=== PATIENT | male | born 1940 | race Caucasian/White ===

== ENCOUNTER → 2023-06-13 08:37 | Outpatient (REF) | payer OTHER, SELFPAY | LOC: RCS 08:37 | PROVIDERS: ATTENDING PHYSICIAN Internal Medicine Cardiovascular Disease; FAMILY PHYSICIAN Family Medicine | DX: I49.8 Other specified cardiac arrhythmias (principal) | CPT/HCPCS: 93225; 93226 ==

== ENCOUNTER → 2023-08-04 10:48 | Outpatient (REF) | payer OTHER, SELFPAY | LOC: DHCBC MAIN 10:48 | PROVIDERS: ATTENDING PHYSICIAN Internal Medicine Cardiovascular Disease; FAMILY PHYSICIAN Family Medicine | DX: Z95.1 Presence of aortocoronary bypass graft (principal); I35.0 Nonrheumatic aortic (valve) stenosis | CPT/HCPCS: 93306 ==

== ENCOUNTER 2023-11-19 13:17 | Inpatient (IN) | payer OTHER, SELFPAY ==
[2023-11-19] VITALS (36 sets, daily range): BP systolic 109–190; BP diastolic 73–129; BMI 27.2
[2023-11-19 10:34] LABS: % Basophils 0.5 % (0-2); % Immature Granulocytes 0.3 % (0-0.5); % Lymphocytes 15.3 % (20.5-51.1); % Monocytes 7.7 % (1.7-9.3); % Neutrophils 75.2 % (42.2-75.2); Absolute Eosinophils 0.1 10^3/uL (0-0.7); Absolute Lymphocytes 0.9 10^3/uL (1.2-3.4); Absolute Monocytes 0.5 10^3/uL (0.1-0.6); Absolute Neutrophils 4.5 10^3/uL (1.4-6.5); Hematocrit 39.1 % (39.0-52.0); Hemoglobin 13.3 g/dL (13.0-18.0); Mean Corpuscular Hgb 31.4 pg (27.0-31.0); Mean Corpuscular Volume 92.2 fL (80.0-94.0); Mean Platelet Volume 9.8 fL (7.4-10.4); Nucleated Red Blood Cells % 0 % (-); Platelet Count 203 10^3/uL (130-400); Red Blood Cell Count 4.24 10^6/uL (4.70-6.10); Red Cell Dist. Width 13.5 % (11.5-14.5)
[2023-11-19 10:52] LABS: ALT (SGPT) 16 U/L (0-50); AST (SGOT) 25 U/L (17-59); Albumin 3.5 g/dl (3.5-5.0); Alkaline Phosphatase 42 U/L (38-126); Blood Urea Nitrogen 19 mg/dl (9-20); Calcium 8.6 mg/dl (8.4-10.2); Carbon Dioxide 28 mmol/L (22-30); Chloride 105 mmol/L (98-107); Estimated Creatinine Clearance 56 ml/min; Glucose 97 mg/dl (70-99); Potassium 4.7 mmol/L (3.5-5.1); Sodium 137 mmol/L (135-145); Total Bilirubin 0.6 mg/dl (0.2-1.3); Total Protein 6.1 g/dl (6.3-8.2); eGFR > 60.00
--- NOTE | 2023-11-19 11:06 | ED.GENMED ---
History of Present Illness
<Geoff Kong PA-C - Last Filed: 11/19/23 14:33>
General
Chief Complaint: Heart Rate Problem
Time Seen by Provider: 11/19/23 09:46
History of Present Illness
History of Present Illness:
83-year-old male with history of paroxysmal SVT and A-fib currently on Eliquis presents to the emergency department for evaluation of heart palpitations for the past 4 days. He notes that the onset of symptoms he felt fatigued and his blood
pressure was low, as a result he has been taking less of his normal diltiazem throughout the week and his blood pressure has improved. He had similar symptoms last year and was in this emergency department, subsequently underwent electrical
cardioversion. He reports has been compliant with his Eliquis. He is also following with cardiology as an outpatient for aortic stenosis, last echo was July 2023 showing moderate to severe with dilated aortic root and ascending aorta. Patient
denies any chest pain or leg swelling. He states that shortness of breath is chronic and unchanged
Past History
<Geoff Kong PA-C - Last Filed: 11/19/23 14:33>
Past History
ED Past Medical History: CAD, HTN, Hypercholesterolemia, MT, Other (Hernia) and Other (BPH)
ED Past Surgical History: Cardiac (CABG)
Social History
Tobacco: Smoker (occasional Cigar)
Alcohol: Occasional
Drug: None
Personal:
Living: alone
Family History
Family History: Early CAD
Review of Systems
<Geoff Kong PA-C - Last Filed: 11/19/23 14:33>
Review of Systems
Allergies reviewed?: Yes
All Other Systems: ROS reviewed and negative except as documented in HPI and ROS
Phy Exam
<Geoff Kong PA-C - Last Filed: 11/19/23 14:33>
Physical Exam
Physical Exam:
GEN: Well appearing, NAD, WDWN
Eyes: PERRLA, EOMs intact, no scleral icterus
HENT: NCAT, oral mucosa moist, no JVD
Lungs: CTAB, no wheezes, rales, rhonchi, normal chest wall excursion
Cardiac: Tachycardic, regular, loud systolic murmur
Abdomen: S, NT, ND, NABS, no masses or hepatosplenomegaly
Neuro: AO x 3
MSK: No gross deformity or ecchymosis. No edema. No digital clubbing
Skin: No rashes, petechiae. Normal color, no pallor or jaundice.
Psych: Calm, cooperative, proper hygiene
Course
<Geoff Kong PA-C - Last Filed: 11/19/23 14:33>
Orders/Labs/Results
Orders:
Orders
11/19/23 09:41
Electrocardiogram (*1) Urgent
Reason for Study: Bradycardia / Tachycardia
EKG- Treatment ONCE
11/19/23 10:27
Complete Blood Count/With Diff Urgent
Comprehensive Metabolic Panel Urgent
Magnesium Urgent
11/19/23 10:31
TSH Reflex To Free T4 Urgent
Comment: ADD ON
11/19/23 11:15
Propofol [Diprivan] 20 ml .ROUTE .STK-MED
11/19/23 11:20
EKG [Electrocardiogram (*1)] Urgent
Reason for Study: Atrial Flutter
EKG- Treatment ONCE
11/19/23 13:02
Admit/Transfer Patient As Directed
Co-Sign Provider:
Level of Care: Inpatient admission
Assign to:: IVU
Physician / Group: mona alexander
Diagnosis: svt cardioversion w/ bradycardia/pausea, acclerated htn
Reason for Hospitalization: svt cardioversion w/ bradycardia/pausea, acclerated htn
Expected length of stay greater than two midnights?: Yes
ELOS- Estimated Length of Stay in days: 3
I certify the patient meets the requirements for IP care: Yes
Code Status As Directed
Resuscitation Status: Full Code
CARDIOLOGY CONSULT Routine
Consulting Provider: Ricardo Blanc
Was physician already notified: Yes
Reason for consult: svt, bradycardia with pauses post cardioversion
11/19/23 13:09
Add On- LAB Urgent
Tests Added?: tsh with free t4
11/19/23 13:16
HydrALAZINE [Apresoline] 5 mg IV NOW STA
11/19/23 Dinner
Cholesterol Lowering
At Your Request: Non-Participating
Cholesterol Lowering: Sodium, 2 Gram
Abnormal Lab Results
11/19/23
10:27
RBC 4.24 L 10^6/uL
(4.70-6.10)
MCH 31.4 H pg
(27.0-31.0)
Absolute Lymphs (auto) 0.9 L 10^3/uL
(1.2-3.4)
Lymphocytes % 15.3 L %
(20.5-51.1)
Total Protein 6.1 L g/dl
(6.3-8.2)
11/19/23 10:27
11/19/23 10:27
Vital Signs
Initial and Last Documented VS:
Initial Vital Signs
Temp Pulse Resp BP Pulse Ox
98.2 F 112 18 156/101 98
11/19/23 09:37 11/19/23 09:37 11/19/23 09:37 11/19/23 09:37 11/19/23 09:37
Last Documented Vital Signs
Temp Pulse Resp BP Pulse Ox
98.7 F 81 19 155/99 98
11/19/23 11:54 11/19/23 14:05 11/19/23 12:45 11/19/23 14:05 11/19/23 12:45
<Ricardo Parrish, - Last Filed: 11/19/23 12:58>
Orders/Labs/Results
Orders:
Orders
11/19/23 09:41
Electrocardiogram (*1) Urgent
Reason for Study: Bradycardia / Tachycardia
EKG- Treatment ONCE
11/19/23 10:27
Complete Blood Count/With Diff Urgent
Comprehensive Metabolic Panel Urgent
Magnesium Urgent
11/19/23 10:31
TSH Reflex To Free T4 Urgent
Comment: ADD ON
11/19/23 11:15
Propofol [Diprivan] 20 ml .ROUTE .STK-MED
11/19/23 11:20
EKG [Electrocardiogram (*1)] Urgent
Reason for Study: Atrial Flutter
EKG- Treatment ONCE
11/19/23 13:02
Admit/Transfer Patient As Directed
Co-Sign Provider:
Level of Care: Inpatient admission
Assign to:: IVU
Physician / Group: mona alexander
Diagnosis: svt cardioversion w/ bradycardia/pausea, acclerated htn
Reason for Hospitalization: svt cardioversion w/ bradycardia/pausea, acclerated htn
Expected length of stay greater than two midnights?: Yes
ELOS- Estimated Length of Stay in days: 3
I certify the patient meets the requirements for IP care: Yes
Code Status As Directed
Resuscitation Status: Full Code
CARDIOLOGY CONSULT Routine
Consulting Provider: Ricardo Blanc
Was physician already notified: Yes
Reason for consult: svt, bradycardia with pauses post cardioversion
11/19/23 13:09
Add On- LAB Urgent
Tests Added?: tsh with free t4
11/19/23 13:16
HydrALAZINE [Apresoline] 5 mg IV NOW STA
11/19/23 Dinner
Cholesterol Lowering
At Your Request: Non-Participating
Cholesterol Lowering: Sodium, 2 Gram
Abnormal Lab Results
11/19/23
10:27
RBC 4.24 L 10^6/uL
(4.70-6.10)
MCH 31.4 H pg
(27.0-31.0)
Absolute Lymphs (auto) 0.9 L 10^3/uL
(1.2-3.4)
Lymphocytes % 15.3 L %
(20.5-51.1)
Total Protein 6.1 L g/dl
(6.3-8.2)
11/19/23 10:27
11/19/23 10:27
Vital Signs
Initial and Last Documented VS:
Initial Vital Signs
Temp Pulse Resp BP Pulse Ox
98.2 F 112 18 156/101 98
11/19/23 09:37 11/19/23 09:37 11/19/23 09:37 11/19/23 09:37 11/19/23 09:37
Last Documented Vital Signs
Temp Pulse Resp BP Pulse Ox
98.7 F 81 19 155/99 98
11/19/23 11:54 11/19/23 14:05 11/19/23 12:45 11/19/23 14:05 11/19/23 12:45
Procedures
<Geoff Kong PA-C - Last Filed: 11/19/23 14:33>
Cardioversion
Indication:: SVT
Performed by:: Geoff Kong PA-C, Dillon Parrish, DO
Synchronized?: Yes
Energy Used: 150 joules
Number of attempts: 1
Successful?: Yes
Complications: severe bradycardia/sinus pauses post cardioversion
ASA Risk Score: Class III
Any reaction or bad outcome to prior sedation/anesthesia?: No history of a reaction
Sedation level to be attained: moderate
Chart and allergies reviewed: Yes
Patient reassessed prior to sedation: Yes
Time out completed at (validating right patient & procedure): 11:48
History of difficult intubation: No
Airway free of obstruction: Yes
Patient has a gag reflex: Yes
Patient is able to open mouth: Yes
Patient has no dentures: No (dentures removed)
Patient has no loose teeth: No
Medication administered by Provider during Moderate Sedation: IV Propofol (mg)
Total dose administered: 40
Time drug administered: 11:48
Start Time: 11:48
Stop Time: 11:58
<Geoff Kong PA-C - Last Filed: 11/19/23 14:33>
MDM/Problems Addressed
MDM/Problems Addressed:
Unfortunately post cardioversion the patient was noted to have severe bradycardic episodes with prolonged sinus pauses. He remained hemodynamically stable and mentating throughout these episodes. I reviewed the post procedure EKGs and telemetry
strips with cardiology who recommended admission for observation as the patient may require pacemaker if symptoms do not improve. Will be admitted to the hospital service
<Geoff Kong PA-C - Last Filed: 11/19/23 14:33>
*Critical Care Note
Total Time (30-74mins, 75-104mins- exclusive of procedures): Not Applicable
<Geoff Kong PA-C - Last Filed: 11/19/23 14:33>
Update Note
Update Note:
1202: After cardioversion patient is noted to have profound bradycardic episodes in the 30s, uncertain if this represents slow A-fib versus heart block. Blood pressure and mentation remained stable. Will review with cardiology
ED Attending Note
<Geoff Kong PA-C - Last Filed: 11/19/23 14:33>
-
Portions of this chart may have been created with voice recognition software.� Occasional wrong word or��sound alike� substitutions may have occurred due to the inherent limitations of voice recognition software.
<Ricardo Parrish DO - Last Filed: 11/19/23 12:58>
ED Attending Note
Patient seen and examined by attending physician: Yes
I performed the substantive portion of visit, reviewed & personally made and approve the management plan that is documented in note by myself or LETICIA.: Yes
ED Attending Note:
I agree with Faustino's note.
Patient presents to the emergency room for palpitations. Has a history of atrial flutter. He has been cardioverted in the past.
Physical exam
Awake, alert, oriented x 3
HEENT: Mallampati 1 airway
Heart: Mildly tachycardic, systolic ejection murmur present
Lungs: Clear bilaterally
EKG shows a flutter with 2 1 conduction.
We proceeded with cardioversion. Sedation went smoothly. However after being synchronously cardioverted with 150 J the patient converted to a sinus rhythm with significant pauses. He has frequent junctional escape beats and PVCs. Case discussed
with cardiology who recommends hospitalization for monitoring overnight.
Discharge Plan
Departure
Patient Disposition: Admit
Date of Disposition: 11/19/23
Time of Disposition: 12:24
Admit to: Telemetry
Presentation/result/management discussed w/ accepting MD/DO: Hospitalist
Discharge Problem:
Bradycardia, Paroxysmal supraventricular tachycardia
Interventions
Interventions:
*Risk Screen - Suicide Last Done: 11/19/23 10:26
*General Assessment Last Done: 11/19/23 10:39
*Neglect/Abuse Screening Last Done: 11/19/23 10:39
ED- Fall Risk Assessment Last Done: 11/19/23 10:40
*ED COVID-19 Vaccine History Last Done: 11/19/23 10:26
ED- Cardiac Assessment Last Done: 11/19/23 10:41
ED- Pulmonary Assessment Last Done: 11/19/23 10:40
--- NOTE | 2023-11-19 12:36 | HPS.HSE ---
Addendum entered and electronically signed by Juve Miller MD 11/19/23 13:49:
I saw and examined the patient.
The LINE PERSON or PA's note was reviewed and I agree with the note.
Comment: 83-year-old male with past medical history of A-fib, hypertension came to the hospital with persistent elevated heart rate. In the ED patient was noted to be in rapid SVT. Status post cardioversion and then later became bradycardic.
Cardiology wants to monitor patient in the hospital. Patient at this time appears hypertensive. Start hydralazine. Restart lisinopril. Monitor in IVU.
General: No Apparent Distress, Comfortable and Conversant; No Pain, Fever or Chills
HEENT: NormoCephalic, Anicteric and PERRLA
Respiratory: Clear; No Wheezes
Cardiac: S1/S2, Regular Rhythm (80 bpm on monitor with occasional PACs) and Murmur (4/6 systolic murmur with known aortic stenosis); No Rub, Gallop, Peripheral Edema or Calf Tenderness
Breast: Deferred by me
GI: Soft, Non Tender, Non Distended, Normal Bowel Sounds
Rectal: Deferred by Provider
Genito-urinary: Deferred by me
Musculoskeletal:No Edema
Neuro: AO x 3, No Motor Deficits, Nonfocal/grossly intact
Psych: Calm
I spent a total of 77 minutes with the patient or on the floor. More than 50% of this time involved counseling and coordination of care.
Addendum entered and electronically signed by JCARLOS Goode 11/19/23 13:32:
per cardiology will cont ASA 81 mg given hx cad/cabg and Eliquis for AFIB/Flutter
Original Note:
Family Physician
-
Family Physician: Irlanda Diaz
Chief Complaint
-
Elevated heart rate at home recent hypotension 5 days ago
History of Present Illness
83-year-old male from home, where he lives alone presenting to the ER for elevated heart rate 116's over the past 5 days along with fatigue and hypotension as low as 85/63 on Thursday feeling lightheaded and dizzy at that time. He reports he stopped
his lisinopril over the past 5 days and decreased his diltiazem from 30 mg 3 times daily to 30 mg once a day. He came to the ER for persistent elevated heart rates. Upon arrival in the ER he was noted to be in rapid SVT and was successfully
cardioverted but became bradycardic heart rate in the 30s with sinus pauses. His oral Cardizem is going to be held he will be monitored for his bradycardia. He denies recent fever, chills, cold, cough, headache, blurred vision, chest pain,
palpitations, shortness of breath, abdominal pain, nausea, vomit, diarrhea, urinary symptoms. Other past medical history includes moderate to severe aortic stenosis, dilated aortic root and ascending aorta, HTN, HLD, CAD/MS/CABG LEAL to LAD,
sequential SVG to diagonal to OM and SVG to RPDA 2010, BPH/stress incontinence urine/elevated PSA, occasional cigar smoker, abdominal hernia, ambulatory dysfunction, pulm fibrosis, impaired vision, chronic rotator cuff pain.
Medical History
Past Medical History
Past Medical History: Reports Other
Additional Past Medical History:
moderate to severe aortic stenosis
dilated aortic root and ascending aorta
HTN
HLD,
CAD/MS/CABG LEAL to LAD, sequential SVG to diagonal to OM and SVG to RPDA 2010
BPH/stress incontinence urine/elevated PSA,
occasional cigar smoker
Chronic ambulatory dysfunction uses cane for long distance
impaired vision
chronic rotator cuff pain
Past Surgical History: Reports Other
Additional Past Surgical History:
Hernia repair
CAD status post CABG LEAL to LAD, sequential SVG to diagonal to OM and SVG to RPDA 2010
Social History
Tobacco: Smoker (Occasional cigar smoker)
Alcohol: None
Drug: None
Personal: Single
Living: Alone
Employment: Retired
Family History
Family History: CAD (Father MS age 50 age 65 heart disease/alcohol abuse) and Other (Mother age 58 history of alcohol abuse, COPD, CHF, 1 brother alcohol abuse possibly mid 60s)
Allergies / Home Medications
Allergies reflects when Allergies were last updated in [facility].
Home Medications with original date entered in [facility]
Allergy/Medication List:
Allergies
Allergy/AdvReac Type Severity Reaction Status Date / Time
No Known Allergies Allergy Verified 11/19/23 09:40
Home Medications
multivitamin with folic acid 400 mcg tablet (Tab-A-Juan) 1 tab PO QPM Supplement 07/01/17
rosuvastatin 40 mg tablet (Crestor) 40 mg PO DAILY High cholesterol 07/01/17
vitamin E (dl, acetate) 45 mg (100 unit) capsule 100 units PO QPM Supplement 07/01/17
finasteride 5 mg tablet 5 mg PO DAILY Urinary issue 04/11/21
lisinopril 30 mg tablet (Zestril) 30 mg PO DAILY Blood pressure 04/11/21
tramadol 50 mg tablet 50 mg PO Q6HPRN PRN moderate pain 04/11/21
minoxidil 2.5 mg tablet 2.5 mg PO QPM Blood pressure 04/12/21
tamsulosin 0.4 mg capsule 0.4 mg PO QPM Urinary issue 04/12/21
diltiazem HCl 30 mg tablet 30 mg PO TID Blood Pressure 07/10/22
apixaban 5 mg tablet (Eliquis) 5 mg PO BID Blood Clot Prevention/Tx 03/17/23
Review of Systems
-
History Source: Patient
A 12 point ROS was completed and negative except as noted: Yes
Constitutional: Denies Fever, Fatigue or Chills
EENT: Denies Sore Throat, Mouth Swelling or Runny Nose
Respiratory: Denies Cough or Trouble Breathing
Cardiac: Reports Other (Elevated pulse at home); Denies Chest Pain, Diaphoresis or Palpitations
Abdomen/GI: Denies Abdominal Pain, Nausea, Vomiting, Diarrhea, Constipated, Bloody Stools or Black Stools
: Denies Dysuria, Frequency, Flank Pain, Incontinence, Difficulty Voiding or Urgency
Musculoskeletal: Denies Joint Pain or Edema
Skin: Denies Itching or Rash
Neurological: Denies Dizzy, Headache or Weakness
Endocrine: Reports No Symptoms
Hematologic/Lymphatic: Reports No Symptoms
Psych: Reports Calm
Physical Exam
Vital Signs
Vital Signs
Temp Pulse Resp BP Pulse Ox
98.7 F 56 12 143/78 98
11/19/23 11:54 11/19/23 12:04 11/19/23 12:04 11/19/23 12:04 11/19/23 12:04
Physical Exam
General: No Apparent Distress, Comfortable and Conversant; No Pain, Fever or Chills
HEENT: NormoCephalic, Anicteric and PERRLA
Respiratory: Clear; No Wheezes
Cardiac: S1/S2, Regular Rhythm (80 bpm on monitor with occasional PACs) and Murmur (4/6 systolic murmur with known aortic stenosis); No Rub, Gallop, Peripheral Edema or Calf Tenderness
Breast: Deferred by me
GI: Soft, Non Tender, Non Distended, Normal Bowel Sounds and No Hepatosplenomegaly
Rectal: Deferred by Provider
Genito-urinary: Deferred by me
Musculoskeletal: No Clubbing, No Cyanosis and No Edema
Skin: Warm and Dry; No Rash or Jaundice
Neuro: AO x 3, No Motor Deficits, Nonfocal/grossly intact, Cranial Nerves Intact and No Sensory Deficits; No DTR's Intact & Symmetrical, Slurred Speech, Facial Droop or Tremors
Psych: Calm
Laboratory Results
-
11/19/23 10:27
11/19/23 10:27
Laboratory Results
Total Bilirubin 0.6 mg/dl (0.2-1.3) 11/19/23 10:27
AST 25 U/L (17-59) 11/19/23 10:27
ALT 16 U/L (0-50) 11/19/23 10:27
Alkaline Phosphatase 42 U/L (38-126) 11/19/23 10:27
Impression/Plan
-
Impression/plan:
Admit to IVU
#Rapid SVT status post cardioversion in ER with resulting BRADYCARDIA and SINUS PAUSES
#Hx paroxysmal SVT/Paroxysmal A-fib
HR 112> 30 post cardioversion now currently HR [address] on pt
-Continue oral Eliquis
-Hold current diltiazem 30 mg 3 times daily
-Consult CBC cardiology
-Check TSH
2D echo 08/04/2023: EF 50-55%. Mid to basal inferior lateral and basal inferior wall hypokinesis. Moderate to severe aortic stenosis peak mean gradient 42/27 mmHg.
Dilated aortic root and ascending aorta 4.2 cm, 4.5 cm
#Hx of severe aortic stenosis
Patient reports as of now no current plan to replace until symptomatic
#CAD status post CABG LEAL to LAD, sequential SVG to diagonal to OM and SVG to RPDA 2010
--Continue oral Eliquis, Crestor
? Continue aspirin 81 mg�defer to cardiology
# HTN urgency /HTN�benign
183/110
190/110 right arm, 188/110 left arm
-IV hydralazine 5 mg now, 10 mg as needed every 6h SBP greater than 160
-RESUME lisinopril 30 mg daily-patient has not taken in the past 5 days
-Hold Cardizem 30 mg 3 times daily due to bradycardia
#HLD
-Continue Crestor 40 mg daily
#BPH/stress incontinence urine
#Hx elevated PSA stopping monitor at age 76
-Continue finasteride 5 mg daily, Flomax 0.4 mg every afternoon can be 30 3 times daily 30 cm right
#Chronic ambulatory dysfunction
-Uses cane long distance
pt/ot case mgmteval
#Occasional cigar smoker
Other PMH:
Diverticulosis
Impaired vision
Rotator cuff
DVT prophylaxis
Continue [employer] Eliquis
Full code
--- NOTE | 2023-11-19 13:13 | CON.CAR ---
Addendum entered and electronically signed by Ricardo Blanc MD 11/19/23 14:30:
Patient seen and examined in collaboration with RECEIVABLE CLERK; agree with below.
-83-year-old male with CAD status-post remote CABG (2010), moderate to severe aortic stenosis, paroxysmal atrial fibrillation/PSVT/Atach (on Eliquis), hypertension, and hyperlipidemia admitted with symptomatic atrial fibrillation with RVR.
-Patient was holding antihypertensive medications at home due to elevated heart rates and low blood pressure.
-Patient was electrically cardioverted in the ER, but subsequently developed bradycardia to the 30s (sinus bradycardia with occasional PACs and junctional escape).
-Patient should be admitted to the hospitalist service for monitoring on telemetry.
-May ultimately need to undergo permanent pacemaker; will have patient evaluated by EP Cardiology tomorrow to help make that determination.
-Hold diltiazem for now.
-NPO after midnight for now.
Original Note:
Consultation
Consultation Request
Date/Time Consultation Requested: 11/19/23 12:30p
Date/Time Consultation Performed: 11/19/23 12:45p
Requesting Provider: JCARLOS Goode
Performing Provider: JCARLOS Slaughter for Dr. Blanc
Reason for Consultation: bradycardia s/p CV for Aflutter
Medical History
-
Chief Complaint: elevated HR, dizziness
History of Present Illness:
Mr. Kaba is an 83 yo male with paroxysmal Afib on Eliquis, CAD s/p CABG 2010, moderate to severe , HTN, HLD and BPH, who presents to the ER with c/o dizziness, mild SOB and elevated HR 110-115 for 5 days. EKG in ER showed Aflutter 2:1 109 bpm.
He was cardioverted in the ER, confirmed no missed doses of Eliquis, which resulted in sinus bradycardia with PACs and ventricular escape beats. He states 5 days ago, Thursday, his BP was 85/63 with pulse 110 bpm and therefore he held his Lisinopril
30mg daily. His BP improved off Lisinopril, BP was stable and therefore he was only taking Diltiazem 30mg once a day (instead of TID). BP is now elevated in the ER. He is in NSR/SB with PACs and Diltiazem is held due to SB. He denies any cardiac
symptoms currently. He is admitted to the hospitalist service and we are consulted for sinus bradycardia, Aflutter/Afib and possible pacemaker.
Past Medical History
Past Medical History: Other (as above)
Past Surgical History: Other (as above)
Social History
Tobacco: Former Smoker
Alcohol: None
Living: Alone
Employment: Retired
Family History
Family History: Reviewed & Not Pertinent
Allergies / Home Medications
Allergy/AdvReac Type Severity Reaction Status Date / Time
No Known Allergies Allergy Verified 11/19/23 09:40
�Medication �Instructions �Recorded �Confirmed �Type
multivitamin with folic acid 400 1 tab PO QPM Supplement 07/01/17 11/19/23 History
mcg tablet (Tab-A-Juan)
rosuvastatin 40 mg tablet (Crestor) 40 mg PO DAILY High cholesterol 07/01/17 11/19/23 History
vitamin E (dl, acetate) 45 mg (100 100 units PO QPM Supplement 07/01/17 11/19/23 History
unit) capsule
finasteride 5 mg tablet 5 mg PO DAILY prostate issues 04/11/21 11/19/23 History
lisinopril 30 mg tablet (Zestril) 30 mg PO DAILY Blood pressure 04/11/21 11/19/23 History
tramadol 50 mg tablet 50 mg PO Q6HPRN PRN moderate pain 04/11/21 11/19/23 History
tamsulosin 0.4 mg capsule 0.4 mg PO QPM Urinary issue 04/12/21 11/19/23 History
diltiazem HCl 30 mg tablet 30 mg PO TID Arrhythmia 07/10/22 11/19/23 History
apixaban 5 mg tablet (Eliquis) 5 mg PO BID Blood Clot 03/17/23 11/19/23 History
Prevention/Tx
aspirin 81 mg tablet,delayed 81 mg PO DAILY Blood Clot 11/19/23 11/19/23 History
release Prevention/Tx
Review of Systems
-
History Source: Patient
All other systems: Negative unless noted
Physical Exam
Vital Signs
Temp Pulse Resp BP Pulse Ox
98.7 F 78 19 182/113 98
11/19/23 11:54 11/19/23 12:45 11/19/23 12:45 11/19/23 12:45 11/19/23 12:45
Lab Results
11/19/23 10:27
11/19/23 10:27
Physical Exam
General: Well Developed, Well Nourished and No Apparent Distress
HEENT: Normocephalic, Anicteric and Moist Mucous Membranes
Respiratory: Clear and Non Labored Respirations
Cardiac: S1/S2, Regular Rhythm (bradycardia at times) and Murmur (3/6 ZACKERY)
Breast: Deferred by me
GI: Soft, Non Tender, Non Distended and Normal Bowel Sounds
Rectal: Deferred by Provider
Genito-urinary: Clear Urine
Musculoskeletal: No Clubbing, No Cyanosis and No Edema
Skin: Warm and Dry
Neuro: AO x 3
Hematologic/Lymphatic: No Lymphadenopathy
Psych: Calm
Impression / Plan
-
Bradycardia - sinus, immediately after cardioversion
- hold Diltiazem 30mg TID and monitor on tele.
- tachy-zbigniew syndrome noted.
- plan for NPO after midnight and possible PPM tomorrow after seen by EP cardiology.
HTN - elevated in ER.
- due to holding Lisinopril and reduced Diltiazem doses for 5 days.
- IV Hydralazine now and resume Lisinopril and monitor.
- titrate Lisinopril as needed.
CAD - stable w/o angina.
- s/p CABG 2010.
- cath 2022 with patent bypass grafts.
ICM - previously 40-45%, resolved and now EF 50-55%.
- no overt HF symptoms.
- monitor.
echo 08/04/23: EF 50-55%, mid to basal inferolateral and basal inferior wall HK, normal RV size/function, mod-severe peak/mean gradients 42/27 mmHg, ALAINA 0.9 cm2, dilated aortic root/ascending aorta 4.2/4.5cm
Data Reviewed
-
EKG: Tracing Personally Visualized and interpreted (Aflutter 2:1 conduction 109 bpm)
Medical Tests (Nuc Med, Echo etc): Report Reviewed by me (echo 08/04/23: EF 50-55%, mid to basal inferolateral and basal inferior wall HK, normal RV size/function, mod-severe peak/mean gradients 42/27 mmHg, ALAINA 0.9 cm2, dilated aortic
root/ascending aorta 4.2/4.5cm)
Labs: Labs Reviewed by me
Old Records: Reviewed
--- NOTE | 2023-11-19 13:49 | W.PN.UPDATE ---
Update Note
Progress Note Update
For billing purposes only
[2023-11-19] MEDS: APRESOLINE 5 MG IV (14:05)
[2023-11-19 15:45] LABS: TSH Reflex To Free T4 2.31 uIU/ml (0.47-4.68)
--- NOTE | 2023-11-19 16:15 | CM ---
Reviewed chart. Met with Mr. Kaba to review discharge plans. He states prior to admission he resides alone in a second floor apartment with twelve steps to enter. He states prior to admission he was independent with ambulation in the apartment
but he uses a single point cane in the community. He states prior to admission he was independent with adls. He states he has a prescription plan and uses [facility]. He states he does not have any help in the home. He states his son resides
about an hour away. He states he [place] near the [place] and his neighbors are very supportive. Medical work-up in progress. The discharge plan is to return home when medically stable.
[2023-11-19] MEDS: FLOMAX PO (17:16)
[2023-11-19] MEDS: THERAGRAN 1 TABLET PO (17:16)
[2023-11-19] MEDS: FLOMAX 0.4 MG PO (18:03)
[2023-11-19] MEDS: ELIQUIS 5 MG PO (20:01)
[2023-11-20] VITALS (7 sets, daily range): BP systolic 131–172; BP diastolic 80–104; PULSE 79–80; BMI 26.9
[2023-11-20 05:07] LABS: % Basophils 0.5 % (0-2); % Eosinophils 2.3 % (0-6); % Immature Granulocytes 0.3 % (0-0.5); % Lymphocytes 18.2 % (20.5-51.1); % Monocytes 10.3 % (1.7-9.3); % Neutrophils 68.4 % (42.2-75.2); Absolute Eosinophils 0.1 10^3/uL (0-0.7); Absolute Lymphocytes 1.1 10^3/uL (1.2-3.4); Absolute Monocytes 0.6 10^3/uL (0.1-0.6); Absolute Neutrophils 4.2 10^3/uL (1.4-6.5); Hematocrit 38.8 % (39.0-52.0); Hemoglobin 13.2 g/dL (13.0-18.0); Mean Corpuscular Hgb 31.4 pg (27.0-31.0); Mean Corpuscular Volume 92.2 fL (80.0-94.0); Mean Platelet Volume 10.4 fL (7.4-10.4); Nucleated Red Blood Cells % 0 % (-); Platelet Count 192 10^3/uL (130-400); Red Blood Cell Count 4.21 10^6/uL (4.70-6.10); Red Cell Dist. Width 13.4 % (11.5-14.5); White Blood Cell Count 6.1 10^3/uL (4.8-10.8)
[2023-11-20 05:31] LABS: ALT (SGPT) 15 U/L (0-50); AST (SGOT) 23 U/L (17-59); Albumin 3.4 g/dl (3.5-5.0); Alkaline Phosphatase 48 U/L (38-126); Blood Urea Nitrogen 17 mg/dl (9-20); Carbon Dioxide 25 mmol/L (22-30); Chloride 105 mmol/L (98-107); Estimated Creatinine Clearance 61 ml/min; Glucose 90 mg/dl (70-99); Potassium 4.5 mmol/L (3.5-5.1); Sodium 137 mmol/L (135-145); Total Bilirubin 0.7 mg/dl (0.2-1.3); Total Protein 6.1 g/dl (6.3-8.2); eGFR > 60.00
--- NOTE | 2023-11-20 05:47 | PTCARENOTE ---
Pt NPO after midnight for possible pacemaker insertion today. Pt states that he doesn't think he needs it and doesn't really want it done. Encouraged pt to talk to physician. CHG bath done.
--- NOTE | 2023-11-20 05:48 | PTCARENOTE ---
Pt with occasional 2 second pause-see strip. Pt also had 2 episodes of heart rate 140s which were self limiting-see strip.
[2023-11-20] MEDS: CRESTOR 40 MG PO (08:17)
[2023-11-20] MEDS: ASPIR LOW (ENTERIC COATED) 81 MG PO (08:17)
[2023-11-20] MEDS: FLUSH (NSS) 1 FLUSH IV (08:18)
[2023-11-20] MEDS: ZESTRIL 30 MG PO (08:18)
[2023-11-20] MEDS: ELIQUIS 5 MG PO (08:18)
[2023-11-20] MEDS: PROSCAR 5 MG PO (08:18)
--- NOTE | 2023-11-20 11:13 | W.DS.TRANS ---
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
-
Discharge Instructions:
Sleep Apnea Risk Intermediate
Discharge Diagnosis/Procedures Afib
Diet Regular
Instructions:
Stand-Alone Forms:
Changes to Home Medications: No
Discharge Medications:
DC Medications w/original date entered in [employer]
multivitamin with folic acid 400 mcg tablet (Tab-A-Juan) 1 tab PO QPM Supplement 07/01/17
rosuvastatin 40 mg tablet (Crestor) 40 mg PO DAILY High cholesterol 07/01/17
vitamin E (dl, acetate) 45 mg (100 unit) capsule 100 units PO QPM Supplement 07/01/17
finasteride 5 mg tablet 5 mg PO DAILY prostate issues 04/11/21
lisinopril 30 mg tablet (Zestril) 30 mg PO DAILY Blood pressure 04/11/21
tramadol 50 mg tablet 50 mg PO Q6HPRN PRN moderate pain 04/11/21
tamsulosin 0.4 mg capsule 0.4 mg PO QPM Urinary issue 04/12/21
diltiazem HCl 30 mg tablet 30 mg PO TID Arrhythmia 07/10/22
apixaban 5 mg tablet (Eliquis) 5 mg PO BID Blood Clot Prevention/Tx 03/17/23
aspirin 81 mg tablet,delayed release 81 mg PO DAILY Blood Clot Prevention/Tx 11/19/23
Home Medication Changes
Pending Results: No
--- NOTE | 2023-11-20 12:53 | W.PN.UPDATE ---
Update Note
Progress Note Update
Atrial flutter with 2:1 conduction
Mild to moderate asymptomatic sinus node dysfunction
CAD
No class I indication for pacing
Perhaps a soft class II indication for pacing if we felt more meds needed and more bradycardia anticipated
Ablation of AFib and aflutter are options as well
I educated him about signs/symptoms of bradycardia that would warrant pacer placement
--- NOTE | 2023-11-20 13:01 | CM ---
Reviewed chart. Met with Mr. Kaba to review discharge plans. He states is feeling well and maybe able to go home soon. He did well in therapy today, ambulating a 100 feet with supervision. Prior to admission he resides alone in a second floor
apartment with twelve steps to enter. Prior to admission he was independent with ambulation in the apartment, but uses a single point cane in the community. Prior to admission he was independent with adls. He has a single point cane at home. He
has a prescription plan and uses [facility]. He has supportive neighbors. Medical work-up in progress. The discharge plan is to return home when medically stable.
== END 2023-11-20 13:49 | disposition home or self-care (01) | DRG 310 ==
LOC: IVU 13:17
PROVIDERS: Clinical Nurse Specialist Family Health; Physician Assistant; ADMITTING PHYSICIAN Internal Medicine; ATTENDING PHYSICIAN Internal Medicine; CONSULT PHYSICIAN Internal Medicine; EMERGENCY PHYSICIAN Emergency Medicine; FAMILY PHYSICIAN Family Medicine
PROC: 5A2204Z Restoration of Cardiac Rhythm, Single (ICD-10-PCS; 2023-11-19)
DX: I48.0 Paroxysmal atrial fibrillation (principal); I47.10 Supraventricular tachycardia, unspecified; I16.0 Hypertensive urgency; I10 Essential (primary) hypertension; I35.0 Nonrheumatic aortic (valve) stenosis; I77.810 Thoracic aortic ectasia; J84.10 Pulmonary fibrosis, unspecified; I95.9 Hypotension, unspecified; Z95.1 Presence of aortocoronary bypass graft; I25.10 Atherosclerotic heart disease of native coronary artery without angina pectoris; I25.2 Old myocardial infarction; I25.5 Ischemic cardiomyopathy; I49.1 Atrial premature depolarization; I48.92 Unspecified atrial flutter; E78.5 Hyperlipidemia, unspecified; N40.1 Benign prostatic hyperplasia with lower urinary tract symptoms; N39.3 Stress incontinence (female) (male); F17.290 Nicotine dependence, other tobacco product, uncomplicated; R26.89 Other abnormalities of gait and mobility; R00.1 Bradycardia, unspecified; Z79.01 Long term (current) use of anticoagulants; Z79.899 Other long term (current) drug therapy; Z87.19 Personal history of other diseases of the digestive system; Z82.49 Family history of ischemic heart disease and other diseases of the circulatory system
CPT/HCPCS: 80053; 83735; 84443; 85025; 92960; 93005; 97161; 97165; 99152; 99285

== ENCOUNTER 2024-01-02 03:45 | Inpatient (IN) | payer OTHER, SELFPAY ==
[2024-01-01 21:55] VITALS: BP 118/72
[2024-01-01 22:11] LABS: % Basophils 0.4 % (0-2); % Eosinophils 0.7 % (0-6); % Immature Granulocytes 0.3 % (0-0.5); % Lymphocytes 10.8 % (20.5-51.1); % Monocytes 8.8 % (1.7-9.3); Absolute Eosinophils 0.1 10^3/uL (0-0.7); Absolute Lymphocytes 0.8 10^3/uL (1.2-3.4); Absolute Monocytes 0.6 10^3/uL (0.1-0.6); Absolute Neutrophils 5.7 10^3/uL (1.4-6.5); Hematocrit 24.6 % (39.0-52.0); Hemoglobin 8.6 g/dL (13.0-18.0); Mean Corpuscular Hgb 32.6 pg (27.0-31.0); Mean Corpuscular Volume 93.2 fL (80.0-94.0); Mean Platelet Volume 10.8 fL (7.4-10.4); Nucleated Red Blood Cells % 0 % (-); Platelet Count 172 10^3/uL (130-400); Red Blood Cell Count 2.64 10^6/uL (4.70-6.10); Red Cell Dist. Width 13.5 % (11.5-14.5); White Blood Cell Count 7.2 10^3/uL (4.8-10.8)
[2024-01-01 22:27] LABS: APTT 32.9 Sec (23.4-35.0)
[2024-01-01 22:40] LABS: NT-proBNP 1660 pg/ml; Troponin I 0.107 ng/ml
[2024-01-01 23:02] VITALS: BP 98/54
[2024-01-01 23:52] VITALS: BP 144/78
[2024-01-01 23:53] VITALS: BP 147/86
[2024-01-02] VITALS (21 sets, daily range): BP systolic 110–155; BP diastolic 57–89; PULSE 53–94; O2SAT 98; BMI 27.2; BMI 26.6
[2024-01-02 00:39] LABS: ALT (SGPT) 21 U/L (0-50); AST (SGOT) 47 U/L (17-59); Albumin 3.1 g/dl (3.5-5.0); Alkaline Phosphatase 43 U/L (38-126); Blood Urea Nitrogen 20 mg/dl (9-20); Calcium 8.8 mg/dl (8.4-10.2); Carbon Dioxide 24 mmol/L (22-30); Chloride 106 mmol/L (98-107); Estimated Creatinine Clearance 61 ml/min; Glucose 113 mg/dl (70-99); Sodium 139 mmol/L (135-145); Total Bilirubin 0.4 mg/dl (0.2-1.3); Total Protein 5.5 g/dl (6.3-8.2); eGFR > 60.00
--- NOTE | 2024-01-02 01:56 | ED.GENMED ---
History of Present Illness
General
Chief Complaint: Breathing Problem
Source: patient and records
Exam Limitations: none
Time Seen by Provider: 01/01/24 23:37
Nursing documentation reviewed up to this point in time: agreed with
History of Present Illness
History of Present Illness:
Patient is an 83-year-old male with a history of aortic stenosis who presents to the emergency department with increasing weakness and shortness of breath. 3 days ago the patient was admitted to a different hospital after having rectal bleeding.
Patient was discharged at 4 PM today. Patient got home and went up steps and felt very very short of breath. Patient rested and continue to feel short of breath. Around 8 PM the patient laid down and did not feel any improvement so he came to the
emergency department. Patient stools the past 2 days have been dark and he has had 3 loose stools since that time. Patient denies chest pain, fever or chills. Patient denies any abdominal pain, nausea, vomiting. Patient denies any leg pain or
swelling. Patient denies any symptoms. Patient states they contemplated doing a transfusion but ultimately did not. Patient is not taking his Eliquis presently after the bleeding.
Past History
Past History
ED Past Medical History: Arrthythmia, CAD, HTN, Hypercholesterolemia, [place], Valvular disease, Other (Hernia) and Other (BPH)
ED Past Surgical History: Cardiac (CABG)
Social History
Tobacco: Former smoker (occasional Cigar)
Alcohol: Occasional
Drug: None
Personal:
Living: alone
Family History
Family History: Early CAD
Review of Systems
Review of Systems
All Other Systems: ROS reviewed and negative except as documented in HPI and ROS
Constitutional: Reports fatigue; Denies fever or chills
EENT: Reports no symptoms
Respiratory: Reports trouble breathing
Cardiac: Reports no symptoms
ABD/GI: Reports diarrhea and black stools; Denies abdominal pain, nausea or vomiting
: Reports no symptoms
Musculoskeletal: Reports no symptoms
Skin: Reports no symptoms
Neurological: Reports no symptoms
Hematologic/Lymphatic: Denies bruising
Phy Exam
Physical Exam
Physical Exam:
Physical Exam
General: mild distress, alert and appropriate, well nourished, well hydrated
HENT: Normocephalic, supple with no lymphadenopathy, no thyromegaly
Eyes: Clear sclera, conjuctiva without injection
Heart: Regular rhythm and rate. No S3, S4. Grade 3/6 holosystolic harsh murmur heard best at the base. No NVD
Lungs: No respiratory distress, no stridor, lung sounds clear and equal bilaterally
Abdomen: Soft, nontender, no organomegaly, BS good
Neuro: Alert and oriented x 3, CN II - XII intact, no motor focality
Skin: no rash. Pale
Psychiatric: well kept. interactive and cooperative
Extremities: No edema, cyanosis, tenderness
Scores
Heart Failure Risk
Heart Failure Risk Score: Not Applicable
Course
Orders/Labs/Results
Orders:
Orders
01/01/24 21:59
Electrocardiogram (*1) Urgent
Reason for Study: Shortness of Breath
EKG- Treatment ONCE
CR Chest - 2 Views Urgent
Comment:
Reason For Exam: SOB
01/01/24 22:04
Complete Blood Count/With Diff Urgent
NT-proBNP Urgent
PTT Urgent
Troponin I Urgent
01/01/24 22:41
Comprehensive Metabolic Panel Urgent
01/02/24 00:17
Type+Screen Urgent
01/02/24 01:55
Blood Bank Products [* Blood Bank Products] Urgent
Blood Bank Products: *Packed RBC Leuko(PRBC's)
Quantity: 2
Transfuse Today: Yes
Reason: Anemia
Abnormal Lab Results
01/01/24 01/02/24
22:04 00:17
RBC 2.64 L 10^6/uL
(4.70-6.10)
Hgb 8.6 L g/dL
(13.0-18.0)
Hct 24.6 L %
(39.0-52.0)
MCH 32.6 H pg
(27.0-31.0)
MPV 10.8 H fL
(7.4-10.4)
Absolute Lymphs (auto) 0.8 L 10^3/uL
(1.2-3.4)
Neutrophils % 79.0 H %
(42.2-75.2)
Lymphocytes % 10.8 L %
(20.5-51.1)
Glucose 113 H mg/dl
(70-99)
Troponin I 0.107 H* ng/ml
Total Protein 5.5 L g/dl
(6.3-8.2)
Albumin 3.1 L g/dl
(3.5-5.0)
Crossmatch IS Only See Detail
01/01/24 22:04
01/02/24 00:17
Vital Signs
Initial and Last Documented VS:
Initial Vital Signs
Temp Pulse Resp BP Pulse Ox
98.1 F 57 18 118/72 96
01/01/24 21:55 01/01/24 21:55 01/01/24 21:55 01/01/24 21:55 01/01/24 21:55
Last Documented Vital Signs
Temp Pulse Resp BP Pulse Ox
98.1 F 86 22 149/77 99
01/01/24 21:55 01/02/24 00:30 01/02/24 00:30 01/02/24 00:21 01/02/24 00:30
*Radiology
Radiology exam reviewed: other (na)
*Pulse Oximetry
Patient hypoxic: no
*EKG
Interpreted by ED Provider?: Yes
EKG Intrepretation Date: 01/02/24
EKG Intrepretation Time: 02:08
Interpretation: abnormal
Comparison EKG: changes noted
Heart Rate: 78
Rate: normal
Rhythm: sinus and PAC's
[place]: left axis deviation
Interval: normal interval
QRS Pattern: normal QRS
Ischemia: non-specific ST changes
*Patient Registration Rep Interpretation
Rate: normal
Interpretation: normal
Heart Rate: 80
Rhythm: sinus
*Critical Care Note
Total Time (30-74mins, 75-104mins- exclusive of procedures): Not Applicable
Update Note
Update Note:
Patient is troponin is mildly high for him. Given the patient's shortness of breath and anemia which seems to be acute we will transfuse from 8.8 to get him up closer to his norm of 13-14. If it was not for the elevated troponin would probably not
transfused but the patient symptomatic and has apparent endorgan damage.
ED Attending Note
-
Portions of this chart may have been created with voice recognition software.� Occasional wrong word or��sound alike� substitutions may have occurred due to the inherent limitations of voice recognition software.
Discharge Plan
Departure
Patient Disposition: Admit
Date of Disposition: 01/02/24
Time of Disposition: 02:09
Admit to: Telemetry
Admit to doctor: Hospitalist
Presentation/result/management discussed w/ accepting MD/DO: Hospitalist
Patient with high blood pressure during this ER visit?: No
Condition: Serious
Covid-19: Not Applicable
Discharge Problem:
GI (gastrointestinal bleed), Elevated troponin, Anemia after GI bleed
Prescriptions:
No Action
rosuvastatin [Crestor] 40 MG tablet
40 mg PO DAILY
vitamin E (dl, acetate) 100 UNITS capsule
100 units PO QPM
multivitamin with folic acid [Tab-A-Juan] 1 TABLET tablet
1 tab PO QPM
tramadol 50 MG tablet
50 mg PO Q6HPRN PRN (Reason: moderate pain)
lisinopril [Zestril] 30 MG tablet
30 mg PO DAILY
finasteride 5 MG tablet
5 mg PO DAILY
tamsulosin 0.4 MG capsule
0.4 mg PO QPM
diltiazem HCl 30 mg Tablet
30 mg PO TID
aspirin 81 mg Tablet,Delayed Release (Dr/Ec)
81 mg PO DAILY
Referrals:
Irlanda Diaz MD [Family Provider] -
Interventions
Interventions:
*Risk Screen - Suicide Last Done: 01/01/24 21:55
*General Assessment Last Done: 01/01/24 21:55
*Neglect/Abuse Screening Last Done: 01/01/24 21:55
ED- Fall Risk Assessment Last Done: 01/01/24 23:17
ED- Cardiac Assessment Last Done: 01/01/24 23:17
ED- Pulmonary Assessment Last Done: 01/01/24 23:17
Discharge Date and Time
Print Language: URDU
--- NOTE | 2024-01-02 03:15 | HPS.HSE ---
Family Physician
-
Family Physician: Irlanda Diaz
Chief Complaint
-
SOB
History of Present Illness
Patient is an 83y M with PMH significant for ASCVD, paroxysmal A-Fib / Flutter and moderate - severe who presents to ED complaining of SOB. Patient states that he developed BRBPR on Thursday evening. He planned to see his doctor the following
day for evaluation. He woke at 3 AM with a large bloody bowel movement and felt nauseated, lightheaded and diaphoretic. He called 911 and was taken to [facility] for evaluation. Patient states that his Eliquis was 'reversed' and his Hgb was monitored.
He did not receive any blood products during that stay. He did not undergo colonoscopy / endoscopy for further evaluation. Patient notes prior history of diverticular disease with similar presentations.
He was discharged to home around 4 PM today. Patient states that he felt mildly SOB with activity in the hospital - though he only ambulated about 6 feet at most from his bed to the bathroom.
After return home, patient appreciated much more significant shortness of breath as he was required to ambulate longer distances. He also felt lightheaded / dizzy.
His symptoms seemed to worsen throughout the night and the patient presented to the ED here for further evaluation.
Patient states that his last dose of Eliquis was Thursday AM.
He has had no BRBPR in the past 48 hours; however, he does note that his BMs have been very dark over that time.
Patient has no chest pain / pressure and no palpitations. He denies any abdominal pain or N/V.
Medical History
Past Medical History
Past Medical History: Reports Other
Additional Past Medical History:
ASCVD
Moderate - Severe Aortic Stenosis
Hypertension
Ischemic Cardiomyopathy with Recovered EF
Paroxysmal Atrial Fibrillation / Flutter
Diverticular Disease
BPH
Past Surgical History: Reports Other
Additional Past Surgical History:
CABG x 4
Hernia Repair
Social History
Tobacco: Former Smoker (Quit smoking cigarettes in 1977. Has occasional cigar.)
Alcohol: None
Family History
Family History: Not pertinent
Allergies / Home Medications
Allergies reflects when Allergies were last updated in [employer] [facility].
Home Medications with original date entered in [employer] [facility]
Allergy/Medication List:
Allergies
Allergy/AdvReac Type Severity Reaction Status Date / Time
No Known Allergies Allergy Verified 01/01/24 21:55
Home Medications
multivitamin with folic acid 400 mcg tablet (Tab-A-Juan) 1 tab PO QPM Supplement 07/01/17
rosuvastatin 40 mg tablet (Crestor) 40 mg PO DAILY High cholesterol 07/01/17
vitamin E (dl, acetate) 45 mg (100 unit) capsule 100 units PO QPM Supplement 07/01/17
finasteride 5 mg tablet 5 mg PO DAILY prostate issues 04/11/21
lisinopril 30 mg tablet (Zestril) 30 mg PO DAILY Blood pressure 04/11/21
tramadol 50 mg tablet 50 mg PO Q6HPRN PRN moderate pain 04/11/21
tamsulosin 0.4 mg capsule 0.4 mg PO QPM Urinary issue 04/12/21
diltiazem HCl 30 mg tablet 30 mg PO TID Arrhythmia 07/10/22
aspirin 81 mg tablet,delayed release 81 mg PO DAILY Blood Clot Prevention/Tx 11/19/23
Review of Systems
-
History Source: Patient
A 12 point ROS was completed and negative except as noted: Yes
Constitutional: Reports Fatigue; Denies Fever or Chills
EENT: Denies Sore Throat
Respiratory: Reports Trouble Breathing; Denies Cough
Cardiac: Denies Chest Pain, Diaphoresis or Palpitations
Abdomen/GI: Reports Black Stools; Denies Abdominal Pain, Nausea, Vomiting, Diarrhea or Bloody Stools
: Denies Dysuria, Frequency or Flank Pain
Musculoskeletal: Denies Joint Pain or Edema
Neurological: Reports Dizzy; Denies Headache
Psych: Denies Depression or Anxiety
Physical Exam
Vital Signs
Vital Signs
Temp Pulse Resp BP Pulse Ox
98.1 F 84 32 138/76 100
01/01/24 21:55 01/02/24 02:45 01/02/24 02:45 01/02/24 02:40 01/02/24 02:45
Physical Exam
General: Other (83y M in no acute distress.)
HEENT: Moist mucous membranes and PERRLA
Respiratory: Clear; No Wheezes, Rales or Rhonchi
Cardiac: S1/S2, Regular Rhythm and Murmur (IV/ ZACKERY)
GI: Soft, Non Tender, Non Distended and Normal Bowel Sounds
Musculoskeletal: No Clubbing, No Cyanosis and No Edema
Neuro: AO x 3
Laboratory Results
-
01/01/24 22:04
01/02/24 00:17
Laboratory Results
APTT 32.9 Sec (23.4-35.0) 01/01/24 22:04
Total Bilirubin 0.4 mg/dl (0.2-1.3) 01/02/24 00:17
AST 47 U/L (17-59) 01/02/24 00:17
ALT 21 U/L (0-50) 01/02/24 00:17
Alkaline Phosphatase 43 U/L (38-126) 01/02/24 00:17
Troponin I 0.107 ng/ml H* 01/01/24 22:04
Impression/Plan
-
A/P: Patient is an 83y M with PMH significant for ASCVD, and diverticular disease who presents to ED complaining of worsening SOB s/p recent GI bleeding episode.
Symptomatic Blood Loss Anemia
Recent Diverticular Bleeding
- Admit for further evaluation and treatment.
- Hgb = 8.6. Baseline is 13-14 as recently as one month ago.
- Patient states that Hgb on Thursday at [facility] was 9.4.
- Suspect that significant change in Hgb coupled with underlying severe has led to worsening dyspnea.
- Transfusion ordered in the ED - follow for clinical improvement.
- Monitor for any evidence of recurrent or ongoing blood loss.
- Consider GI evaluation if any evidence of active bleeding.
- Would remain off of Eliquis for now (advised to hold for 1 week by [facility]).
Moderate - Severe
- Suspect that dyspnea and lightheadedness are symptoms of - likely exacerbated by blood loss anemia as noted above.
- Follow for improvement in symptoms with transfusion as noted above.
- Cardiology evaluation.
- Patient notes that he is scheduled for follow-up Echo in the next few weeks.
ASCVD
- Stable. Continue current med regimen including ASA, statin, etc.
- Troponin mildly elevated but without chest pain or significant EKG changes.
- Follow to peak and monitor for any new symptoms / complaints.
Paroxysmal Atrial Fibrillation
- Stable. Currently in sinus rhythm.
- Continue diltiazem for rate control with holding parameters.
- Continue to hold Eliquis for a few more day s/p recent GI bleeding episode.
Benign Hypertension
- Stable. Continue outpatient medications with holding parameters.
BPH
- Stable. Continue Proscar and Flomax.
- Bladder scan protocol.
DVT Prophylaxis: SCDs
Code Status: Full
--- NOTE | 2024-01-02 06:19 | PTCARENOTE ---
Pt. admitted from E.D., AAO x 3, vs stable, PRBC's transfusing, pt. ambulated from stretcher to bed, call allen within reach.
[2024-01-02 07:38] LABS: Iron 85 ug/dl (49-181)
[2024-01-02 07:48] LABS: Percent Saturation 44 % (20-50); Total Iron Binding Capacity 191 ug/dl (261-462)
[2024-01-02 07:51] LABS: Troponin I 0.112 ng/ml
[2024-01-02 08:15] LABS: Hemoglobin 8.9 g/dL (13.0-18.0); Mean Corp Hgb Conc. 34.2 g/dL (33.0-37.0); Mean Corpuscular Hgb 31.6 pg (27.0-31.0); Mean Corpuscular Volume 92.2 fL (80.0-94.0); Mean Platelet Volume 11.2 fL (7.4-10.4); Platelet Count 156 10^3/uL (130-400); Red Blood Cell Count 2.82 10^6/uL (4.70-6.10); Red Cell Dist. Width 13.7 % (11.5-14.5); White Blood Cell Count 5.5 10^3/uL (4.8-10.8)
--- NOTE | 2024-01-02 09:53 | W.PN.HOSP.TC ---
Addendum entered and electronically signed by Jay Rodriguez DO 01/02/24 22:52:
#Elevated troponin:
-acute non-ischemic myocardial injury in setting of anemia
-no chest pain or acute ischemic changes on ECG
Original Note:
Today's Communication/Plan
-
GI consult
Hold Eliquis
Repeat CBC after second unit
Consider further blood products per CBC and symptoms
Assessment / Plan
Assessment / Plan
#Symptomatic blood loss anemia -- DDx include UGIB, diverticular bleed, AVM (Heyde syndrome with severe )
#Recent diverticular bleed -- Hospitalized at [facility], no colonoscopy performed per patient history
#Exertional dyspnea
-Hemoglobin baseline near 13, was normal about a month ago prior to development of bleeding symptoms
-Hospitalized at [facility] recently for suspected diverticular bleed, hemoglobin on discharge that was 9.4
-Main complaint symptomatically is dyspnea with exertion, suspect related to anemia and severe aortic stenosis
-Hemoglobin on arrival here was 8.6, 2 units of PRBC were ordered; hemoglobin 8.9 after 1 unit PRBC
-Home medications include aspirin and Eliquis; Eliquis has been held since admission at [facility]
-GI consulted for consideration of EGD, colonoscopy
Plan
-Repeat CBC after second unit of blood
-Transfuse for hemoglobin <7 or continued symptoms
-Increase IV PPI to twice daily dosing
-May ultimately require video capsule if scopes are negative
-Hold Eliquis, consider holding aspirin if not responding to PRBC
#Moderate to Severe
-TTE in July showed ALAINA 0.9 cm�, peak gradients 42 mmHg, mean gradient 27 mm
-He currently seems euvolemic, no signs of volume overload after receiving PRBCs
-Does increase his risk for hide syndrome, colon and small bowel AVMs
-Cardiology consulted on admission, scheduled for repeat TTE soon in OP setting
#HFrecEF
#ASCVD/CAD/ischemic CM
#S/P CABG x4
-TTE in July showed LVEF 50 to 55%, inferolateral and basilar wall hypokinesis
-GDMT: MALU inhibitor, aspirin, high intensity statin; no DAPT as on Eliquis for AF/AFL
-Currently on diltiazem though no contraindication as LVEF is preserved
-Not currently on any standing loop diuretic therapy; appears euvolemic
-Would consider SGLT2i and/or MRA as an outpatient
#Paroxysmal AF/AFL
-Home medications include diltiazem for rate control with holding parameters; was on Eliquis for anticoagulation
-No known history of electrophysiological interventions; Eliquis has been held since recent admission at [facility] for anemia
-Currently in normal sinus rhythm without significant ectopy on exam
-Will continue to hold Eliquis as above
#Benign Hypertension
-Home antihypertensive regimen includes lisinopril; diltiazem not first-line agent for BP, minimal effect
-Blood pressures currently well-controlled, no indication to escalate therapy
#BPH
-Home medications include Flomax and finasteride
-No signs of urinary obstruction at this time
DVT Prophylaxis: SCDs
Diet: Clear liquid diet
Code Status: Full
Anticipated Discharge: 24 - 48 hours
Subjective/Interval History
-
Date of Service: January 02, 2024
Objective Data
-
Labs:
Laboratory Results
01/01/24 01/02/24 01/02/24
22:04 00:17 06:42
WBC 7.2 5.5
Hgb 8.6 L 8.9 L
Hct 24.6 L 26.0 L
Plt Count 172 156
APTT 32.9
Sodium Cancelled 139
Potassium Cancelled 4.0
Chloride Cancelled 106
Carbon Dioxide Cancelled 24
BUN Cancelled 20
Creatinine Cancelled 1.0
Glucose Cancelled 113 H
Calcium Cancelled 8.8
Total Bilirubin Cancelled 0.4
AST Cancelled 47
ALT Cancelled 21
Alkaline Phosphatase Cancelled 43
01/02/24
10:30
WBC
Hgb Pending
Hct Pending
Plt Count
APTT
Sodium
Potassium
Chloride
Carbon Dioxide
BUN
Creatinine
Glucose
Calcium
Total Bilirubin
AST
ALT
Alkaline Phosphatase
Vital Signs:
Vital Signs
Temp Pulse Resp BP Pulse Ox
98.5 F 82 18 146/74 98
01/02/24 07:32 01/02/24 07:32 01/02/24 07:32 01/02/24 07:32 01/02/24 05:52
I&O
01/01/24 01/02/24 01/03/24
06:59 06:59 06:59
Intake Total 250 / 250 0 / 0
Balance 250 / 250 0 / 0
[2024-01-02] MEDS: PROTONIX IV 40 MG IV ×2 (10:20→22:21)
--- NOTE | 2024-01-02 10:20 | CON.CAR ---
Addendum entered and electronically signed by Dave Fields MD 01/02/24 12:47:
I personally evaluated and examined the patient. I agree with the note, documentation and plan of care as noted below.
Briefly, 83-year-old gentleman with history of coronary disease status post CABG, moderate to severe aortic stenosis, hypertension, ischemic cardiomyopathy with LVEF fluctuating between 40 to 50%, history of SVT/A. tach/atrial flutter, pulmonary
fibrosis who presented with acute GI bleeding. Patient was admitted at an outside hospital and discharged home. He is still severely anemic and symptomatic with his anemia. Patient does have severe aortic stenosis noted on the echo. However,
patient's aortic gradient is not severe enough for emergent valve replacement/TAVR. We would recommend keeping hemoglobin adequately above 8 g per DL. Continue GI workup including possible EGD and colonoscopy.
We will continue to follow with you.
Original Note:
Consultation
Consultation Request
Date/Time Consultation Requested: 01/02/24628
Date/Time Consultation Performed: 01/02/24 1020
Requesting Provider: Dr. Khan
Performing Provider: Germaine GARBER for Dr. Fields
Reason for Consultation: aortic stenosis, abnormal troponin
Medical History
-
Chief Complaint: SOB, weakness, dizziness
History of Present Illness:
83 y/o male with CAD s/p CABG 2010, moderate- severe aortic stenosis, BPH, hypertension, orthostatic hypotension, dyslipidemia, ICM EF 40-45% (most recent 50-55%), SVT/AT s/p CV 2022, Atrial flutter, bradycardia, pulmonary fibrosis who is here for
SOB. He was recently in [place] for significant rectal bleeding. He tells me he was not transfused, but received Eliquis reversal agent. He was told it was a diverticular bleed and to remain off Eliquis for one week. He was sent home yesterday,
but had SOB, weakness, and dizziness, so came to the ER here. Hgb was 8.6 and he is s/p 2 units PRBC's and is feeling much better. Hgb post transfusion is pending. Trop is 0.112. He has no CP.
Past Medical History
Past Medical History: Arrhythmias, CAD, HTN, Hypercholesterolemia, Valvular Disease and Other (as above)
Social History
Tobacco: Non-Smoker
Family History
Family History: Reviewed & Not Pertinent
Allergies / Home Medications
Allergy/AdvReac Type Severity Reaction Status Date / Time
No Known Allergies Allergy Verified 01/01/24 21:55
�Medication �Instructions �Recorded �Confirmed �Type
multivitamin with folic acid 400 1 tab PO QPM Supplement 07/01/17 01/01/24 History
mcg tablet (Tab-A-Juan)
rosuvastatin 40 mg tablet (Crestor) 40 mg PO DAILY High cholesterol 07/01/17 01/01/24 History
vitamin E (dl, acetate) 45 mg (100 100 units PO QPM Supplement 07/01/17 01/01/24 History
unit) capsule
finasteride 5 mg tablet 5 mg PO DAILY prostate issues 04/11/21 01/01/24 History
lisinopril 30 mg tablet (Zestril) 30 mg PO DAILY Blood pressure 04/11/21 01/01/24 History
tramadol 50 mg tablet 50 mg PO Q6HPRN PRN moderate pain 04/11/21 01/01/24 History
tamsulosin 0.4 mg capsule 0.4 mg PO QPM Urinary issue 04/12/21 01/01/24 History
diltiazem HCl 30 mg tablet 30 mg PO TID Arrhythmia 07/10/22 01/01/24 History
aspirin 81 mg tablet,delayed 81 mg PO DAILY Blood Clot 11/19/23 01/01/24 History
release Prevention/Tx
Review of Systems
-
History Source: Patient
All other systems: Negative unless noted
Respiratory: Trouble Breathing
Abdomen/GI: Other (rectal bleeding)
Neurological: Dizzy and Weakness
Physical Exam
Vital Signs
Temp Pulse Resp BP Pulse Ox
97.7 F 72 18 155/79 98
01/02/24 09:30 01/02/24 09:30 01/02/24 09:30 01/02/24 09:30 01/02/24 05:52
Lab Results
01/02/24 00:17
Troponin I 0.112 ng/ml H* 01/02/24 06:42
Sxb-T-Yuuwsssnhzp Pept 1660 pg/ml 01/01/24 22:04
Physical Exam
General: Well Developed, Well Nourished and No Apparent Distress
HEENT: Normocephalic and Anicteric
Respiratory: Clear and Non Labored Respirations
Cardiac: Regular Rhythm
Musculoskeletal: No Edema
Skin: Warm and Dry
Neuro: AO x 3
Psych: Calm
Impression / Plan
-
Acute anemia, GIB:
-this is severe in that he was symptomatic, has required PRBC's, and has abnormal troponin with this. He is feeling much better s/p transfusion. Awaiting repeat hgb.
-GI is consulted
-on PPI
-Eliquis held
Abnormal troponin:
-acute non-ischemic myocardial injury in setting of anemia
-no CP
-0.112- trend to peak
Moderate to severe :
-continue to assess as OP with Dr. Guerrero
-monitor volume status, which currently appears stable
PAF:
-stable in SR
-Eliquis held as above ([id number] score at least 4 for age, hypertension, CAD)
-continue diltiazem and follow telemetry
HTN:
-relatively stable
-continue ACEI and CCB and monitoring
CAD s/p CABG:
-stable without CP
-ASA continued
Data Reviewed
-
EKG: Tracing Personally Visualized and interpreted (SR with PAC's, NS T abnormality)
Radiology: Report Reviewed by me (CXR: Increased reticulonodular markings within the lower lungs, compatible with interstitial fibrosis. Cardiomegaly with no evidence for pulmonary edema or pleural effusion. Hiatal hernia/partially intrathoracic
stomach.)
Medical Tests (Nuc Med, Echo etc): Report Reviewed by me (Echo 08/04/23: EF 50-55%. Mid to basal inferolateral and basal inferior wall hypokinesis. Moderate to severe aortic stenosis; peak/mean gradients are 42/27 mmHg, thec alculated ALAINA is 0.9
cm2. Dilated aortic root and ascending aorta (SOV 4.2 cm, Asc Ao 4.5 cm))
Labs: Labs Reviewed by me
[2024-01-02] MEDS: NSS (PRESERVATIVE FREE) 10 ML IV ×2 (10:22→22:20)
[2024-01-02] MEDS: ZESTRIL 30 MG PO (10:22)
[2024-01-02] MEDS: CRESTOR 40 MG PO (10:22)
[2024-01-02] MEDS: ASPIR LOW (ENTERIC COATED) 81 MG PO (10:23)
[2024-01-02] MEDS: CARDIZEM 30 MG PO ×2 (10:23→16:59)
[2024-01-02] MEDS: PROSCAR 5 MG PO (10:23)
--- NOTE | 2024-01-02 11:07 | CON.GI ---
Addendum entered and electronically signed by Rolando Loo MD 01/02/24 15:46:
I saw and examined the patient.
The POLICE INSPECTOR or PA's note was reviewed and I agree with the note.
Comment:
Pt is a 83 y/o with hx of afib on eliquis, moderate , CAD with recent diverticulr bleed at [place] with episode of black stool. No abd pain. known diverticular disease by previous colonoscopy.
abd: soft, nontender
black heme pos stool
impression:
divertcular bleed
melena
plan:
may be all one process (residual LGIB) but would do EGD to r/u PUD or other sources
cardiology cleared procedure via TT
EGD on thursday
follow hgb
Original Note:
Consultation
-
Date/Time Consultation Requested: 01/02/24 0956
Date/Time Consultation Performed: 01/02/24 1115
Requesting Provider: Dr Rodriguez
Performing Provider: Dr Loo / Sheela Lara PA-C
Reason for Consultation: anemia / GI bleeding
Medical History
Chief Complaint / HPI
Chief Complaint: weakness, anemia
History of Present Illness:
This is an 83 year old male with a past medical history of atrial fibrillation (on Eliquis, currently held), CAD s/p CABG 2010, moderate-severe aortic stenosis, HTN, BPH, hyperlipidemia, ischemic cardiomyopathy, diverticulosis and history of likely
diverticular bleeding in 2013, who was recently hospitalized at [facility] following an episode of hematochezia 4 days ago. He states he had a large amount of painless, BRBPR on Thursday evening 12/29/23 with lightheadedness and was taken to [facility] via
EMS after he called 911. Bleeding resolved and he states his hemoglobin was stable and he did not require transfusion while admitted at [facility]. He was discharged home yesterday, 01/01/24, but felt increasing weak with some lightheadedness and dyspnea
on exertion so came to ER (he states his doctors are here at [place], so did not return to [facility]). He reports seeing dark stools but has not had any further rectal bleeding. No abdominal pain, nausea, vomiting, diarrhea or constipation. ER
labs showed initial Hgb of 8.6 (baseline in the 13s), with normal WBC count and platelets, normal BUN and creatinine. He received 1 unit PRBCs with repeat hemoglobin 9.4 today.
He did have a similar episode of rectal bleeding in 2013, admitted here at and underwent both endoscopy and colonoscopy. EGD showed a medium sized duodenal diverticulum, small hiatal hernia and mild gastritis but was otherwise unremarkable.
Colonoscopy did show diverticulosis throughout (noted in the sigmoid, descending, transverse and ascending colon, and as well as the cecum) with red blood seen throughout. He denies a family history of colon cancer or any other GI malignancies. No
family history of IBD. His last dose of Eliquis was Thursday. He denies any NSAID use. ER workup did show elevated troponin, and Cardiology has been consulted.
Past Medical History
Past Medical History: Other (atrial fibrillation (on Eliquis, currently held), CAD s/p CABG 2010, moderate-severe aortic stenosis, HTN, BPH, hyperlipidemia, ischemic cardiomyopathy, diverticulosis)
Past Surgical History: Other (as above)
Social History
Tobacco: Other (cigars)
Alcohol: None
Drug: None
Living: Alone
Employment: Retired
Family History
Family History: Other (no family history of GI malignancies or IBD)
Allergies / Home Medications
Allergy/AdvReac Type Severity Reaction Status Date / Time
No Known Allergies Allergy Verified 01/01/24 21:55
�Medication �Instructions �Recorded
multivitamin with folic acid 400 1 tab PO QPM Supplement 07/01/17
mcg tablet (Tab-A-Juan)
rosuvastatin 40 mg tablet (Crestor) 40 mg PO DAILY High cholesterol 07/01/17
vitamin E (dl, acetate) 45 mg (100 100 units PO QPM Supplement 07/01/17
unit) capsule
finasteride 5 mg tablet 5 mg PO DAILY prostate issues 04/11/21
lisinopril 30 mg tablet (Zestril) 30 mg PO DAILY Blood pressure 04/11/21
tramadol 50 mg tablet 50 mg PO Q6HPRN PRN moderate pain 04/11/21
tamsulosin 0.4 mg capsule 0.4 mg PO QPM Urinary issue 04/12/21
diltiazem HCl 30 mg tablet 30 mg PO TID Arrhythmia 07/10/22
aspirin 81 mg tablet,delayed 81 mg PO DAILY Blood Clot 11/19/23
release Prevention/Tx
Review of Systems
-
History Source: Patient
All other systems: A 12 pt ROS was Negative except as stated above in HPI
Vital Signs
Temp Pulse Resp BP Pulse Ox
97.7 F 72 18 155/79 98
01/02/24 09:30 01/02/24 09:30 01/02/24 09:30 01/02/24 09:30 01/02/24 05:52
Physical Exam
Exam
General: Well Developed, Well Nourished and No Apparent Distress
Respiratory: Clear
Cardiac: Regular Rhythm
GI: Soft, Non Tender, Non Distended and Normal Bowel Sounds
Rectal: Brown and Hem Positive
Skin: Warm and Dry
Neuro: AO x 3
Psych: Calm
Results
WBC 5.5 10^3/uL (4.8-10.8) 01/02/24 06:42
Hgb 8.9 g/dL (13.0-18.0) L 01/02/24 06:42
Hct 26.0 % (39.0-52.0) L 01/02/24 06:42
MCV 92.2 fL (80.0-94.0) 01/02/24 06:42
Plt Count 156 10^3/uL (130-400) 01/02/24 06:42
Absolute Neuts (auto) 5.7 10^3/uL (1.4-6.5) 01/01/24 22:04
APTT 32.9 Sec (23.4-35.0) 01/01/24 22:04
Sodium 139 mmol/L (135-145) 01/02/24 00:17
Potassium 4.0 mmol/L (3.5-5.1) 01/02/24 00:17
Chloride 106 mmol/L (98-107) 01/02/24 00:17
Carbon Dioxide 24 mmol/L (22-30) 01/02/24 00:17
BUN 20 mg/dl (9-20) 01/02/24 00:17
Creatinine 1.0 mg/dL (0.7-1.3) 01/02/24 00:17
Calcium 8.8 mg/dl (8.4-10.2) 01/02/24 00:17
Total Bilirubin 0.4 mg/dl (0.2-1.3) 01/02/24 00:17
AST 47 U/L (17-59) 01/02/24 00:17
ALT 21 U/L (0-50) 01/02/24 00:17
Alkaline Phosphatase 43 U/L (38-126) 01/02/24 00:17
Diagnostic Image Results:
Prior GI Procedures:
09/20/2013 EGD: Dr. Ireland, - Normal esophagus.
- Hiatus hernia.
- Mild antral gastritis. Biopsied.
- Normal examined duodenum. Biopsied.
- Duodenal diverticulum.
09/22/2023 colonoscopy: Dr. Ulloa, Diverticulosis in the sigmoid colon, in the descending
colon, in the transverse colon, in the ascending colon
and in the cecum.
- Blood in the rectum and in the cecum.
Assessment / Plan
-
This is an 83 year old male with a past medical history of atrial fibrillation (on Eliquis, currently held), CAD s/p CABG 2010, moderate-severe aortic stenosis, HTN, BPH, hyperlipidemia, ischemic cardiomyopathy, diverticulosis and history of likely
diverticular bleeding in 2013, who was recently hospitalized at [facility] following an episode of hematochezia 4 days ago. He states he had a large amount of painless, BRBPR on Thursday evening 12/29/23 with lightheadedness and was taken to [facility] via
EMS after he called 911. Bleeding resolved and he states his hemoglobin was stable and he did not require transfusion while admitted at [facility]. He was discharged home yesterday, 01/01/24, but felt increasing weak with some lightheadedness and dyspnea
on exertion so came to ER (he states his doctors are here at [place], so did not return to [facility]). He reports seeing dark stools but has not had any further rectal bleeding. No abdominal pain, nausea, vomiting, heartburn, reflux, diarrhea
or constipation. ER labs showed initial Hgb of 8.6 (baseline in the 13s), with normal WBC count and platelets, normal BUN and creatinine. He received 1 unit PRBCs with repeat hemoglobin 9.4 today.
He did have a similar episode of rectal bleeding in 2013, admitted here at and underwent both endoscopy and colonoscopy. EGD showed a medium sized duodenal diverticulum, small hiatal hernia and mild gastritis but was otherwise unremarkable.
Colonoscopy did show diverticulosis throughout (noted in the sigmoid, descending, transverse and ascending colon, and as well as the cecum) with red blood seen throughout. He denies a family history of colon cancer or any other GI malignancies. No
family history of IBD. His last dose of Eliquis was Thursday AM. He denies any NSAID use. ER workup did show elevated troponin, and Cardiology has been consulted.
IMPRESSION / PLAN:
Symptomatic Anemia with recent diverticular bleeding and prior h/o diverticular bleed (2013)
- initial Hgb on admission 8.6, s/p transfusion x1
- continue to trend Hgb
- transfuse if falls below 7
- continue PPI
- Eliquis currently held, last dose 12/29/23 in the AM
- will plan tentatively for endoscopy on Thursday pending cardiac evaluation/clearance
Other medical problems managed as per hospitalist and Cardiology.
-
-
Thank you for consultation and allowing me to participate in the patient's care. Please call the electronic systems technician GI physician during the after hours with any questions or concerns.
[2024-01-02 11:25] LABS: Hematocrit 26.7 % (39.0-52.0); Hemoglobin 9.4 g/dL (13.0-18.0)
--- NOTE | 2024-01-02 13:03 | CM ---
Patient seen bedside, initial assessment completed. Patient resides in a two story apartment, reports bedroom on second floor, workshop on first floor, 12 steps to enter. Patient reports his family lives across the driveway from his home. Patient
reports he has a cane that he uses when he is in the community, does not use DME in the home. Patient denies VN or SNF history. Patient PCP Irlanda Diaz, pharmacy [facility], confirms prescription coverage through his insurance. Patient denies
food, housing/utility, transportation insecurities at home. CM will watch for PT/OT evaluations, will follow for all discharge planning needs.
Plan; home no needs vs VN.
[2024-01-02 13:50] LABS: Troponin I 0.094 ng/ml
[2024-01-02] MEDS: FLOMAX 0.4 MG PO (16:59)
[2024-01-02 19:27] LABS: Troponin I 0.085 ng/ml
[2024-01-02] MEDS: FLUSH (NSS) 1 FLUSH IV (22:21)
[2024-01-02] MEDS: CARDIZEM PO (22:23)
[2024-01-03] VITALS (8 sets, daily range): BP systolic 107–149; BP diastolic 60–85; PULSE 70–102; BMI 26.4
--- NOTE | 2024-01-03 08:13 | W.PN.CD ---
Today's Communication / Plan
-
-Endoscopy planned for tomorrow.
-Echo in a.m.
Impression / Plan
-
Acute anemia, GIB:
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
-this is severe in that he was symptomatic, has required PRBC's, and has abnormal troponin with this. He is feeling much better s/p transfusion.
-Responded well to transfusion. Hgb is 9.4 last night. Awaiting repeat hgb this AM.
-GI is consulted
-on PPI
-Eliquis held
Abnormal troponin:
-acute non-ischemic myocardial injury in setting of anemia (non-NH troponin leak due to demand)
-no CP
-0.112- peaked and now at 0.085 with transfusion.
Moderate to severe :
-continue to assess as OP with Dr. Guerrero
-monitor volume status, which currently appears stable
PAF:
-stable in SR
-Eliquis held as above ([id number] score at least 4 for age, hypertension, CAD)
-continue diltiazem and follow telemetry
HTN:
-relatively stable
-continue ACEI and CCB and monitoring
CAD s/p CABG:
-stable without CP
-ASA continued
Physical Exam
Vital Signs/Labs
Vital Signs
Temp Pulse Resp BP Pulse Ox
97.3 F 70 18 139/74 97
01/03/24 03:00 01/03/24 03:00 01/03/24 03:00 01/03/24 03:00 01/03/24 03:00
01/02/24 01/03/24 01/04/24
06:59 06:59 06:59
Actual Weight 88.989 kg 88.224 kg
APTT 32.9 Sec (23.4-35.0) 01/01/24 22:04
01/01/24
22:04
Yye-P-Ijzhjmluxyp Pept 1660
LAB Results
01/01/24 01/02/24 01/02/24
22:04 06:42 12:07
Troponin I 0.107 H* 0.112 H* Cancelled
01/02/24 01/02/24
13:13 18:54
Troponin I 0.094 H* 0.085 H*
Physical Exam
Constitutional: No acute distress and Comfortable
EENT: Anicteric and Moist mucous membranes
Cardiovascular: Rhythm & rate is regular, Pedal edema is absent, JVD pressure is normal and Systolic murmur present
Respiratory: Respiratory effort normal, Lungs clear to auscul., Wheeze Absent and Crackles Absent
GI: Soft, Distention absent and Non tender
Neuro/Psych: Alert, Oriented and AO x 3
Data Reviewed
-
Date of Service: January 03, 2024
Medical Decision Making: Reviewed Test Results, Independent Historian Assessment, Test Interpretation and Review of Case with other Provider
EKG: Tracing Personally Visualized and interpreted
Echo: Report Reviewed by me
Labs: Labs Reviewed by me
Old Records: Reviewed
[2024-01-03 08:28] LABS: Blood Urea Nitrogen 10 mg/dl (9-20); Calcium 8.5 mg/dl (8.4-10.2); Carbon Dioxide 25 mmol/L (22-30); Chloride 104 mmol/L (98-107); Estimated Creatinine Clearance 61 ml/min; Glucose 93 mg/dl (70-99); Sodium 137 mmol/L (135-145); eGFR > 60.00
[2024-01-03 08:31] LABS: Hematocrit 26.5 % (39.0-52.0); Hemoglobin 9.3 g/dL (13.0-18.0); Mean Corp Hgb Conc. 35.1 g/dL (33.0-37.0); Mean Corpuscular Hgb 31.1 pg (27.0-31.0); Mean Corpuscular Volume 88.6 fL (80.0-94.0); Mean Platelet Volume 10.8 fL (7.4-10.4); Platelet Count 174 10^3/uL (130-400); Red Blood Cell Count 2.99 10^6/uL (4.70-6.10); Red Cell Dist. Width 14.6 % (11.5-14.5); White Blood Cell Count 5.3 10^3/uL (4.8-10.8)
[2024-01-03] MEDS: PROSCAR 5 MG PO (09:14)
[2024-01-03] MEDS: ZESTRIL 30 MG PO (09:14)
[2024-01-03] MEDS: PROTONIX IV 40 MG IV ×2 (09:15→21:02)
[2024-01-03] MEDS: CRESTOR 40 MG PO (09:15)
[2024-01-03] MEDS: CARDIZEM 30 MG PO ×3 (09:15→21:08)
[2024-01-03] MEDS: NSS (PRESERVATIVE FREE) 10 ML IV ×2 (09:15→21:02)
[2024-01-03] MEDS: ASPIR LOW (ENTERIC COATED) 81 MG PO (09:15)
--- NOTE | 2024-01-03 09:40 | W.PN.GI.CBS2 ---
Today's Communication / Plan
-
egd tomorrow
Assessment / Plan
-
This is an 83 year old male with a past medical history of atrial fibrillation (on Eliquis, currently held), CAD s/p CABG 2010, moderate-severe aortic stenosis, HTN, BPH, hyperlipidemia, ischemic cardiomyopathy, diverticulosis and history of likely
diverticular bleeding in 2013, who was recently hospitalized at [facility] following an episode of hematochezia 4 days ago. He states he had a large amount of painless, BRBPR on Thursday evening 12/29/23 with lightheadedness and was taken to [facility] via
EMS after he called 911. Bleeding resolved and he states his hemoglobin was stable and he did not require transfusion while admitted at [facility]. He was discharged home yesterday, 01/01/24, but felt increasing weak with some lightheadedness and dyspnea
on exertion so came to ER (he states his doctors are here at [place], so did not return to [facility]). He reports seeing dark stools but has not had any further rectal bleeding. No abdominal pain, nausea, vomiting, heartburn, reflux, diarrhea
or constipation. ER labs showed initial Hgb of 8.6 (baseline in the 13s), with normal WBC count and platelets, normal BUN and creatinine. He received 1 unit PRBCs with repeat hemoglobin 9.4 today.
He did have a similar episode of rectal bleeding in 2013, admitted here at and underwent both endoscopy and colonoscopy. EGD showed a medium sized duodenal diverticulum, small hiatal hernia and mild gastritis but was otherwise unremarkable.
Colonoscopy did show diverticulosis throughout (noted in the sigmoid, descending, transverse and ascending colon, and as well as the cecum) with red blood seen throughout. He denies a family history of colon cancer or any other GI malignancies. No
family history of IBD. His last dose of Eliquis was Thursday AM. He denies any NSAID use. ER workup did show elevated troponin, and Cardiology has been consulted.
IMPRESSION / PLAN:
Symptomatic Anemia with recent diverticular bleeding and prior h/o diverticular bleed (2013)
-Hgb stable
- EGD in am tomorrow d/w cardiology and cleared to go for EGD. I explained to the patient that the EGD is to rule out peptic ulcer disease as a cause for melena. I do think however that it may be related to residual blood from his diverticular
bleed but we do want to be sure.
-NPO after midnigh
Other medical problems managed as per hospitalist and Cardiology.
Subjective
Subjective
Date of Service: January 03, 2024
No abdominal pain or bleeding
Objective
Data Reviewed
Laboratory Data:
Laboratory Results
01/03/24 07:46
01/03/24 07:46
Laboratory Results
APTT 32.9 Sec (23.4-35.0) 01/01/24 22:04
Total Bilirubin 0.4 mg/dl (0.2-1.3) 01/02/24 00:17
AST 47 U/L (17-59) 01/02/24 00:17
ALT 21 U/L (0-50) 01/02/24 00:17
Alkaline Phosphatase 43 U/L (38-126) 01/02/24 00:17
Vital Signs and I&O:
Vital Signs
Temp Pulse Resp BP Pulse Ox
97.9 F 70 16 146/76 97
01/03/24 07:30 01/03/24 07:30 01/03/24 07:30 01/03/24 07:30 01/03/24 07:30
I&O
01/02/24 01/03/24 01/04/24
06:59 06:59 06:59
Intake Total 250 / 250 1769
Balance 250 / 250 1769
Physical Exam
Physical Exam
GI: Soft, Non Distended and Non Tender
--- NOTE | 2024-01-03 10:07 | W.PN.HOSP.TC ---
Today's Communication/Plan
-
Continue with IV PPI twice daily
Trend daily CBC
Plan for EGD tomorrow, n.p.o. after midnight
Assessment / Plan
Assessment / Plan
#Symptomatic blood loss anemia -- DDx include UGIB, diverticular bleed, AVM (Heyde syndrome with severe )
#Recent diverticular bleed -- Hospitalized at [facility], no colonoscopy performed per patient history
#Exertional dyspnea
-Hemoglobin baseline near 13, was normal about a month ago prior to development of bleeding symptoms
-Hospitalized at [facility] recently for suspected diverticular bleed, hemoglobin on discharge that was 9.4
-Home medications include aspirin and Eliquis; Eliquis has been held since admission at [facility]
-GI consulted and planning for EGD tomorrow, potential colonoscopy after if negative
-Hemoglobin has stabilized at 9.3 on 2 lab draws following 2 units of PRBC
Plan
-Trend daily CBC, transfuse for hemoglobin <7 or new symptoms
-Continue with IV PPI twice daily
-Continue to hold Eliquis
-N.p.o. after midnight for EGD tomorrow
#Elevated troponin
-Nonischemic myocardial infarction in the context of severe blood loss anemia
-No chest pain or acute ECG changes, troponin trend was flat and not consistent with ACS
#Moderate to Severe
-TTE in July showed ALAINA 0.9 cm�, peak gradients 42 mmHg, mean gradient 27 mm
-He currently seems euvolemic, no signs of volume overload after receiving PRBCs
-Does increase his risk for hide syndrome, colon and small bowel AVMs
-Cardiology consulted on admission, scheduled for repeat TTE soon in OP setting
#HFrecEF
#ASCVD/CAD/ischemic CM
#S/P CABG x4
-TTE in July showed LVEF 50 to 55%, inferolateral and basilar wall hypokinesis
-GDMT: MALU inhibitor, aspirin, high intensity statin; no DAPT as on Eliquis for AF/AFL
-Currently on diltiazem though no contraindication as LVEF is preserved
-Not currently on any standing loop diuretic therapy; appears euvolemic
-Would consider SGLT2i and/or MRA as an outpatient
#Paroxysmal AF/AFL
-Home medications include diltiazem for rate control with holding parameters; was on Eliquis for anticoagulation
-No known history of electrophysiological interventions; Eliquis has been held since recent admission at [facility] for anemia
-Currently in normal sinus rhythm without significant ectopy on exam
-Will continue to hold Eliquis as above
#Benign Hypertension
-Home antihypertensive regimen includes lisinopril; diltiazem not first-line agent for BP, minimal effect
-Blood pressures currently well-controlled, no indication to escalate therapy
#BPH
-Home medications include Flomax and finasteride
-No signs of urinary obstruction at this time
DVT Prophylaxis: SCDs
Diet: Clear liquid diet
Code Status: Full
Anticipated Discharge: 24 - 48 hours
Subjective/Interval History
-
Date of Service: January 03, 2024
Seen and examined at the bedside. No acute events reported overnight.
Remains hemodynamically stable, on room air, afebrile. Hemoglobin stabilized at 9.3 x 2 following PRBC transfusions. Denies any active bleeding symptoms overnight. Plan for EGD tomorrow
He denies any chest pain, shortness of breath, fevers or chills, nausea, vomiting, diarrhea, urinary issues, paresthesias or weakness.
Objective Data
-
Labs:
Laboratory Results
01/03/24
07:46
WBC 5.3
Hgb 9.3 L
Hct 26.5 L
Plt Count 174
Sodium 137
Potassium 4.0
Chloride 104
Carbon Dioxide 25
BUN 10
Creatinine 1.0
Glucose 93
Calcium 8.5
Vital Signs:
Vital Signs
Temp Pulse Resp BP Pulse Ox
97.9 F 70 16 146/76 97
01/03/24 07:30 01/03/24 07:30 01/03/24 07:30 01/03/24 07:30 01/03/24 07:30
I&O
01/02/24 01/03/24 01/04/24
06:59 06:59 06:59
Intake Total 250 / 250 1769
Balance 250 / 250 1769
Review of Systems
-
History Source: Patient
All other systems: Reviewed and negative
Physical Exam
-
General: Well Nourished, No Apparent Distress and Comfortable
HEENT: Normocephalic, Atraumatic and Moist Mucous Membranes
Respiratory: Clear to Auscultation and Non Labored Respirations; Negative Wheezes, Rales or Rhonchi
Cardiac: Regular Rhythm, S1/S2 (Soft S2), Murmur (Late peaking ZACKERY across precordium) and Other (Slightly delayed carotid upstroke); Negative Rub, JVD or Gallop
GI: Soft, Nontender, Nondistended and Normal Bowel Sounds
Musculoskeletal: No Clubbing, No Cyanosis and No Edema
Skin: Warm, Dry and Normal Turgor; Negative Rash
Neuro: AO x 3, Nonfocal/Grossly Intact and Central Nerve's Intact; Negative Tremors
Data Reviewed
-
Labs: Labs Reviewed by me and Discussed with Patient
[2024-01-03] MEDS: FLOMAX 0.4 MG PO (17:12)
[2024-01-04] VITALS (11 sets, daily range): BP systolic 21–192; BP diastolic 61–114; PULSE 98–135; O2SAT 98; BMI 26.2
--- NOTE | 2024-01-04 04:16 | PTCARENOTE ---
pt had a 15 beat run of vtach. vss. pt has no c/o pain. informed david Baugh.
pt rhythm return to SR/SB. HR40-70's w/ pause throughout the night. DAVID Baugh ordered labs for am.
[2024-01-04 05:58] LABS: % Basophils 0.6 % (0-2); % Immature Granulocytes 0.2 % (0-0.5); % Lymphocytes 20.1 % (20.5-51.1); % Monocytes 11.4 % (1.7-9.3); % Neutrophils 64.7 % (42.2-75.2); Absolute Eosinophils 0.2 10^3/uL (0-0.7); Absolute Lymphocytes 1.1 10^3/uL (1.2-3.4); Absolute Monocytes 0.6 10^3/uL (0.1-0.6); Absolute Neutrophils 3.5 10^3/uL (1.4-6.5); Hematocrit 27.6 % (39.0-52.0); Hemoglobin 9.8 g/dL (13.0-18.0); Mean Corp Hgb Conc. 35.5 g/dL (33.0-37.0); Mean Corpuscular Hgb 31.3 pg (27.0-31.0); Mean Corpuscular Volume 88.2 fL (80.0-94.0); Mean Platelet Volume 10.2 fL (7.4-10.4); Nucleated Red Blood Cells % 0 % (-); Platelet Count 179 10^3/uL (130-400); Red Blood Cell Count 3.13 10^6/uL (4.70-6.10); Red Cell Dist. Width 14.8 % (11.5-14.5); White Blood Cell Count 5.4 10^3/uL (4.8-10.8)
--- NOTE | 2024-01-04 06:08 | PTCARENOTE ---
pt HR=20 w/ a 4.1 sec pause. informed CLE[employer] SIG[employer] Amauir- ekg completed and labs drawn. jn=188/88 p=70. pt states he feels fine.
[2024-01-04 06:26] LABS: Blood Urea Nitrogen 13 mg/dl (9-20); Calcium 8.5 mg/dl (8.4-10.2); Carbon Dioxide 25 mmol/L (22-30); Chloride 106 mmol/L (98-107); Estimated Creatinine Clearance 56 ml/min; Glucose 93 mg/dl (70-99); Magnesium 1.8 mg/dl (1.6-2.3); Potassium 4.2 mmol/L (3.5-5.1); Sodium 138 mmol/L (135-145); eGFR > 60.00
--- NOTE | 2024-01-04 06:37 | W.PN.UPDATE ---
Addendum entered and electronically signed by JCARLOS Ramirez 01/04/24 07:06:
turner and former automatic made aware
Original Note:
Update Note
Progress Note Update
Around [address] VENDOR, Patient had a pause of 4.11, HR dropped to 20, and patient is stable with the BP of 136/88 HR 70 awake and asymptomatic. EKG done, Diltiazem on hold. Notified Asphalt Paving Supervisor, advised to keep NPO. Zoll pads in place. labs
awaiting
--- NOTE | 2024-01-04 08:43 | W.PN.HOSP.TC ---
Addendum entered and electronically signed by Emigdio Mirza MD 01/04/24 18:46:
I saw and examined the patient earlier this afternoon. He denied any new symptoms.
General: Well Nourished, No Apparent Distress and Comfortable
HEENT: Normocephalic
Respiratory: Clear to Auscultation Bilaterally
Cardiac: Regular Rhythm, S1/S2 (Soft S2), Murmur (Late peaking ZACKERY across precordium) and Other (Slightly delayed carotid upstroke)
GI: Soft, Nontender, Nondistended and Normal Bowel Sounds
Musculoskeletal: No Cyanosis and No Edema
Skin: Warm, Dry and Normal Turgor
Neuro: AO x 3, Nonfocal/Grossly Intact and Central Nerve's Intact
Original Note:
Today's Communication/Plan
-
EGD with no active bleeding
Recheck CBC in the morning
PT/OT
Discharge Planning
Assessment / Plan
Assessment / Plan
Physical Exam
Physical Exam was not performed as patient was in the bathroom at the time of attempted patient encounter.
Assessment/Plan
#Symptomatic blood loss anemia -- DDx include UGIB, diverticular bleed, AVM (Heyde syndrome with severe )
#Recent diverticular bleed -- Hospitalized at [facility], no colonoscopy performed per patient history
#Exertional dyspnea
-Hemoglobin baseline near 13, was normal about a month ago prior to development of bleeding symptoms
-Hospitalized at [facility] recently for suspected diverticular bleed, hemoglobin on discharge that was 9.4
-Home medications include Aspirin and Eliquis; Eliquis has been held since admission at [facility]
-GI consulted and EGD performed -- with no source of bleeding on EGD, but large hiatal hernia with paraesophageal component as well as Bile Gastritis
-Hemoglobin has stabilized at 9.3 on 2 lab draws following 2 units of PRBC
Plan
-Trend daily CBC, transfuse for hemoglobin <7 or new symptoms
-Continue with IV PPI twice daily
-Continue to hold Eliquis
-Continue Cholesterol Lowering Diet
#Elevated troponin
-Nonischemic myocardial infarction in the context of severe blood loss anemia
-No chest pain or acute ECG changes, troponin trend was flat and not consistent with ACS
#Moderate to Severe
-TTE in July showed ALAINA 0.9 cm�, peak gradients 42 mmHg, mean gradient 27 mm
-He currently seems euvolemic, no signs of volume overload after receiving PRBCs
-Does increase his risk for heyde syndrome, colon and small bowel AVMs
-Cardiology consulted on admission, scheduled for repeat TTE soon in OP setting
#HFrecEF
#ASCVD/CAD/ischemic CM
#S/P CABG x4
-TTE in July showed LVEF 50 to 55%, inferolateral and basilar wall hypokinesis
-GDMT: MALU inhibitor, aspirin, high intensity statin; no DAPT as on Eliquis for AF/AFL
-Currently on diltiazem though no contraindication as LVEF is preserved
-Not currently on any standing loop diuretic therapy; appears euvolemic
-Would consider SGLT2i and/or MRA as an outpatient
#Paroxysmal AF/AFL
-Home medications include diltiazem for rate control with holding parameters; was on Eliquis for anticoagulation
-No known history of electrophysiological interventions; Eliquis has been held since recent admission at [facility] for anemia
-Currently in normal sinus rhythm without significant ectopy on exam
-Will continue to hold Eliquis as above
#Pause of 4.11, HR dropped to 20 -- on 01/04/24 morning
#Asymptomatic sinus node dysfunction
-Appreciate cardiology, for now, no pacemaker needed: once patient is back on Eliquis I would not manage with Eliquis + ASA
#Benign Hypertension
-Home antihypertensive regimen includes lisinopril; diltiazem not first-line agent for BP, minimal effect
-Blood pressures currently well-controlled, no indication to escalate therapy
#BPH
-Home medications include Flomax and finasteride
-No signs of urinary obstruction at this time
DVT Prophylaxis: SCDs
Diet: Cholesterol Lowering
Code Status: Full Code
Anticipated Discharge: 24 - 48 hours
Subjective/Interval History
-
Date of Service: January 04, 2024
Patient was in the bathroom at the time of attempted patient encounter. He denied any symptoms.
Objective Data
-
Labs:
Laboratory Results
01/04/24
05:43
WBC 5.4
Hgb 9.8 L
Hct 27.6 L
Plt Count 179
Sodium 138
Potassium 4.2
Chloride 106
Carbon Dioxide 25
BUN 13
Creatinine 1.1
Glucose 93
Calcium 8.5
Vital Signs:
Vital Signs
Temp Pulse Resp BP Pulse Ox
97.8 F 71 18 157/83 97
01/04/24 07:00 01/04/24 07:00 01/04/24 07:00 01/04/24 07:00 01/04/24 07:00
I&O
01/03/24 01/04/24 01/05/24
06:59 06:59 06:59
Intake Total 1770 / 1770 680 / 680
Balance 1770 / 1770 680 / 680
[2024-01-04] MEDS: ASPIR LOW (ENTERIC COATED) 81 MG PO (08:53)
[2024-01-04] MEDS: PROTONIX IV 40 MG IV (08:53)
[2024-01-04] MEDS: PROSCAR 5 MG PO (08:53)
[2024-01-04] MEDS: ZESTRIL 30 MG PO (08:53)
[2024-01-04] MEDS: CRESTOR 40 MG PO (08:53)
[2024-01-04] MEDS: NSS (PRESERVATIVE FREE) 10 ML IV (08:54)
--- NOTE | 2024-01-04 09:34 | W.PN.CD ---
Today's Communication / Plan
-
once back on I would not manage with Eliquis + ASA
No pacemaker at this time
OK for needed GI procedure
-
-
-
55 min spent caring for pt today. Reviewed tele, spoke nurse, communicated with GI, reviewed extensive records, prepared this document.
Impression / Plan
-
Asymptomatic sinus node dysfunction
- 2-4 sec sinus pauses health care facilities inspector hours today. Pt either asleep or awake and asymptomatic
- Otherwise HR during day are fine
- See my consult about his bradycardia dated 11/20/2023
- If we see more AFlutter with RVR we may need to place a pacemaker but for now just observe
Hx of atrial flutter (06/2023), known prior AFib
- Eliquis on hold
- In sinus
Abnormal troponin from acute non-ischemic myocardial injury in setting of anemia
Acute blood loss anemia
- GI blood loss
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
- By report he was at [facility] last week with diverticular bleed
- GI involved
Moderate to severe :
-continue to assess as OP with Dr. Guerrero
-monitor volume status, which currently appears stable
HTN, stable
CAD/prior CABG, on ASA => once back on I would not manage with Eliquis + ASA
Subjective:
No syncope/presyncope
Physical Exam
Vital Signs/Labs
Vital Signs
Temp Pulse Resp BP Pulse Ox
97.8 F 71 18 157/83 97
01/04/24 07:00 01/04/24 07:00 01/04/24 07:00 01/04/24 07:00 01/04/24 07:00
01/03/24 01/04/24 01/05/24
06:59 06:59 06:59
Actual Weight 88.224 kg 87.6 kg
01/04/24 05:43
01/04/24 05:43
APTT 32.9 Sec (23.4-35.0) 01/01/24 22:04
Magnesium 1.8 mg/dl (1.6-2.3) 01/04/24 05:43
01/01/24
22:04
Gmv-U-Plancuiycmi Pept 1660
LAB Results
01/01/24 01/02/24 01/02/24
22:04 06:42 12:07
Troponin I 0.107 H* 0.112 H* Cancelled
01/02/24 01/02/24
13:13 18:54
Troponin I 0.094 H* 0.085 H*
Physical Exam
Constitutional: No acute distress
Cardiovascular: Rhythm & rate is regular, Pedal edema is absent and Systolic murmur present
Respiratory: Respiratory effort normal and Lungs clear to auscul.
GI: Soft and Distention absent
Neuro/Psych: AO x 3
Data Reviewed
-
Date of Service: January 04, 2024
--- NOTE | 2024-01-04 11:42 | W.PN.UPDATE ---
Update Note
Progress Note Update
EGD with no bleeding source
Large hiatal hernia with paraesophageal component
he does have some upper gi symptoms that are likely related. can f/u with surgery electively
will sign off call with questions
--- NOTE | 2024-01-04 17:12 | CM ---
Patient seen at bedside.
CM discussed PT recommendation for home health.
Pt options given & declines.
States family friend will transport home when discharged.
PLAN: Declines home health recommendation. CM to follow.
[2024-01-04] MEDS: FLOMAX 0.4 MG PO (17:20)
--- NOTE | 2024-01-04 18:57 | W.DCSUMMARY ---
Discharge Summary
Discharge Data
Date of Admission: 01/02/24
Date of Discharge: 01/04/24
Total time spent discharging patient (in min): 43
-
Pending Results: Yes
Additional Pending Results:
Biopsy results
Hospital Course
83 y/o male with past medical history significant for ASCVD, paroxysmal A-Fib / Flutter and moderate - severe , history of coronary disease status post CABG, moderate to severe aortic stenosis, hypertension, ischemic cardiomyopathy with LVEF
fluctuating between 40 to 50%, history of SVT/A. tach/atrial flutter, pulmonary fibrosis, who presented to the ED complaining of shortness of breath. He was found to have symptomatic blood loss anemia and received 2 units of red blood cells.
Patient was placed on twice daily intravenous Protonix. Eliquis had been on hold since patient's recent hospitalization at [place].
Patient was suspected to have a diverticular bleed. Patient had pause on tele for which cardiology recommended observation and holding Diltiazem on discharge. Case was discussed with gastroenterology who recommended holding Eliquis for 48 hours and
then resuming it. Upper endoscopy showed no source of bleeding, and there was a large hiatal hernia with paraesophageal component, as well as bile gastritis, and patient could follow-up with surgery electively.
Discharge Plan
-
Patient Disposition: Home (Routine Discharge)
Discharge Diagnosis/Procedures: #Symptomatic blood loss anemia
#Bile Gastritis on endoscopy
#Large hiatal hernia with possible para-esophageal component
#Recent diverticular bleed -- Hospitalized at [facility], no colonoscopy performed per patient history
#Exertional dyspnea
#Elevated troponin
#Moderate to Severe
#HFrecEF
#ASCVD/CAD/ischemic CM
#S/P CABG x4
#Paroxysmal AF/AFL
#Pause of 4.11, HR dropped to 20 -- on 01/04/24 morning
#Asymptomatic sinus node dysfunction
#Benign Hypertension
#BPH
Condition: Fair
Diet: As tolerated, Low Fat and Low Cholesterol
Activity: As tolerated
Driving Restrictions: No driving
Blood Work: Recheck CBC, BMP and Magnesium with your outpatient doctor's office in 2 to 3 days.
Activity Restrictions/Additional Instructions:
Hospitalist discussed with Dr. Loo ([facility] dry mill worker) who recommended that you resume your Eliquis by January 06, 2024.
Please make sure you follow-up with your PCP in 2 to 3 days.
Referrals:
Irlanda Diaz MD [Family Provider] - in less than 1 week
Morris Guerrero MD [Active] - in less than 1 week
Rosales Alanis MD [Active] - in less than 1 week (Hospital follow-up)
Additional Discharge Medication Instructions: You can resume your Eliquis by 01/06/24 -- make sure you also speak with your outpatient doctors about this.
Pantoprazole is a new medication given your hiatal hernia.
Diltiazem is on hold due to pauses in your heart rhythm (Dr. Yung has been notified that we are holding Cardizem on discharge).
Prescriptions:
New
pantoprazole 40 mg Tablet,Delayed Release (Dr/Ec)
40 mg PO BID Qty: 60 1RF
Continued
rosuvastatin [Crestor] 40 MG tablet
40 mg PO DAILY
vitamin E (dl, acetate) 100 UNITS capsule
100 units PO QPM
multivitamin with folic acid [Tab-A-Juna] 1 TABLET tablet
1 tab PO QPM
tramadol 50 MG tablet
50 mg PO Q6HPRN PRN (Reason: moderate pain)
lisinopril [Zestril] 30 MG tablet
30 mg PO DAILY
finasteride 5 MG tablet
5 mg PO DAILY
tamsulosin 0.4 MG capsule
0.4 mg PO QPM
aspirin 81 mg Tablet,Delayed Release (Dr/Ec)
81 mg PO DAILY
Held
diltiazem HCl 30 mg Tablet
30 mg PO TID
Hold Instructions: Resume on 01/13/24. Discuss this LISSETTE in [address] Morris Guerrero's office regarding whether or not you can resume this medication.
Discharge Orders:
Discharge Patient (As Directed); Ordered 01/04/24
Ordered By: Emigdio Mirza
Discharge Date and Time
Discharge Date/Time: 01/04/24 19:31
Print Language: YAKUT
[2024-01-04] MEDS: PROTONIX 40 MG PO (19:04)
--- NOTE | 2024-01-04 19:22 | PTCARENOTE ---
reviewed meds w/ pt. d/c ordered reviewed. pt states he understands. friend waiting in car. pt taken to discharge area via w/v.
== END 2024-01-04 19:31 | disposition home or self-care (01) | DRG 811 ==
LOC: 4 WEST ACU 03:45
PROVIDERS: Internal Medicine; ADMITTING PHYSICIAN Hospitalist; ATTENDING PHYSICIAN Hospitalist; CONSULT PHYSICIAN Internal Medicine; CONSULT PHYSICIAN Internal Medicine Cardiovascular Disease; EMERGENCY PHYSICIAN Emergency Medicine; FAMILY PHYSICIAN Family Medicine
PROC: 30233N1 Transfusion of Nonautologous Red Blood Cells into Peripheral Vein, Percutaneous Approach (ICD-10-PCS; 2024-01-02)
PROC: 0DB98ZX Excision of Duodenum, Via Natural or Artificial Opening Endoscopic, Diagnostic (ICD-10-PCS; 2024-01-04)
PROC: 0DB68ZX Excision of Stomach, Via Natural or Artificial Opening Endoscopic, Diagnostic (ICD-10-PCS; 2024-01-04)
DX: D62 Acute posthemorrhagic anemia (principal); K76.7 Hepatorenal syndrome; I5A Non-ischemic myocardial injury (non-traumatic); I50.22 Chronic systolic (congestive) heart failure; I11.0 Hypertensive heart disease with heart failure; I35.0 Nonrheumatic aortic (valve) stenosis; J84.10 Pulmonary fibrosis, unspecified; K29.60 Other gastritis without bleeding; K57.30 Diverticulosis of large intestine without perforation or abscess without bleeding; K44.9 Diaphragmatic hernia without obstruction or gangrene; I25.10 Atherosclerotic heart disease of native coronary artery without angina pectoris; I25.5 Ischemic cardiomyopathy; Z95.1 Presence of aortocoronary bypass graft; I45.5 Other specified heart block; I48.0 Paroxysmal atrial fibrillation; N40.0 Benign prostatic hyperplasia without lower urinary tract symptoms; E78.00 Pure hypercholesterolemia, unspecified; F17.290 Nicotine dependence, other tobacco product, uncomplicated; R79.89 Other specified abnormal findings of blood chemistry; R06.09 Other forms of dyspnea; Z79.01 Long term (current) use of anticoagulants; Z79.82 Long term (current) use of aspirin; Z79.899 Other long term (current) drug therapy; Z87.19 Personal history of other diseases of the digestive system
CPT/HCPCS: 88305; 36430; 71046; 80048; 80053; 83540; 83550; 83735; 83880; 84484; 85014; 85018; 85025; 85027; 85730; 86850; 86900; 86901; 86920; 88342; 93005; 97116; 97162; 97166; 97530; 99285; P9016

== ENCOUNTER → 2024-01-19 10:26 | Outpatient (REF) | payer OTHER, SELFPAY | LOC: RCS 10:26 | PROVIDERS: ATTENDING PHYSICIAN Internal Medicine Cardiovascular Disease; FAMILY PHYSICIAN Family Medicine | DX: I35.0 Nonrheumatic aortic (valve) stenosis (principal); Z95.1 Presence of aortocoronary bypass graft | CPT/HCPCS: 93306 ==

== ENCOUNTER → 2024-01-29 10:04 | Outpatient (REF) | payer OTHER, SELFPAY | LOC: RCS 10:04 | PROVIDERS: ATTENDING PHYSICIAN Internal Medicine Cardiovascular Disease; FAMILY PHYSICIAN Family Medicine | DX: R42 Dizziness and giddiness (principal); R06.02 Shortness of breath; R06.09 Other forms of dyspnea; Z95.1 Presence of aortocoronary bypass graft | CPT/HCPCS: 93225; 93226 ==

== ENCOUNTER 2024-02-02 08:33 | Day surgery (SDC) | payer OTHER, SELFPAY ==
[2024-02-02] VITALS (10 sets, daily range): BP systolic 108–156; BP diastolic 76–87; BMI 29.6
--- NOTE | 2024-02-02 12:12 | ITS.CL.PACE ---
Clinical Microbiologist - Pacemaker Implant
Pacemaker Implant
Procedure Report:
Dual Chamber Pacemaker Placement:
Mr. 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
Indications: Tachy Francis syndrome
Date of the Procedure: 02/02/24
Pre-Operative Diagnosis: Tachy Francis syndrome
Post-Operative Diagnosis: Tachy Francis syndrome
Procedure Performed: DUAL CHAMBER PACEMAKER IMPLANTATION
Performing Physician:
Dave Fields MD
Assistants:
EP staff
Anesthesia:
See anethesia report
Pre-operative antibiotics:
Ancef
Detailed Description of the Procedure:
The patient was identified using hospital identification and informed consent obtained for the procedure. The risks were explained including, but not limited to: Bleeding, infection, arrhythmia, stroke, vascular/cardiac/lung puncture, surgery,
pacemaker dependency/device malfunction. All questions were answered.
The patient was brought to the electrophysiology laboratory in stable condition in fasting state. Continuous electrocardiographic and hemodynamic monitoring was initiated.
The initial rhythm was sinus.
A surgical pause and time out was performed immediately prior to the procedure with review of her medical history, recent labs, allergies and medications with site of procedure identified and consent noted in the chart. Antibiotics pre operatively
given. All team members concurred.
The procedure site was meticulously prepared with surgical scrub and allowed to dry with no pooling. Sterile draping was applied to cover the procedure site. The image intensifier was draped with sterile bag and positioned over the patient.
The left infraclavicular region was prepped and draped in the usual sterile fashion. Local anesthesia was administered subcutaneously using 1% lidocaine / Bupivacaine. The left cephalic vein cutdown was performed with an incision at the
delto-pectoral groove, and vascular sheaths were introduced for lead access. These were advanced into the right ventricle and the right atrium.
There were extreme tortuosity noted in the subclavian vein and long sheaths were needed. The cardiac chambers were rotated as well.
The right ventricular lead was secured in position with an active fixation technique at the apical septal location.
The RA lead was attached in the right atrial appendage with active fixation.
There was excellent sensing, pacing, and impedance from the leads, with no diaphragmatic stimulation at 10 V output.�Bovie cautery, antibiotics, and fluoroscopy were used.
The sheaths were withdrawn, and the thresholds remained acceptable. The leads were secured in position at the venous entry site with 2-0 Ethibond suture. A pocket was fashioned contiguous to the incision. The electrode terminals were connected to
the pulse generator, which was placed into the pocket.
The device was anchored to the underlying fascia using 2-0 Ethibond suture.
The wound was irrigated thoroughly with antibiotic solution.
The wound was closed in 3 layers using 2-0 V loc then two layers of 4-0 V loc sutures to the dermis. Steri-strips were applied externally and covered with Aquacel bandage.
Procedure End:
The procedure was tolerated well.
Estimated Blood loss:
10 cc
Specimens Removed:
No cultures and no specimens were obtained. No intraoperative pathology was identified.
Fluoro time:
0.5 min / 2.06mGy
Urine output:
None
Packs / Drains/ Tubes:
None
Instrument / Sponge Count Correct:
Yes
Complications of the Procedure:
None
Condition of Patient at Time of Transfer:
Hemodynamically stable with no neurological or vascular compromise.
Device information:�
Generator: Slidely; Model: [id number]; Serial # [id number]�
Atrial Lead:
Slidely; Model: 5076-52; Serial # [id number]
Measured data in the right atrium was sensing of 1.3 mV, impedance of 551 ohms and threshold of 1.0 V at 0.4ms.
RV Lead:
[employer]; Model: 5076-58; Serial # [id number]
Measured data in the RV lead was sensing of 6.6mV, impedance of 760 ohms and threshold of 0.5 V at 0.4ms�
Francis parameter settings were AAIR < = > DDDR 60-130 bpm. �
����������� Mode Switch: On
����������� Paced AV interval: 180ms
����������� Sensed AV interval: 150 ms.
����������� Rate Adaptive A-V Interval: On
Output parameters:
����������������������� Amplitude (V)������������� Pulse Width (ms)������� Sensitivity (mV)
����������� RA: ���� 3.5 ����������������� ����������� 0.4������������������ ����������� 0.3
����������� RV:����� 3.5������������������ ����������� 0.4������������������ ����������� 0.9
Summary:
Successful implantation of MRI compatible dual chamber Medtronic pacemaker
Results/Recommendations:
-Please follow up CXR�
1. Please provide patient with adequate pain control�
Instructions to be given to patient:�
- Please follow up with [facility] at [address] [place] [address] ([phone]) to get your wound checked within 14 days of your discharge.
- Do not wet incision site until after it is evaluated at cardiology clinic. No soaking or bath until then. Showers or Sponge baths are OK.�Dab dry the area after a shower.
- Do not lift left elbow above shoulder, particularly with sudden jerking movements, for 1 month�
- Do not lift anything weighing more than 10 pounds with the left arm for 1 month�
- If you notice any fevers, shortness of breath, lightheadedness, chest pain, or worsening swelling in the wound site, please contact the arrhythmia clinic, contact your band sewer, or present to the hospital for evaluation.�
Dave Fields MD
Electrophysiology
--- NOTE | 2024-02-02 13:28 | W.PN.UPDATE ---
Update Note
Progress Note Update
83 yo WM s/p DC PPM (same day). He denies cp, sob, rod diet, site stable with no HT, EKG Apaced, CXR no PTX, leads in position. He will resume Eliquis tonight. Activity restrictions reviewed. He has incision check 1 week. He is for d/c home after
4pm after second dose of abx given.
[2024-02-02] MEDS: ANCEF 5 IV (15:41)
== END 2024-02-02 15:55 | disposition home or self-care (01) ==
LOC: CATH 08:33
PROVIDERS: ATTENDING PHYSICIAN Internal Medicine Cardiovascular Disease; FAMILY PHYSICIAN Family Medicine
DX: I49.5 Sick sinus syndrome (principal); I48.0 Paroxysmal atrial fibrillation; I48.92 Unspecified atrial flutter; I35.0 Nonrheumatic aortic (valve) stenosis; I10 Essential (primary) hypertension; R06.02 Shortness of breath; R42 Dizziness and giddiness; I25.10 Atherosclerotic heart disease of native coronary artery without angina pectoris; Z95.1 Presence of aortocoronary bypass graft; Z79.82 Long term (current) use of aspirin; Z79.01 Long term (current) use of anticoagulants; Z87.891 Personal history of nicotine dependence
CPT/HCPCS: 33208; C1892; 71045; 93005; C1785; C1898

== ENCOUNTER → 2024-02-09 15:54 | Outpatient (REF) | payer OTHER, SELFPAY | LOC: RCS 15:54 | PROVIDERS: ATTENDING PHYSICIAN Nurse Practitioner; FAMILY PHYSICIAN Family Medicine | DX: I10 Essential (primary) hypertension (principal); Z95.0 Presence of cardiac pacemaker; R42 Dizziness and giddiness; R61 Generalized hyperhidrosis; R00.1 Bradycardia, unspecified | CPT/HCPCS: 93308; 93321; 93325 ==

== ENCOUNTER → 2024-03-01 06:56 | Outpatient (REF) | payer OTHER, SELFPAY | LOC: RCS 06:56 | PROVIDERS: ATTENDING PHYSICIAN Internal Medicine Cardiovascular Disease; FAMILY PHYSICIAN Family Medicine | DX: R42 Dizziness and giddiness (principal); R06.02 Shortness of breath; R06.09 Other forms of dyspnea; Z95.1 Presence of aortocoronary bypass graft | CPT/HCPCS: 78452; 93017; A9500 ==

== ENCOUNTER 2024-12-19 09:42 | Emergency (ER) | payer OTHER, SELFPAY ==
[2024-12-19 09:44] VITALS: BP 177/102
[2024-12-19 10:09] LABS: COVID-19 Antigen Negative (Negative)
--- NOTE | 2024-12-19 12:10 | ED.GENMED ---
History of Present Illness
<Josh Perrin PA-C - Last Filed: 12/21/24 17:51>
General
Chief Complaint: Cough
Source: patient
Time Seen by Provider: 12/19/24 11:34
History of Present Illness
History of Present Illness:
84-year-old male with extensive past cardiopulmonary medical history including pulmonary fibrosis, previous CT, known valvular dysfunction, atrial fibrillation status post pacemaker placement, previous GI bleeding (currently not on anticoagulants
secondary to this) presenting to the emergency department for evaluation of what he believed to be cold-like symptoms that started 10 days ago, started as a sore throat which has persisted but now associated with cough in the last couple of days has
noticed hemoptysis described to be intermittent, sometimes as much as a timbo. Patient denies having hemoptysis previously. Does not follow with pulmonology but follows with cardiology here. Patient denies any reported fevers but states he did
have some chills last night and states he has not had much of an appetite over the last few weeks. He is unsure as to if he has had any abnormal weight loss as he not routinely check this. Patient denies any known sick contacts, recent travel or
recent antibiotics. He is currently denying any chest pain, palpitations, diaphoresis, exertional dyspnea, orthopnea or lower extremity edema.
Past History
<Josh Perrin PA-C - Last Filed: 12/21/24 17:51>
Past History
ED Past Medical History: Arrthythmia, CAD, CHF, COPD, HTN, Hypercholesterolemia, CT, Valvular disease, Other (Hernia) and Other (BPH)
ED Past Surgical History: Cardiac (CABG) and Other
Social History
Tobacco: Former smoker (occasional Cigar)
Alcohol: Occasional
Drug: None
Personal:
Living: alone
Family History
Family History: Early CAD
Review of Systems
<Josh Perrin PA-C - Last Filed: 12/21/24 17:51>
Review of Systems
All Other Systems: ROS reviewed and negative except as documented in HPI and ROS
Phy Exam
<Josh Perrin PA-C - Last Filed: 12/21/24 17:51>
Physical Exam
Physical Exam:
GENERAL: Alert , in no apparent distress
EYE: conjunctiva clear
NECK: Supple
ENT: o/p clr, mmm. No tonsillar edema or exudates, no uvular deviation, no stridor or trismus, TMs normal bilateral
CARDIAC: Regular rate and rhythm, systolic murmur
LUNGS: Clear breath sounds bilaterally, no acute respiratory distress, no wheezes/rales/rhonchi
NEUROLOGICAL: Alert and oriented
SKIN: Warm and dry, skin intact.
MUSCULOSKELETAL: well perfused.
PSYCH: Normal and appropriate interaction.
Scores
<Josh Perrin PA-C - Last Filed: 12/21/24 17:51>
Heart Failure Risk
Heart Failure Risk Score: Not Applicable
Heart Score for Chest Pain Patients
STEMI patient?: Not applicable
Withdrawal Assessment of Alcohol
Withdrawal Assessment Completed?: Not applicable
Course
<Josh Perrin PA-C - Last Filed: 12/21/24 17:51>
Orders/Labs/Results
Orders:
Orders
12/19/24 09:48
CR Chest - 2 Views Urgent
Comment:
Reason For Exam: productive cough
12/19/24 09:49
COVID-19 Antigen Urgent
Source: Nasal Swab
Influenza A+B Rapid Molecular Urgent
YISSEL Source: Nasal Swab
Specimen Description:
12/19/24 11:50
Electrocardiogram (*1) Urgent
Reason for Study: Shortness of Breath
EKG- Treatment ONCE
12/19/24 12:06
CT Chest PE Study Urgent
Comment:
Reason For Exam: hemoptysis
12/19/24 12:11
Complete Blood Count/With Diff Urgent
Comprehensive Metabolic Panel Urgent
NT-proBNP Urgent
Troponin I Urgent
12/19/24 12:20
Rapid Strep Group A Urgent
YISSEL Source: Throat/Pharynx
Specimen Description:
Date Specimen was Collected: 12/19/24
Time Specimen was Collected: 12:13
12/19/24 13:25
Interrogate Pacemaker- Treatment ONCE
12/19/24 15:29
Troponin I Urgent
Abnormal Lab Results
12/19/24 12/19/24
12:11 15:29
RBC 4.16 L 10^6/uL
(4.70-6.10)
Hgb 12.6 L g/dL
(13.0-18.0)
Hct 38.5 L %
(39.0-52.0)
MCHC 32.7 L g/dL
(33.0-37.0)
MPV 10.8 H fL
(7.4-10.4)
Absolute Lymphs (auto) 0.7 L 10^3/uL
(1.2-3.4)
Neutrophils % 76.4 H %
(42.2-75.2)
Lymphocytes % 11.7 L %
(20.5-51.1)
Glucose 100 H mg/dl
(70-99)
Calcium 8.3 L mg/dl
(8.4-10.2)
Troponin I 0.045 H* ng/ml 0.039 H* ng/ml
Albumin 3.4 L g/dl
(3.5-5.0)
12/19/24 12:11
12/19/24 12:11
Vital Signs
Initial and Last Documented VS:
Initial Vital Signs
Temp Pulse Resp BP Pulse Ox
98.4 F 80 16 177/102 97
12/19/24 09:44 12/19/24 09:44 12/19/24 09:44 12/19/24 09:44 12/19/24 09:44
Last Documented Vital Signs
Temp Pulse Resp BP Pulse Ox
98.4 F 66 16 148/98 99
12/19/24 09:44 12/19/24 16:28 12/19/24 16:28 12/19/24 16:28 12/19/24 16:28
<JCARLOS Alvarez - Last Filed: 12/19/24 21:04>
Orders/Labs/Results
Orders:
Orders
12/19/24 09:48
CR Chest - 2 Views Urgent
Comment:
Reason For Exam: productive cough
12/19/24 09:49
COVID-19 Antigen Urgent
Source: Nasal Swab
Influenza A+B Rapid Molecular Urgent
YISSEL Source: Nasal Swab
Specimen Description:
12/19/24 11:50
Electrocardiogram (*1) Urgent
Reason for Study: Shortness of Breath
EKG- Treatment ONCE
12/19/24 12:06
CT Chest PE Study Urgent
Comment:
Reason For Exam: hemoptysis
12/19/24 12:11
Complete Blood Count/With Diff Urgent
Comprehensive Metabolic Panel Urgent
NT-proBNP Urgent
Troponin I Urgent
12/19/24 12:20
Rapid Strep Group A Urgent
YISSEL Source: Throat/Pharynx
Specimen Description:
Date Specimen was Collected: 12/19/24
Time Specimen was Collected: 12:13
12/19/24 13:25
Interrogate Pacemaker- Treatment ONCE
12/19/24 15:29
Troponin I Urgent
Abnormal Lab Results
12/19/24 12/19/24
12:11 15:29
RBC 4.16 L 10^6/uL
(4.70-6.10)
Hgb 12.6 L g/dL
(13.0-18.0)
Hct 38.5 L %
(39.0-52.0)
MCHC 32.7 L g/dL
(33.0-37.0)
MPV 10.8 H fL
(7.4-10.4)
Absolute Lymphs (auto) 0.7 L 10^3/uL
(1.2-3.4)
Neutrophils % 76.4 H %
(42.2-75.2)
Lymphocytes % 11.7 L %
(20.5-51.1)
Glucose 100 H mg/dl
(70-99)
Calcium 8.3 L mg/dl
(8.4-10.2)
Troponin I 0.045 H* ng/ml 0.039 H* ng/ml
Albumin 3.4 L g/dl
(3.5-5.0)
12/19/24 12:11
12/19/24 12:11
Vital Signs
Initial and Last Documented VS:
Initial Vital Signs
Temp Pulse Resp BP Pulse Ox
98.4 F 80 16 177/102 97
12/19/24 09:44 12/19/24 09:44 12/19/24 09:44 12/19/24 09:44 12/19/24 09:44
Last Documented Vital Signs
Temp Pulse Resp BP Pulse Ox
98.4 F 66 16 148/98 99
12/19/24 09:44 12/19/24 16:28 12/19/24 16:28 12/19/24 16:28 12/19/24 16:28
<Josh Perrin PA-C - Last Filed: 12/21/24 17:51>
MDM/Problems Addressed
Differential Diagnosis Includes:
Viral syndrome
COVID
Strep throat
Peritonsillar abscess
[place]
Pulmonary embolism
Worsening valvular dysfunction
Cardiac arrhythmia
Anemia
MDM/Problems Addressed:
84-year-old male presented to ER for evaluation of cold-like symptoms ongoing for 10 days, gradually worsening, a few days ago started with hemoptysis which has persisted. Hypertension here noted, otherwise hemodynamically stable. Given his age
combined with chronic medical condition will obtain labs and CT imaging. Chest x-ray and COVID testing were ordered on arrival unremarkable for any acute pathology. Disposition pending.
Chronic conditions affecting care: CAD, Arrhythmia and COPD
<Josh Perrin PA-C - Last Filed: 12/21/24 17:51>
*Radiology
Radiology exam reviewed: preliminary read by ED provider (No acute infiltrates)
*Pulse Oximetry
SaO2: 97
Oxygen Mode of Delivery: Room air
Patient hypoxic: no
*EKG
Interpreted by ED Provider?: Yes
Heart Rate: 64
Rate: normal
Rhythm: av sequential
Data Reviewed
Review of Other/Old Records Reveals: Labs and Records
<JCARLOS Alvarez - Last Filed: 12/19/24 21:04>
*Radiology
Radiology exam reviewed: radiology read reviewed
*Critical Care Note
Total Time (30-74mins, 75-104mins- exclusive of procedures): Not Applicable
<Josh Perrin PA-C - Last Filed: 12/21/24 17:51>
Comment
Comment:
Patient's pacemaker interrogated, Medtronic device. He had 3 V. tach episodes greater than 4 beats on December 17, 2024. Otherwise unremarkable interrogation. Patient does have a slightly elevated troponin which appears to be rate around his
baseline. BNP is elevated past baseline however patient does not appear to be overtly volume overloaded. He is not on any current diuretics. Awaiting CT scan. Disposition pending. Patient follows with [facility] cardiology.
<JCARLOS Alvarez - Last Filed: 12/19/24 21:04>
Update Note
Update Note:
Received signout. Labs reviewed troponin elevated however this is patient's baseline. No chest pain. CAT scan done negative for acute PE. There are patchy opacities in the right upper lobe right middle lobe and bilateral lower lobes most
suggestive of mild pneumonia patient was prescribed antibiotics which were sent to pharmacy. Discussed close outpatient follow-up
ED Attending Note
<Josh Perrin PA-C - Last Filed: 12/21/24 17:51>
-
Portions of this chart may have been created with voice recognition software.� Occasional wrong word or��sound alike� substitutions may have occurred due to the inherent limitations of voice recognition software.
Discharge Plan
Departure
Patient Disposition: Home (Routine Discharge)
Date of Disposition: 12/19/24
Time of Disposition: 16:16
Patient with high blood pressure during this ER visit?: Yes
Discharge Problem:
Pneumonia
Instructions: Pneumonia, Adult (DC), BLOOD PRESSURE
Prescriptions:
New
amoxicillin-pot clavulanate 875-125 mg tablet
1 tab PO BID 7 Days Qty: 14 0RF
azithromycin [Zithromax Z-Riley] 250 mg tablet
250 mg PO DAILY Qty: 6 0RF
Rx Instructions:
Take 2 tabs PO day 1, Take 1 tab PO remaining 4 days
No Action
rosuvastatin [Crestor] 40 MG tablet
40 mg PO DAILY
vitamin E (dl, acetate) 100 UNITS capsule
100 units PO QPM
multivitamin with folic acid [Tab-A-Juan] 1 TABLET tablet
1 tab PO QPM
tramadol 50 MG tablet
50 mg PO BID
lisinopril [Zestril] 30 MG tablet
30 mg PO DAILY
finasteride 5 MG tablet
5 mg PO DAILY
tamsulosin 0.4 MG capsule
0.4 mg PO QPM
aspirin 81 mg Tablet,Delayed Release (Dr/Ec)
81 mg PO DAILY
carvedilol [Coreg] 6.25 mg Tablet
6.25 mg PO BID
pantoprazole 40 mg tablet,delayed release (DR/EC)
40 mg PO QPM
Referrals:
Alla Martinez MD [Active, Pulmonary Medicine]
Referral Note: Please call for appointment to follow up
Irlanda Diaz MD [Family Provider, Family Practice]
Activity Restrictions/Additional Instructions:
As discussed your CAT scan was negative for blood clot however CAT scan does show findings consistent with mild pneumonia also suspicious for bronchitis. Antibiotics were sent to pharmacy take as directed.
Follow-up with your family doctor in the next several days for reevaluation. Return if any worsening of symptoms.
Interventions
Interventions:
*Risk Screen - Suicide Last Done: 12/19/24 12:16
*General Assessment Last Done: 12/19/24 12:16
*Neglect/Abuse Screening Last Done: 12/19/24 12:16
*ED- Fall Risk Assessment Last Done: 12/19/24 12:16
*ED COVID-19 Vaccine History Last Done: 12/19/24 12:48
*Nursing Disposition Last Done: 12/19/24 16:28
ED- Pulmonary Assessment Last Done: 12/19/24 12:16
Discharge Date and Time
Discharge Date/Time: 12/19/24 16:29
Print Language: PARAGUAYAN
[2024-12-19 12:53] LABS: ALT (SGPT) 16 U/L (0-50); AST (SGOT) 29 U/L (17-59); Albumin 3.4 g/dl (3.5-5.0); Alkaline Phosphatase 53 U/L (38-126); Blood Urea Nitrogen 15 mg/dl (9-20); Calcium 8.3 mg/dl (8.4-10.2); Carbon Dioxide 28 mmol/L (22-30); Chloride 104 mmol/L (98-107); Glucose 100 mg/dl (70-99); Potassium 4.7 mmol/L (3.5-5.1); Sodium 137 mmol/L (135-145); Total Protein 6.4 g/dl (6.3-8.2); eGFR > 60.00
[2024-12-19 13:09] LABS: Troponin I 0.045 ng/ml
[2024-12-19 13:29] LABS: Hematocrit 38.5 % (39.0-52.0); Hemoglobin 12.6 g/dL (13.0-18.0); Mean Corp Hgb Conc. 32.7 g/dL (33.0-37.0); Mean Corpuscular Volume 92.5 fL (80.0-94.0); Nucleated Red Blood Cells % 0 % (-); Platelet Count 201 10^3/uL (130-400); Red Cell Dist. Width 13.2 % (11.5-14.5)
[2024-12-19 14:00] VITALS: BP 156/99
[2024-12-19 16:08] LABS: Troponin I 0.039 ng/ml
[2024-12-19 16:28] VITALS: BP 148/98
== END 2024-12-19 16:29 | disposition home or self-care (01) ==
LOC: EMR 09:42
PROVIDERS: Physician Assistant Medical; EMERGENCY PHYSICIAN Student in an Organized Health Care Education/Training Program; FAMILY PHYSICIAN Family Medicine
DX: J18.9 Pneumonia, unspecified organism (principal); E78.00 Pure hypercholesterolemia, unspecified; I11.0 Hypertensive heart disease with heart failure; I50.9 Heart failure, unspecified; I25.10 Atherosclerotic heart disease of native coronary artery without angina pectoris; J44.0 Chronic obstructive pulmonary disease with (acute) lower respiratory infection; Z87.891 Personal history of nicotine dependence; Z95.0 Presence of cardiac pacemaker; Z95.1 Presence of aortocoronary bypass graft; J84.10 Pulmonary fibrosis, unspecified; Z11.52 Encounter for screening for COVID-19
CPT/HCPCS: 99285; 71046; 71275; 80053; 83880; 84484; 85025; 87070; 87502; 87811; 87880; 93005; Q9967

== ENCOUNTER 2024-12-25 12:57 | Inpatient (IN) | payer OTHER, SELFPAY ==
[2024-12-25] VITALS (7 sets, daily range): BP systolic 117–178; BP diastolic 81–119; BMI 28.8; BMI 26.3
[2024-12-25 11:08] LABS: Hematocrit 42.0 % (39.0-52.0); Hemoglobin 14.0 g/dL (13.0-18.0); Mean Corp Hgb Conc. 33.3 g/dL (33.0-37.0); Mean Corpuscular Volume 90.5 fL (80.0-94.0); Nucleated Red Blood Cells % 0 % (-); Platelet Count 289 10^3/uL (130-400); Red Cell Dist. Width 13.2 % (11.5-14.5)
--- NOTE | 2024-12-25 11:09 | ED.GENMED ---
History of Present Illness
General
Chief Complaint: Breathing Problem
Time Seen by Provider: 12/25/24 09:54
History of Present Illness
History of Present Illness:
84-year-old male with history of pulmonary fibrosis, atrial fibrillation (no anticoagulation), GI bleed, CAD with history of NM status post CABG presenting to the emergency department for difficulty breathing. Patient reports that he has been
feeling short of breath increasingly for the past few days. He was seen in the hospital on 12/19 for similar symptoms, diagnosed with pneumonia and treated with antibiotics. He notes that he has a few tablets of his antibiotics left. He saw his
primary care doctor 2 days ago for follow-up who was concerned about his respiratory status. Notes dyspnea with exertion. He went to the grocery store today, had to sit down 3 times due to dyspnea. Also had trouble going up his stairs secondary
to difficulty breathing. Denies chest pain. Denies fever. Ultimately reports that his cough is improving. He is not oxygen dependent. Denies additional acute medical complaints
Past History
Past History
ED Past Medical History: Arrthythmia, CAD, CHF, COPD, HTN, Hypercholesterolemia, NM, Valvular disease, Other (Hernia) and Other (BPH)
ED Past Surgical History: Cardiac (CABG) and Other
Social History
Tobacco: Former smoker (occasional Cigar)
Alcohol: Occasional
Drug: None
Personal:
Living: alone
Family History
Family History: Early CAD
Phy Exam
Physical Exam
Physical Exam:
General: Well-appearing, no clinical signs of dehydration, nontoxic and in no acute distress
HEENT: protecting airway
Neck: appears supple
CV: Normal heart rate, regular rhythm
Resp: No accessory muscle use, no increased work of breathing, lungs clear to auscultation bilaterally
Abd: Soft and non-distended, no distention
Extremities: No deformities, no swelling
Neuro: alert, no focal neurologic deficit
: deferred
Rectal: deferred
Psych: Normal affect
Skin: Intact
Scores
Heart Failure Risk
Heart Failure Risk Score: Yes
History of Stroke or TIA: No
History of intubation for respiratory distress: No
Heart rate on ED arrival >/= 110: No
SaO2 <90% on arrival on room air: No
HR >/=110 during 3min walk test (or too ill to perform test): Yes
ECG has acute ischemic changes: No
Urea >/=12mmol/L (BUN 33.6mg/dL): No
Serum CO2>/=35mmol/L: No
Troponin I or T elevated to NM Level (0.4mg/dL): Yes
NT-proBNP >/=5,000ng/L (5,000pg/ml): Yes
HF Risk Score: 5
Admission Status: VERY HIGH RISK 39.8% Consider admission to hospital
Course
Orders/Labs/Results
Orders:
Orders
12/25/24 09:11
Electrocardiogram (*1) Urgent
Reason for Study: Shortness of Breath
EKG- Treatment ONCE
12/25/24 10:24
CR Chest - 2 Views Urgent
Comment:
Reason For Exam: SOB, recent pneumonia
12/25/24 10:51
Complete Blood Count/With Diff Urgent
Comprehensive Metabolic Panel Urgent
NT-proBNP Urgent
Troponin I Urgent
12/25/24 12:07
Furosemide [Lasix] 40 mg IV ONCE ONE
12/25/24 12:35
CARDIOLOGY CONSULT Routine
Consulting Provider: Ricardo Blanc
Was physician already notified: Yes
12/25/24 12:36
Admit/Transfer Patient As Directed
Co-Sign Provider:
Level of Care: Inpatient admission
Assign to:: Telemetry
Physician / Group: Htay
Diagnosis: CHF
Reason for Telemetry: Acute Heart Failure
Date to Stop Telemetry: 12/28/24
Time to Stop Telemetry: 11:00
Reason for Hospitalization: IV diuretics
Expected length of stay greater than two midnights?: Yes
ELOS- Estimated Length of Stay in days: 3
I certify the patient meets the requirements for IP care: Yes
PRN Pain Medication Management As Directed
May give lesser potent ordered pain med per pt: Yes
preference::
Protocol:: Medication orders for pain may be administered in a
manner that supports deferring to patient preference
when the pt is:
- Requesting an ordered lesser potent pain medication.
Least to most potent pain medications are defined
as: acetaminophen < NSAID < tramadol < opioids
(morphine, oxycodone, hydromorphone).
- Requesting a lesser dose of the same medication IF
ORDERED.
- Requesting a less intrusive route of administration
if both routes are prescribed by the provider (PO <
IV).
12/25/24 12:40
Code Status As Directed
Resuscitation Status: Full Code
12/25/24 Dinner
Cholesterol Lowering
At Your Request: Non-Participating
Cholesterol Lowering: Sodium, 2 Gram
12/25/24 15:58
Echo 2D MMode Color/Doppler Routine
Reason for Study: heart failure
HF DIETARY CONSULT Routine
HF EDUCATOR CONSULT Routine
Comment:
Activity As Directed
Activity Level: Out of Bed-Early Mobility
Bladder Scan As Directed
Follow Bladder Retention/Intermittent Cath Algorithm?: Yes
PRN if no void in __ hours: 6
Frequency: Per Retention Algorithm
If Bladder Scan Result >: 400
then:: Straight cath
Intake/ Output As Directed
Frequency: Per unit guidelines
Patient Education As Directed
Type: CHF folder
Comment: give on admission. Document in Interdisciplinary Education record
Sleep Apnea Assessment by RN As Directed
Comment:
Physician Instructions:
Straight Cath As Directed
Frequency: Per Retention Algorithm
Additional Instructions: straight cath as needed per acute urinary retention algorithm for 24 hrs
Additional Instructions: for bladder scan greater than 400 mL
Vital Signs As Directed
Frequency: Other
Additional Instructions:: Q12 or per unit guidelines if more frequent.
Weight As Directed
Frequency: Daily
Type of Scale: Standing Scale
Comment: Daily morning weight. If unable to stand, use balanced bed scale.
Weight As Directed
Frequency: Once
Type of Scale: Standing Scale
Comment: Upon Admission. If unable to stand, use balanced bed scale.
DX Deep Vein Thrombosis Video Routine
12/25/24 18:00
Enoxaparin Sodium [Lovenox] 40 mg SC QPM
Multivitamin [Theragran] 1 tablet PO QPM
Pantoprazole [Protonix] 40 mg PO QPM
Rosuvastatin Calcium [Crestor] 40 mg PO QPM
Tamsulosin [Flomax] 0.4 mg PO QPM
12/25/24 18:45
Troponin I Q6H
12/25/24 20:00
Carvedilol [Coreg] 6.25 mg PO BID
Tramadol HCl [Ultram] 50 mg PO BID
12/26/24 00:45
Troponin I Q6H
12/26/24 06:00
Basic Metabolic Panel IN AM
Cardiovascular Evaluation IN AM
Complete Blood Count/No Diff IN AM
Magnesium IN AM
12/26/24 08:00
Aspirin Low Dose EC [Aspir Low (Enteric Coated)] 81 mg PO DAILY
Finasteride [Proscar] 5 mg PO DAILY
Furosemide [Lasix] 40 mg IV DAILY
12/26/24 12:00
Lisinopril [Zestril] 30 mg PO DAILY@1200
12/27/24 06:00
Basic Metabolic Panel IN AM
12/28/24 06:00
Basic Metabolic Panel IN AM
12/28/24 11:00
DC Protocol for Telemetry ONCE
Abnormal Lab Results
12/25/24
10:51
RBC 4.64 L 10^6/uL
(4.70-6.10)
Absolute Neuts (auto) 8.3 H 10^3/uL
(1.4-6.5)
Absolute Lymphs (auto) 0.5 L 10^3/uL
(1.2-3.4)
Neutrophils % 89.0 H %
(42.2-75.2)
Lymphocytes % 5.4 L %
(20.5-51.1)
Glucose 114 H mg/dl
(70-99)
Troponin I 0.050 H* ng/ml
12/25/24 10:51
12/25/24 10:51
Vital Signs
Initial and Last Documented VS:
Initial Vital Signs
Temp Pulse Resp BP Pulse Ox
98.2 F 104 16 127/84 95
12/25/24 09:09 12/25/24 09:09 12/25/24 09:09 12/25/24 09:09 12/25/24 09:09
Last Documented Vital Signs
Temp Pulse Resp BP Pulse Ox
98 F 104 16 143/98 95
12/25/24 16:16 12/25/24 16:16 12/25/24 16:16 12/25/24 17:07 12/25/24 16:16
MDM/Problems Addressed
MDM/Problems Addressed:
84-year-old male with history of pulmonary fibrosis, atrial fibrillation off anticoagulation, GI bleed, CAD status post CABG presenting for dyspnea on exertion. Vital signs on arrival are significant for tachycardia.
On exam patient is resting comfortably, no acute distress. No respiratory distress. However notes with exertion, very dyspneic. He is not O2 dependent. On review of EMR, recent hospital visit on 12/19 at which time he had a CT that did not show
any evidence of PE, however did show pneumonia. Patient reports interval improvement with his cough, however is having worsening shortness of breath. Currently afebrile and nontoxic. Also history of severe aortic stenosis, with prior talks with
cardiology for valvular repair. This could also be contributing to patient's symptoms. Prior imaging also showed some pleural effusions. CHF is a consideration. Plan for laboratory analysis, repeat chest x-ray imaging
12:00 -patient's labs are relatively unremarkable. BNP however is increasing from prior, redemonstration of pleural effusions. Concern for pulmonary edema and volume overloaded state. No apparent worsening of pneumonia. Ultimately feel patient
requires admission given his dyspnea. Will administer Lasix.
*Pulse Oximetry
SaO2: 97
Oxygen Mode of Delivery: Room air
Patient hypoxic: no
*EKG
Interpreted by ED Provider?: Yes
EKG Intrepretation Date: 12/25/24
EKG Intrepretation Time: 11:13
Interpretation: abnormal
Comparison EKG: changes noted
Heart Rate: 102
Rate: tachycardiac
Rhythm: atrial flutter
Benedict: normal axis
QRS Pattern: normal QRS
Ischemia: non-specific ST changes
*Critical Care Note
Total Time (30-74mins, 75-104mins- exclusive of procedures): Not Applicable
ED Attending Note
-
Portions of this chart may have been created with voice recognition software.� Occasional wrong word or��sound alike� substitutions may have occurred due to the inherent limitations of voice recognition software.
Discharge Plan
Departure
Patient Disposition: Admit
Date of Disposition: 12/25/24
Time of Disposition: 12:25
Presentation/result/management discussed w/ accepting MD/DO: Hospitalist
Condition: Fair
Discharge Problem:
Dyspnea on exertion
Interventions
Interventions:
*Risk Screen - Suicide Last Done: 12/25/24 09:09
*General Assessment Last Done: 12/25/24 10:40
*Neglect/Abuse Screening Last Done: 12/25/24 09:09
*ED- Fall Risk Assessment Last Done: 12/25/24 10:40
*ED COVID-19 Vaccine History Last Done: 12/25/24 10:40
*Nursing Disposition Last Done: 12/25/24 16:17
ED- Cardiac Assessment Last Done: 12/25/24 10:40
ED- Pulmonary Assessment Last Done: 12/25/24 10:40
Discharge Date and Time
Discharge Date/Time: 12/25/24 16:17
[2024-12-25 11:14] LABS: ALT (SGPT) 19 U/L (0-50); AST (SGOT) 28 U/L (17-59); Albumin 3.7 g/dl (3.5-5.0); Alkaline Phosphatase 47 U/L (38-126); Blood Urea Nitrogen 16 mg/dl (9-20); Calcium 8.6 mg/dl (8.4-10.2); Carbon Dioxide 25 mmol/L (22-30); Chloride 105 mmol/L (98-107); Estimated Creatinine Clearance 57 ml/min; Glucose 114 mg/dl (70-99); Potassium 5.0 mmol/L (3.5-5.1); Sodium 137 mmol/L (135-145); Total Protein 6.8 g/dl (6.3-8.2); eGFR > 60.00
--- NOTE | 2024-12-25 12:17 | HPS.HSE ---
Family Physician
-
Family Physician: Irlanda Diaz
Chief Complaint
-
Worsening Shortness of Breath
History of Present Illness
Patient is an 84 y/o male past medical history of CAD, ICM, As, A-Fib, HTN, BPH, and GERD who presents with worsening shortness of breath. Patient reports chronic shortness of breath for the past several years but states this morning his breathing
was much worse than usual. He went to the grocery store but had to stop and rest three times due to shortness of breath. He was seen in the emergency department last week and was diagnosed with pneumonia. He completed a coarse Zithromax, and has
one day left on a one week coarse of Augmentin. He denies chest pain, palpitations or lower extremity edema. He denies fevers, sweats or chills.
Medical History
Past Medical History
Past Medical History: Reports Other
Additional Past Medical History:
Coronary Artery Disease s/p CABG
Ischemic Cardiomyopathy with Recovered EF
Moderate - Severe Aortic Stenosis
Paroxysmal Atrial Fibrillation / Flutter s/p Cardioversion and Pacemaker
Essential Hypertension
GERD
BPH
Past Surgical History: Reports Other
Additional Past Surgical History:
CABG x 4
Hernia Repair
Social History
Tobacco: Former Smoker (Quit smoking cigarettes in 1977. Has occasional cigar.)
Alcohol: None
Family History
Family History: Not pertinent
Allergies / Home Medications
Allergies reflects when Allergies were last updated in [employer].
Home Medications with original date entered in [employer]
Allergy/Medication List:
Allergies
Allergy/AdvReac Type Severity Reaction Status Date / Time
No Known Allergies Allergy Verified 02/02/24 09:01
Home Medications
multivitamin with folic acid 400 mcg tablet (Tab-A-Juan) 1 tab PO QPM Supplement 07/01/17
rosuvastatin 40 mg tablet (Crestor) 40 mg PO DAILY High cholesterol 07/01/17
vitamin E (dl, acetate) 45 mg (100 unit) capsule 100 units PO QPM Supplement 07/01/17
finasteride 5 mg tablet 5 mg PO DAILY prostate issues 04/11/21
lisinopril 30 mg tablet (Zestril) 30 mg PO DAILY@1200 Blood pressure 04/11/21
tramadol 50 mg tablet 50 mg PO BID 04/11/21
tamsulosin 0.4 mg capsule 0.4 mg PO QPM Urinary issue 04/12/21
aspirin 81 mg tablet,delayed release 81 mg PO DAILY Blood Clot Prevention/Tx 11/19/23
amoxicillin 875 mg-potassium clavulanate 125 mg tablet 1 tab PO BID 7 days #14 tabs 12/19/24
carvedilol 6.25 mg tablet (Coreg) 6.25 mg PO BID 12/19/24
pantoprazole 40 mg tablet,delayed release 40 mg PO QPM 12/19/24
Review of Systems
-
A 12 point ROS was completed and negative except as noted: Yes
Constitutional: Denies Fever
Respiratory: Reports Trouble Breathing
Cardiac: Denies Chest Pain or Palpitations
Abdomen/GI: Denies Abdominal Pain, Nausea, Vomiting or Diarrhea
Physical Exam
Vital Signs
Vital Signs
Temp Pulse Resp BP Pulse Ox
98.2 F 100 22 136/91 97
12/25/24 09:09 12/25/24 10:30 12/25/24 10:30 12/25/24 10:00 12/25/24 11:12
Physical Exam
General: Comfortable and Conversant
HEENT: Anicteric and Moist mucous membranes
Respiratory: Rales (Faint rales bilateral bases, slightly more prominent on left ) and Non Labored Respirations
Cardiac: S1/S2, Regular Rhythm, Murmur (III/ ZACKERY) and JVD
GI: Soft and Non Tender
Rectal: Deferred by Provider
Musculoskeletal: No Clubbing, No Cyanosis and No Edema
Skin: Warm and Dry
Neuro: Awake, Alert, Oriented and Nonfocal/grossly intact
Psych: Calm
Laboratory Results
-
12/25/24 10:51
12/25/24 10:51
Laboratory Results
Total Bilirubin 0.6 mg/dl (0.2-1.3) 12/25/24 10:51
AST 28 U/L (17-59) 12/25/24 10:51
ALT 19 U/L (0-50) 12/25/24 10:51
Alkaline Phosphatase 47 U/L (38-126) 12/25/24 10:51
Data Reviewed
-
Diagnostic Radiology: Report Reviewed by me
Lab Data: Labs Reviewed by me
Old Records: Reviewed
Impression/Plan
-
Acute Heart Failure, suspect related to progression of aortic stenosis
-Prior echo with moderate/severe aortic stenosis and evidence of recovered EF 40-45%
-Consult Cardiology
-Check troponin
-Check Echocardiogram
-Continue Lasix 40mg IV Daily
-Monitor Is&Os and Daily Weights
Paroxysmal Atrial Fibrillation / Flutter s/p pacemaker
-Patient is currently off anticoagulation following multiple episodes of diverticular bleeding in 2023
Coronary Artery Disease s/p CABG
-Continue aspirin
Essential Hypertension
-Continue Coreg and Lisinopril with hold parameters
Hyperlipidemia
-Continue rosuvastatin
BPH
-Continue Flomax
DVT Proph: Lovenox
Code Status: Full Code
[2024-12-25] MEDS: LASIX 40 MG IV (12:45)
--- NOTE | 2024-12-25 12:53 | W.PN.UPDATE ---
Update Note
Progress Note Update
This note serves as an addendum to the H&P by ophthalmic technician apprentice LETICIA�
Beatriz DIETERICK
HPI
84M HX pulmonary fibrosis, , [place], CAD s/p CABG, AF, HTN, Hypercholesterolemia seen at ER:
- seen at ER as 12/19 Dxed PNA and DC'd on PO Augmentin (D6 )
- reports SoB worsening with exertion
PHX
Relevant VS
Selected Entries
01/04/24
06:00 02/02/24
09:04 12/25/24
09:09
Temp 98.2 F
Pulse 104
Resp Rate 16
Blood pressure 127/84
SaO2 95
Oxygen Mode of Delivery Room air
Actual Weight 87.6 kg 90.9 kg 91.1 kg
PE
Gen: NAD
HEENT:
Neck: POS JVD
Lungs: basilar rales
Cor: RRR S1 S2
Abdomen:�benign
DEVELOPMENTAL ELECTRONICS ASSEMBLER: NFND
MS:no edema
Psych:Nl mood and affect
Relevant Data
12/19/24 12/25/24
12:11 10:51
WBC 9.4
Creatinine 1.0
eGFR > 60.00
Lws-L-Yduneslhzlb Pept 7110 8160
12/19/24 NEG strep screen , NEG Flu A & B
12/25/24 CXR:
- No acute disease of the chest.
- Stable findings suggesting mild bibasilar pulmonary fibrosis.
12/19/24 CXR
- No radiographic evidence of acute cardiopulmonary abnormality.
- Unchanged findings compatible with a nonspecific interstitial disease/fibrosis.
- Findings most notable within the left lung base.
12/19/24 CTC PE study
- No CTA evidence for an acute pulmonary thromboembolus.
- Patchy pulmonary opacities in the RUL, RML, Both LLs most suggestive of mild pneumonia.
Peribronchial thickening also suspicious for bronchitis/bronchopneumonia.
Recommend a follow-up chest CT after treatment for reevaluation.
- Small bilateral pleural effusions.
- Pulmonary fibrosis with mild bilateral peripheral reticular interstitial opacities.
- Main pulmonary arterial dilatation indicating a degree of pulmonary hypertension.
- Stable mild fusiform dilatation of the ascending thoracic aorta.
- Large hiatal hernia.
Last hospitalist admission: Date of Admission: 01/02/24 - Date of Discharge: 01/04/24
Discharge Diagnosis/Procedures: #Symptomatic blood loss anemia
#Bile Gastritis on endoscopy
#Large hiatal hernia with possible para-esophageal component
#Recent diverticular bleed -- Hospitalized at [facility], no colonoscopy performed per patient history
ASSESSMENT & PLAN
Multilobar PNA per CT -s/p D6 PO Augmentin
- afebrile and WCC
- Observe
Acute on chr HFpEF
ASCVD/CAD/ischemic CM
S/P CABG x4
-TTE in July showed LVEF 50 to 55%, inferolateral and basilar wall hypokinesis
- IV Lasix 40 daily
- GDMT: MALU inhibitor, aspirin, high intensity statin; no DAPT as on Eliquis for AF/AFL
-Not currently on any standing loop diuretic therapy
Hx of atrial flutter (06/2023), known prior AFib
- No longer on Eliquis following GIB
- In sinus
Asymptomatic sinus node dysfunction HX
Moderate to severe :
- OP with Dr. Guerrero
DVT Px: LMWH
Code: Full code
IP TLM
--- NOTE | 2024-12-25 13:37 | CON.CAR ---
Consultation
Consultation Request
Date/Time Consultation Requested: 12/25/2024
Date/Time Consultation Performed: 12/25/2024
Requesting Provider: Dr. Stewart
Performing Provider: Dr. Blanc
Reason for Consultation: CHF
Medical History
-
Chief Complaint: SOB, weakness, dizziness
History of Present Illness:
84-year-old male (known to Dr. Guerrero, his primary Chart Snatcher) with coronary artery disease status-post CABG (2010), chronic HFrEF/ICM (EF 35-40%), paroxysmal atrial fibrillation/flutter (not on systemic anticoagulation due to bleeding risk;
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
1 day history of progressing dyspnea. The patient was hospitalized earlier this week with pneumonia. The patient denies chest pain, palpitations, or lower extremity swelling. He states that he got significantly dyspneic while at [facility] and had
to sit down 3 times to try to catch his breath.
Past Medical History
Past Medical History: Arrhythmias, CAD, HTN, Hypercholesterolemia, Valvular Disease and Other (as above)
Past Surgical History: Cardiac (CABG, PPM)
Social History
Tobacco: Non-Smoker
Family History
Family History: Reviewed & Not Pertinent
Allergies / Home Medications
Allergy/AdvReac Type Severity Reaction Status Date / Time
No Known Allergies Allergy Verified 02/02/24 09:01
�Medication �Instructions �Recorded �Confirmed �Type
multivitamin with folic acid 400 1 tab PO QPM Supplement 07/01/17 12/25/24 History
mcg tablet (Tab-A-Juan)
rosuvastatin 40 mg tablet (Crestor) 40 mg PO DAILY High cholesterol 07/01/17 12/25/24 History
vitamin E (dl, acetate) 45 mg (100 100 units PO QPM Supplement 07/01/17 12/25/24 History
unit) capsule
finasteride 5 mg tablet 5 mg PO DAILY prostate issues 04/11/21 12/25/24 History
lisinopril 30 mg tablet (Zestril) 30 mg PO DAILY@1200 Blood pressure 04/11/21 12/25/24 History
tramadol 50 mg tablet 50 mg PO BID 04/11/21 12/25/24 History
tamsulosin 0.4 mg capsule 0.4 mg PO QPM Urinary issue 04/12/21 12/25/24 History
aspirin 81 mg tablet,delayed 81 mg PO DAILY Blood Clot 11/19/23 12/25/24 History
release Prevention/Tx
amoxicillin 875 mg-potassium 1 tab PO BID 7 days #14 tabs 12/19/24 12/25/24 Rx
clavulanate 125 mg tablet
carvedilol 6.25 mg tablet (Coreg) 6.25 mg PO BID 12/19/24 12/25/24 History
pantoprazole 40 mg tablet,delayed 40 mg PO QPM 12/19/24 12/25/24 History
release
simethicone 125 mg tablet 125 mg PO DAILYPRN PRN gas 12/25/24 12/25/24 History
Review of Systems
-
History Source: Patient
All other systems: Negative unless noted
Physical Exam
Vital Signs
Temp Pulse Resp BP Pulse Ox
98.2 F 100 23 117/86 97
12/25/24 09:09 12/25/24 12:45 12/25/24 12:45 12/25/24 12:45 12/25/24 12:45
Lab Results
12/25/24 10:51
12/25/24 10:51
Troponin I Cancelled 12/25/24 12:45
Fbt-W-Duacxqakkne Pept 8160 pg/ml 12/25/24 10:51
Physical Exam
General: No Apparent Distress and Comfortable
HEENT: Normocephalic and Anicteric
Respiratory: Rhonchi
Cardiac: S1/S2, Regular Rhythm and Murmur (3-4/6 systolic)
Breast: N/A
GI: Soft
Rectal: Deferred by Provider
Musculoskeletal: No Clubbing, No Cyanosis and No Edema
Skin: Warm and Dry
Neuro: AO x 3
Psych: Calm
Impression / Plan
-
84-year-old male (known to Dr. Guerrero, his primary Chart Snatcher) with coronary artery disease status-post CABG (2010), chronic HFrEF/ICM (EF 35-40%), paroxysmal atrial fibrillation/flutter (not on systemic anticoagulation due to bleeding risk;
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
1 day history of progressing dyspnea. The patient was hospitalized earlier this week with pneumonia. The patient denies chest pain, palpitations, or lower extremity swelling. He states that he got significantly dyspneic [facility] at [facility] and had
to sit down 3 times to try to catch his breath.
Acute on chronic HFrEF/ICM (EF 35-40%):
- Progressive dyspnea over the past day; cardiac BNP 8160.
- Recommend Lasix 40 mg IV daily for now; the patient is not on a standing diuretic at home--will likely need one from this point forward.
- Continue metoprolol succinate ER and lisinopril.
- Further GDMT as blood pressure allows.
- Consider starting Farxiga, if no contraindication and if not cost-prohibitive.
Moderate to severe aortic stenosis:
- Likely contributing to presentation.
- Repeat echocardiogram tomorrow.
- Diuresis as above.
Coronary artery disease status-post CABG (2010):
- Appears to be currently stable; denies any anginal symptoms
- Continue aspirin, metoprolol succinate, and rosuvastatin.
Paroxysmal atrial fibrillation/flutter (not on systemic anticoagulation due to bleeding risk; declined Watchman):
- Currently stable; in sinus rhythm.
- Continue current dose of metoprolol succinate.
Sick sinus syndrome status-post Medtronic dual-chamber permanent pacemaker implantation (02/02/2024):
-Currently stable.
Hypertension:
- Continue current doses of lisinopril and metoprolol succinate.
Dyslipidemia:
- Continue rosuvastatin.
Pulmonary fibrosis:
- Chest x-ray with no acute findings.
- Supplemental oxygen; diuresis as above.
Data Reviewed
-
EKG: Tracing Personally Visualized and interpreted (EKG: Atrial flutter with 2-1 AV conduction, inferior infarct. Telemetry: Normal sinus rhythm.)
Medical Tests (Nuc Med, Echo etc): Report Reviewed by me (Transthoracic echocardiogram (02/09/2024): LVEF 35-40%, hypokinesis of the inferolateral steinberg and likely inferior and anterolateral steinberg; moderate aortic stenosis, peak/mean gradients 33/20,
ALAINA 0.9)
Labs: Labs Reviewed by me and Discussed with Patient
[2024-12-25 15:15] LABS: Troponin I 0.050 ng/ml
--- NOTE | 2024-12-25 16:00 | PTCARENOTE ---
Patient arrived to unit via stretcher accompanied by ED PCT. Ambulated to bed using SPC without difficulty. Patient admits to feeling more SOB with exertion. Denies CP at this time. Nursing assessment completed and as documented. Instructed use of
call allen and within reach, oriented to room/facility, care ongoing.
[2024-12-25] MEDS: THERAGRAN 1 TABLET PO (17:16)
[2024-12-25] MEDS: PROTONIX 40 MG PO (17:16)
[2024-12-25] MEDS: LOVENOX 40 MG SC (17:16)
[2024-12-25] MEDS: CRESTOR PO ×2 (17:16→17:23)
[2024-12-25] MEDS: FLOMAX 0.4 MG PO (17:16)
[2024-12-25 19:43] LABS: Procalcitonin < 0.05 ng/ml (0.0-0.25)
[2024-12-25 19:44] LABS: Troponin I 0.058 ng/ml
[2024-12-25] MEDS: ULTRAM 50 MG PO (19:53)
[2024-12-25] MEDS: COREG 6.25 MG PO (20:00)
[2024-12-26] VITALS (7 sets, daily range): BP systolic 103–149; BP diastolic 76–97; BMI 26.2
[2024-12-26 01:34] LABS: Troponin I 0.062 ng/ml
--- NOTE | 2024-12-26 05:11 | PTCARENOTE ---
JCARLOS notidied of increased trops throughout shift. No new orders at this time. Patient denies chest pain or SOB. Vitals stable.
[2024-12-26 06:40] LABS: Hematocrit 40.5 % (39.0-52.0); Hemoglobin 13.3 g/dL (13.0-18.0); Mean Corp Hgb Conc. 32.8 g/dL (33.0-37.0); Mean Corpuscular Volume 90.6 fL (80.0-94.0); Platelet Count 284 10^3/uL (130-400); Red Cell Dist. Width 13.2 % (11.5-14.5)
[2024-12-26 06:50] LABS: Blood Urea Nitrogen 17 mg/dl (9-20); Calcium 8.2 mg/dl (8.4-10.2); Carbon Dioxide 28 mmol/L (22-30); Chloride 102 mmol/L (98-107); Estimated Creatinine Clearance 55 ml/min; Glucose 96 mg/dl (70-99); HDL Cholesterol 27 mg/dl; LDL Cholesterol, Calculated 72 mg/dl; Magnesium 1.9 mg/dl (1.6-2.3); Potassium 4.5 mmol/L (3.5-5.1); Sodium 135 mmol/L (135-145); Very Low Density Lipoprotein 18 mg/dl (0-30); eGFR > 60.00
--- NOTE | 2024-12-26 08:50 | CARDSERVLU ---
Echocardiogram with Lumason completed after protocol screening completed. Allergies verified.
Patent IV site: __L AC___
IV site flushed with 0.9% NaCl pre and post administration.
Diluted bolus method utilized to enhance visualization of ventricular steinberg.
Total volume given: _3.5___ mL
Patient tolerated all procedures well without complications.
[2024-12-26] MEDS: ULTRAM 50 MG PO ×2 (10:10→19:51)
[2024-12-26] MEDS: COREG 6.25 MG PO ×2 (10:10→11:38)
[2024-12-26] MEDS: PROSCAR 5 MG PO (10:10)
[2024-12-26] MEDS: LASIX 40 MG IV (10:10)
[2024-12-26] MEDS: ASPIR LOW (ENTERIC COATED) 81 MG PO (10:10)
--- NOTE | 2024-12-26 10:45 | W.PN.CD ---
Addendum entered and electronically signed by Bandar Yung MD 12/27/24 16:19:
Flutter is typical
Original Note:
Today's Communication / Plan
-
Increase rate control meds, he was in fluter this admit with controlled rate and now he is faster
Review echo
Continue IV diuresis
Check cost of SGLT2-I, await case management input => add if cost OK
Impression / Plan
-
84-year-old male (known to Dr. Guerrero, his primary Jigsawyer) with coronary artery disease status-post CABG (2010), chronic HFrEF/ICM (EF 35-40%), paroxysmal atrial fibrillation/flutter (not on systemic anticoagulation due to bleeding risk;
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
1 day history of progressing dyspnea. The patient was hospitalized earlier this week with pneumonia. The patient denies chest pain, palpitations, or lower extremity swelling. He states that he got significantly dyspneic while at [employer] and had
to sit down 3 times to try to catch his breath.
Acute on chronic HFrEF/ICM (EF 35-40%):
- Progressive dyspnea over the past day; cardiac BNP 8160.
- Continue Lasix 40 mg IV daily for now; the patient is not on a standing diuretic at home--will likely need one from this point forward.
- Continue metoprolol succinate ER and lisinopril.
- Further GDMT as blood pressure allows.
- I put a consult to case management for cost of SGLT2-I => add if cost OK
Paroxysmal atrial fibrillation/flutter (not on systemic anticoagulation due to bleeding risk; declined Watchman):
- First EKG here was 2:1 Flutter
- Known to be paroxysmal
- Will need more rate control, options limited as he declined anticoagulation
Moderate to severe aortic stenosis:
Coronary artery disease status-post CABG (2010), continue secondary prevention, stable w/o angina
Sick sinus syndrome status-post Medtronic dual-chamber permanent pacemaker implantation (02/02/2024):
Hypertension
Dyslipidemia
Pulmonary fibrosis => no plans of AMIO
Subjective:
Feels much better
Physical Exam
Vital Signs/Labs
Vital Signs
Temp Pulse Resp BP Pulse Ox
97.3 F 107 18 131/90 97
12/26/24 07:40 12/26/24 07:40 12/26/24 07:40 12/26/24 07:40 12/26/24 07:40
12/25/24 12/26/24 12/27/24
06:59 06:59 06:59
Actual Weight 87.679 kg
12/26/24 05:55
12/26/24 05:55
Magnesium 1.9 mg/dl (1.6-2.3) 12/26/24 05:55
Triglycerides 92 mg/dl (10-149) 12/26/24 05:55
LDL Cholesterol, Calc 72 mg/dl 12/26/24 05:55
VLDL Cholesterol, Calc 18 mg/dl (0-30) 12/26/24 05:55
HDL Cholesterol 27 mg/dl 12/26/24 05:55
12/25/24
10:51
Yor-A-Ftdxxvnncii Pept 8160
LAB Results
12/25/24 12/25/24 12/25/24
10:51 12:45 19:07
Troponin I 0.050 H* Cancelled 0.058 H*
12/26/24
00:50
Troponin I 0.062 H*
Physical Exam
Constitutional: No acute distress
Cardiovascular: Rhythm/rate is irregular (rates over 100 bpm) and Systolic murmur present
Respiratory: Respiratory effort normal and Crackles Absent (at bases, good air entry)
GI: Soft and Distention absent
Neuro/Psych: AO x 3
Data Reviewed
-
Date of Service: December 26, 2024
[2024-12-26] MEDS: ZESTRIL 30 MG PO (11:38)
--- NOTE | 2024-12-26 12:20 | W.PN.HOSP.TC ---
Today's Communication/Plan
-
IV diuresis. Plan to transition to oral Lasix over the next 24 hours
Daily weights.
PT assessment.
Assessment / Plan
Assessment / Plan
Impression
Acute CHF reduced EF.
Paroxysmal atrial fibrillation/flutter.
Moderate to severe aortic stenosis.
CAD status post CABG 2010/ischemic cardiomyopathy
Sick sinus syndrome status post pacemaker.
Essential hypertension
Dyslipidemia
Pulmonary fibrosis
BPH
Plan:
Echo 12/26
1. Normal left ventricular size with moderately reduced systolic function. LVEF 30-35%.
2. Severe hypokinesis of the inferior, inferolateral, and anterolateral steinberg.
3. Moderate aortic stenosis (peak/mean 33/18 mmHg, ALAINA 1.2 cm²).
4. Mild to moderate mitral regurgitation.
5. Mildly dilated aortic root (SOV 4.1 cm).
6. Compared to prior echocardiogram in 2023, there is no significant change. Aortic root was likely underestimated on that study.
Acute CHF reduced EF
Suspected overall volume overload since recent admission for pneumonia.
Repeated echocardiogram as above.
Dyspnea improves with IV diuresis
Continue IV Lasix 40 mg daily with plan to transition to oral over the next 24 hours (not on diuretics prior to admission)
GDMT including lisinopril, Coreg. Consider SGLT2 inhibitor
Paroxysmal atrial fibrillation/flutter.
Rate controlled.
Continue Coreg.
Not a candidate for amiodarone given pulmonary fibrosis.
History of lower gastrointestinal hemorrhage, recurrent while on Eliquis. Currently not on anticoagulation.
Previously declined watchman
CAD.
Presented chest pain-free baseline ECG with no ischemia
Non-VT troponin elevation
Recent hospitalization with community-acquired pneumonia
Repeat chest x-ray with no acute changes
Completed course of antibiotics
Anticipated Discharge: 24 - 48 hours
Subjective/Interval History
-
Date of Service: December 26, 2024
Objective Data
-
Labs:
Laboratory Results
12/26/24
05:55
WBC 8.0
Hgb 13.3
Hct 40.5
Plt Count 284
Sodium 135
Potassium 4.5
Chloride 102
Carbon Dioxide 28
BUN 17
Creatinine 1.1
Glucose 96
Calcium 8.2 L
Vital Signs:
Vital Signs
Temp Pulse Resp BP Pulse Ox
98.0 F 106 20 134/98 98
12/26/24 11:28 12/26/24 11:38 12/26/24 11:28 12/26/24 11:38 12/26/24 11:28
I&O
12/25/24 12/26/24 12/27/24
06:59 06:59 06:59
Intake Total 1440 / 1440
Output Total 600 / 600
Balance 840 / 840
Physical Exam
-
General: Well Developed and No Apparent Distress
HEENT: Normocephalic, Atraumatic and Moist Mucous Membranes
Respiratory: Clear to Auscultation
Cardiac: Regular Rhythm and S1/S2; Negative Murmur, Rub or Gallop
GI: Soft, Nontender, Nondistended and Normal Bowel Sounds; Negative Organomegaly
Rectal: Deferred by Provider
Musculoskeletal: No Clubbing, No Cyanosis and No Edema
Skin: Negative Rash
Neuro: Nonfocal/Grossly Intact
--- NOTE | 2024-12-26 15:51 | CM ---
CM reviewed chart, patient seen bedside, initial assessment completed. Patient resides in a second floor apartment, 12 steps up to apartment. Patient has a cane for longer distances, denies VN/SNF hx. PCP Irlanda Diaz, pharmacy [facility], confirms
prescription coverage. Patient denies insecurities at home. Consult received for cost of Jardiance and Farxiga- CM spoke with Prescription plan through [employer]- per insurance, Farxiga 10 mg 30 day supply $572.19, Jardiance 10 mg 30 day supply $579.38-
update to patient who reports this is not affordable, update to Adult Care Provider. CM will continue to follow for all discharge planning needs.
Plan; home no needs
[2024-12-26] MEDS: LOVENOX 40 MG SC (17:25)
[2024-12-26] MEDS: FLOMAX 0.4 MG PO (17:25)
[2024-12-26] MEDS: PROTONIX 40 MG PO (17:25)
[2024-12-26] MEDS: CRESTOR 40 MG PO (17:25)
[2024-12-26] MEDS: THERAGRAN 1 TABLET PO (17:25)
[2024-12-26] MEDS: COREG 12.5 MG PO (19:51)
[2024-12-27 03:47] VITALS: BP 124/69
[2024-12-27 06:00] VITALS: BMI 26.1
[2024-12-27 07:50] VITALS: BP 125/83
[2024-12-27] MEDS: COREG 12.5 MG PO ×2 (09:06→19:42)
[2024-12-27] MEDS: LASIX 40 MG IV (09:06)
[2024-12-27] MEDS: ASPIR LOW (ENTERIC COATED) 81 MG PO (09:06)
[2024-12-27] MEDS: PROSCAR 5 MG PO (09:07)
[2024-12-27] MEDS: ULTRAM 50 MG PO ×2 (09:07→19:42)
[2024-12-27 09:19] LABS: Blood Urea Nitrogen 20 mg/dl (9-20); Calcium 8.8 mg/dl (8.4-10.2); Carbon Dioxide 28 mmol/L (22-30); Chloride 98 mmol/L (98-107); Estimated Creatinine Clearance 60 ml/min; Glucose 106 mg/dl (70-99); Potassium 4.5 mmol/L (3.5-5.1); Sodium 133 mmol/L (135-145); eGFR > 60.00
[2024-12-27 11:14] VITALS: BP 147/102
[2024-12-27] MEDS: ZESTRIL 30 MG PO (12:00)
--- NOTE | 2024-12-27 13:13 | W.PN.CD ---
Today's Communication / Plan
-
Cont IV diuresis
Start Eliquis
Monitor HR
Impression / Plan
-
84-year-old male (known to Dr. Guerrero, his primary Lumber Stacker Driver) with coronary artery disease status-post CABG (2010), chronic HFrEF/ICM (EF 35-40%), paroxysmal atrial fibrillation/flutter (not on systemic anticoagulation due to bleeding risk;
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
1 day history of progressing dyspnea. The patient was hospitalized earlier this week with pneumonia. The patient denies chest pain, palpitations, or lower extremity swelling. He states that he got significantly dyspneic while at [facility] and had
to sit down 3 times to try to catch his breath.
Acute on chronic HFrEF/ICM (EF 35-40%):
- Progressive dyspnea over the past day; cardiac BNP 8160.
- Continue Lasix 40 mg IV daily for now; the patient is not on a standing diuretic at home--will likely need one from this point forward.
- Continue metoprolol succinate ER and lisinopril.
- Further GDMT as blood pressure allows.
- I put a consult to case management for cost of SGLT2-I => not affordable > $500
Paroxysmal atrial fibrillation/flutter (not on systemic anticoagulation due to bleeding risk; declined Watchman):
- First EKG here was 2:1 Flutter
- Known to be paroxysmal
- Will need more rate control, options limited as he declined anticoagulation
- will start Eliquis and tentatively plan on DCCV in 30 days
Moderate to severe aortic stenosis:
Coronary artery disease status-post CABG (2010), continue secondary prevention, stable w/o angina
Sick sinus syndrome status-post Medtronic dual-chamber permanent pacemaker implantation (02/02/2024):
Hypertension
Dyslipidemia
Pulmonary fibrosis => no plans of AMIO
Subjective:
this morning feels unwell nausea chills some SOB
Physical Exam
Vital Signs/Labs
Vital Signs
Temp Pulse Resp BP Pulse Ox
98.2 F 102 18 147/102 97
12/27/24 11:14 12/27/24 12:00 12/27/24 11:14 12/27/24 12:00 12/27/24 12:38
12/26/24 12/27/24 12/28/24
06:59 06:59 06:59
Actual Weight 193 lb 4.8 oz 192 lb 1.6 oz
12/26/24 05:55
12/27/24 08:17
Magnesium 1.9 mg/dl (1.6-2.3) 12/26/24 05:55
Triglycerides 92 mg/dl (10-149) 12/26/24 05:55
LDL Cholesterol, Calc 72 mg/dl 12/26/24 05:55
VLDL Cholesterol, Calc 18 mg/dl (0-30) 12/26/24 05:55
HDL Cholesterol 27 mg/dl 12/26/24 05:55
12/25/24
10:51
Jev-N-Dxicpjjlqqz Pept 8160
LAB Results
12/25/24 12/25/24 12/25/24
10:51 12:45 19:07
Troponin I 0.050 H* Cancelled 0.058 H*
12/26/24
00:50
Troponin I 0.062 H*
Physical Exam
Constitutional: No acute distress
EENT: Anicteric
Cardiovascular: Rhythm/rate is irregular
Respiratory: Respiratory effort normal and Lungs clear to auscul.
GI: Soft
Neuro/Psych: AO x 3
Data Reviewed
-
Date of Service: December 27, 2024
Medical Decision Making: Reviewed Test Results
EKG: Tracing Personally Visualized and interpreted (a flutter)
Echo: Report Reviewed by me
Labs: Labs Reviewed by me
--- NOTE | 2024-12-27 13:19 | PN.CDI ---
CDI
- -
CDI:
Physician Documentation Request
Admit Date: 12/25/24 12:57
Dear Doctor,
Please review the following and provide your response in the progress notes.
Clinical Indicators:
- Patient admit with dyspnea on exertion for acute HFrEF with moderate to severe aortic stenosis
- 12/26 PN 'Non-W[place] troponin elevation'
Laboratory Tests
12/25/24 12/25/24 12/26/24
10:51 19:07 00:50
Troponin I 0.050 H* 0.058 H* 0.062 H*
Please clarify the following regarding the documented elevated troponins:
Non-ischemic myocardial injury
Type II [place] due to demand ischemia from acute HFrEF
Other (please specify)
Use of terms such as suspected, likely, concern for, or probable (associated with a specific diagnosis that is being evaluated, monitored, or treated as if it exists) are acceptable and can be coded in the inpatient setting, when documented at the
time of discharge.
Thank you,
Mari Duque RN
CDI Specialist
Please use your independent medical judgment in providing your response.
--- NOTE | 2024-12-27 13:25 | PN.CDI ---
CDI
- -
CDI:
Physician Documentation Request
Admit Date: 12/25/24 12:57
Dear Cardiology,
Please review the following and provide your response in the progress notes.
Clinical Indicators:
- Patient admit for dyspnea on exertion due to acute on chronic HFrEF
- 12/27 Cardiology 'Paroxysmal atrial fibrillation/flutter'
- First EKG here was 2:1 Flutter
- will start Eliquis and tentatively plan on DCCV in 30 days
- 12/25 EKG 'Atrial flutter with 2:1 A-V conduction'
- 'Atrial flutter has replaced electronic atrial pacemaker'
- Atrial rate 204 bpm
If possible, please provide further specificity regarding atrial flutter, such as:
Typical Atrial Flutter - Type I: Classic or common atrial flutter, Rate is 240-340 beats/min. Usually responds to atrial pacing.
Atypical Atrial Flutter - Type II: Less common and more unstable. Rate is 340-440 beats/min. Less responsive to atrial pacing.
Other - please specify
Use of terms such as suspected, likely, concern for, or probable (associated with a specific diagnosis that is being evaluated, monitored, or treated as if it exists) are acceptable and can be coded in the inpatient setting, when documented at the
time of discharge.
Thank you,
Mari Duque RN
CDI Specialist
Please use your independent medical judgment in providing your response.
--- NOTE | 2024-12-27 14:33 | W.PN.HOSP.TC ---
Today's Communication/Plan
-
IV diuresis
Eliquis.
Assessment / Plan
Assessment / Plan
Impression
Acute CHF reduced EF.
Paroxysmal atrial fibrillation/flutter.
Moderate to severe aortic stenosis.
CAD status post CABG 2010/ischemic cardiomyopathy
Sick sinus syndrome status post pacemaker.
Essential hypertension
Dyslipidemia
Pulmonary fibrosis
BPH
Plan:
Echo 12/26
1. Normal left ventricular size with moderately reduced systolic function. LVEF 30-35%.
2. Severe hypokinesis of the inferior, inferolateral, and anterolateral steinberg.
3. Moderate aortic stenosis (peak/mean 33/18 mmHg, ALAINA 1.2 cm²).
4. Mild to moderate mitral regurgitation.
5. Mildly dilated aortic root (SOV 4.1 cm).
6. Compared to prior echocardiogram in 2023, there is no significant change. Aortic root was likely underestimated on that study.
Acute CHF reduced EF
Suspected overall volume overload since recent admission for pneumonia.
Repeated echocardiogram as above.
Dyspnea improves with IV diuresis
Continue IV Lasix 40 mg daily with plan to transition to oral over the next 24 hours (not on diuretics prior to admission)
GDMT including lisinopril, Coreg. Consider SGLT2 inhibitor
Paroxysmal atrial fibrillation/flutter.
Rate controlled.
Continue Coreg.
Not a candidate for amiodarone given pulmonary fibrosis.
History of lower gastrointestinal hemorrhage, recurrent while on Eliquis. Currently not on anticoagulation.
Previously declined watchman
With consideration of DCCV in 30 days, will attempt to anticoagulate with Eliquis
CAD.
Presented chest pain-free baseline ECG with no ischemia
Non-CA troponin elevation
Recent hospitalization with community-acquired pneumonia
Repeat chest x-ray with no acute changes
Completed course of antibiotics
Anticipated Discharge: 24 - 48 hours
Subjective/Interval History
-
Date of Service: December 27, 2024
Objective Data
-
Labs:
Laboratory Results
12/27/24
08:17
Sodium 133 L
Potassium 4.5
Chloride 98
Carbon Dioxide 28
BUN 20
Creatinine 1.0
Glucose 106 H
Calcium 8.8
Vital Signs:
Vital Signs
Temp Pulse Resp BP Pulse Ox
98.2 F 102 18 147/102 97
12/27/24 11:14 12/27/24 12:00 12/27/24 11:14 12/27/24 12:00 12/27/24 12:38
I&O
12/26/24 12/27/24 12/28/24
06:59 06:59 06:59
Intake Total 1440 / 1440 1380 / 1380
Output Total 600 / 600
Balance 840 / 840 1380 / 1380
Physical Exam
-
General: Well Developed and No Apparent Distress
HEENT: Normocephalic, Atraumatic and Moist Mucous Membranes
Respiratory: Clear to Auscultation
Cardiac: Regular Rhythm and S1/S2; Negative Murmur, Rub or Gallop
GI: Soft, Nontender, Nondistended and Normal Bowel Sounds; Negative Organomegaly
Rectal: Deferred by Provider
Musculoskeletal: No Clubbing, No Cyanosis and No Edema
Skin: Negative Rash
Neuro: Nonfocal/Grossly Intact
[2024-12-27 15:19] VITALS: BP 119/78
[2024-12-27] MEDS: CRESTOR 40 MG PO (17:03)
[2024-12-27] MEDS: FLOMAX 0.4 MG PO (17:04)
[2024-12-27] MEDS: THERAGRAN 1 TABLET PO (17:05)
[2024-12-27] MEDS: PROTONIX 40 MG PO (17:05)
[2024-12-27] MEDS: ELIQUIS 5 MG PO (19:42)
[2024-12-27 19:50] VITALS: BP 127/85
[2024-12-27 23:39] VITALS: BP 124/90
--- NOTE | 2024-12-28 02:43 | DOWNTIME ---
There was a [employer] Client [employer] Downtime on 12/28/2024 from 0100 to 12/28/2024 at 0235. Downtime documentation of patient's care, including medication administrations, has been reconciled in the electronic record per guidelines. Refer to the
patient's paper chart under the miscellaneous tab to see printed paper medication records and downtime forms.
[2024-12-28 03:24] VITALS: BP 119/73
[2024-12-28 06:00] VITALS: BMI 25.5
[2024-12-28 07:48] LABS: Blood Urea Nitrogen 20 mg/dl (9-20); Calcium 8.4 mg/dl (8.4-10.2); Carbon Dioxide 30 mmol/L (22-30); Chloride 99 mmol/L (98-107); Estimated Creatinine Clearance 60 ml/min; Glucose 105 mg/dl (70-99); Potassium 4.1 mmol/L (3.5-5.1); Sodium 132 mmol/L (135-145); eGFR > 60.00
[2024-12-28 07:53] VITALS: BP 130/79
[2024-12-28] MEDS: LASIX 40 MG IV (09:07)
[2024-12-28] MEDS: ULTRAM 50 MG PO (09:08)
[2024-12-28] MEDS: ASPIR LOW (ENTERIC COATED) 81 MG PO (09:08)
[2024-12-28] MEDS: COREG 12.5 MG PO (09:08)
[2024-12-28] MEDS: ELIQUIS 5 MG PO (09:08)
[2024-12-28] MEDS: PROSCAR 5 MG PO (09:08)
--- NOTE | 2024-12-28 09:10 | W.PN.CD ---
Today's Communication / Plan
-
Cont Eliquis CBC in 1 week --> plan for DCCV in 30 days
Cont lasix 40 mg MWF
He should weigh himself daily and let office know if he gains 3-5 lbs in a day/wk
We will sign off please call with questions.
Impression / Plan
-
84-year-old male (known to Dr. Guerrero, his primary Funeral Pre Arrangement Specialist) with coronary artery disease status-post CABG (2010), chronic HFrEF/ICM (EF 35-40%), paroxysmal atrial fibrillation/flutter (not on systemic anticoagulation due to bleeding risk;
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
1 day history of progressing dyspnea. The patient was hospitalized earlier this week with pneumonia. The patient denies chest pain, palpitations, or lower extremity swelling. He states that he got significantly dyspneic while at [facility] and had
to sit down 3 times to try to catch his breath.
Acute on chronic HFrEF/ICM (EF 35-40%):
- Progressive dyspnea over the past day; cardiac BNP 8160.
- last dose lasix IV 40 mg; MWF Lasix 40 mg going fwd
- Continue metoprolol succinate ER and lisinopril.
- Further GDMT as blood pressure allows.
- I put a consult to case management for cost of SGLT2-I => not affordable > $500
Paroxysmal atrial fibrillation/flutter (not on systemic anticoagulation due to bleeding risk; declined Watchman):
- First EKG here was 2:1 Flutter
- Known to be paroxysmal
- Will need more rate control, options limited as he declined anticoagulation
- will start Eliquis and tentatively plan on DCCV in 30 days
Moderate to severe aortic stenosis:
Coronary artery disease status-post CABG (2010), continue secondary prevention, stable w/o angina
Sick sinus syndrome status-post Medtronic dual-chamber permanent pacemaker implantation (02/02/2024):
Hypertension
Dyslipidemia
Pulmonary fibrosis => no plans of AMIO
Subjective:
Feeling improved ready to go home
Physical Exam
Vital Signs/Labs
Vital Signs
Temp Pulse Resp BP Pulse Ox
97.7 F 103 18 130/79 95
12/28/24 07:53 12/28/24 07:53 12/28/24 07:53 12/28/24 07:53 12/28/24 07:53
12/27/24 12/28/24 12/29/24
06:59 06:59 06:59
Actual Weight 192 lb 1.6 oz 187 lb 9 oz
12/26/24 05:55
12/28/24 06:47
Magnesium 1.9 mg/dl (1.6-2.3) 12/26/24 05:55
Triglycerides 92 mg/dl (10-149) 12/26/24 05:55
LDL Cholesterol, Calc 72 mg/dl 12/26/24 05:55
VLDL Cholesterol, Calc 18 mg/dl (0-30) 12/26/24 05:55
HDL Cholesterol 27 mg/dl 12/26/24 05:55
12/25/24
10:51
Zoq-A-Lmefytcaxfz Pept 8160
LAB Results
12/25/24 12/25/24 12/25/24
10:51 12:45 19:07
Troponin I 0.050 H* Cancelled 0.058 H*
12/26/24
00:50
Troponin I 0.062 H*
Physical Exam
Constitutional: No acute distress
EENT: Anicteric
Cardiovascular: Pedal edema is absent, Rhythm/rate is irregular and Systolic murmur present
Respiratory: Respiratory effort normal and Lungs clear to auscul.
GI: Soft
Neuro/Psych: AO x 3
Data Reviewed
-
Date of Service: December 28, 2024
Medical Decision Making: Reviewed Test Results
EKG: Tracing Personally Visualized and interpreted (a flutter)
Echo: Report Reviewed by me
Labs: Labs Reviewed by me
[2024-12-28 11:12] VITALS: BP 106/71
[2024-12-28] MEDS: ZESTRIL 30 MG PO (11:52)
--- NOTE | 2024-12-28 14:15 | W.DS.TRANS ---
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
-
Discharge Instructions:
Sleep Apnea Risk Intermediate
Discharge Diagnosis/Procedures Acute CHF reduced EF.
Paroxysmal atrial fibrillation/flutter.
Moderate to severe aortic stenosis.
CAD status post CABG 2010/ischemic
cardiomyopathy
Sick sinus syndrome status post pacemaker.
Essential hypertension
Dyslipidemia
Pulmonary fibrosis
BPH
Diet 2 Gram Sodium
Instructions:
Stand-Alone Forms:
Changes to Home Medications: Yes
Discharge Medications:
DC Medications w/original date entered in [facility]
multivitamin with folic acid 400 mcg tablet (Tab-A-Juan) 1 tab PO QPM Supplement 07/01/17
rosuvastatin 40 mg tablet (Crestor) 40 mg PO DAILY High cholesterol 07/01/17
vitamin E (dl, acetate) 45 mg (100 unit) capsule 100 units PO QPM Supplement 07/01/17
finasteride 5 mg tablet 5 mg PO DAILY prostate issues 04/11/21
lisinopril 30 mg tablet (Zestril) 30 mg PO DAILY@1200 Blood pressure 04/11/21
tramadol 50 mg tablet 50 mg PO BID Pain 04/11/21
tamsulosin 0.4 mg capsule 0.4 mg PO QPM Urinary issue 04/12/21
aspirin 81 mg tablet,delayed release 81 mg PO DAILY Blood Clot Prevention/Tx 11/19/23
pantoprazole 40 mg tablet,delayed release 40 mg PO QPM Gastrointestinal Issue 12/19/24
simethicone 125 mg tablet 125 mg PO DAILYPRN PRN gas 12/25/24
apixaban 5 mg tablet (Eliquis) 5 mg PO BID #60 tabs 12/28/24
carvedilol 12.5 mg tablet 12.5 mg PO BID #60 tabs 12/28/24
furosemide 40 mg tablet (Lasix) See Rx Instructions .Route .COMPLEX #30 tabs 12/28/24
Home Medication Changes
Coreg increased, Eliquis imitated.
Lasix initiated
Pending Results: No
--- NOTE | 2024-12-28 14:21 | HFEDUCATE ---
84 yo male admitted with progressing CRISTINA . Past medical history includes CAD, CABG 2010, chronic HfrEF/ICM, paroxysmal atrial Fib/flutter, PPM, mod to severe , HTN, dyslipidemia, pulm fibrosis and BPH. His current ejection fraction by
echocardiogram is 35-40%. He reports following a low sodium diet and a 48oz fluid restriction per day. He does have a scale at home, weighs himself every 3 days.
I provided HF education and discussed the usual lifestyle recommendations. I advised he continue to follow a low sodium diet of 6736-0961 mg. per day, and limit it to 500-750 mg. per meal. I advised a 48oz fluid restriction per day and discussed
ways to achieve the recommendations. I also advised him to weigh himself daily instead of every 3 days and to monitor for any slight weight gain. I explained how to monitor for exacerbations. We discussed other alarming symptoms to watch for and
when to notify his provider. We discussed need for medications.
Recommendations:
Continue all HF recommended medications as ordered on discharge.
Limit sodium intake to <500-750 mg per meal.
Limit fluid intake to <48 oz per day.
Daily weights and contact provider for any weight gain >3lbs in one day or 5lbs in one week.
Follow up with provider as recommended.
--- NOTE | 2024-12-28 14:39 | CM ---
CM reviewed chart, patient seen bedside, for discharge today. Patient denies need for VN upon discharge, confirms transportation home. IMM verbally reviewed, provided with copy, placed in chart. CM will continue to follow for all discharge planning
needs.
Plan; home no needs
== END 2024-12-28 15:04 | disposition home or self-care (01) | DRG 291 ==
LOC: 4 WEST ACU 12:57
PROVIDERS: Physician Assistant Medical; ADMITTING PHYSICIAN Internal Medicine; ATTENDING PHYSICIAN Internal Medicine; CONSULT PHYSICIAN Internal Medicine; EMERGENCY PHYSICIAN Student in an Organized Health Care Education/Training Program; FAMILY PHYSICIAN Family Medicine
DX: I11.0 Hypertensive heart disease with heart failure (principal); I50.23 Acute on chronic systolic (congestive) heart failure; I48.3 Typical atrial flutter; I25.10 Atherosclerotic heart disease of native coronary artery without angina pectoris; I25.5 Ischemic cardiomyopathy; I34.0 Nonrheumatic mitral (valve) insufficiency; I35.0 Nonrheumatic aortic (valve) stenosis; E78.00 Pure hypercholesterolemia, unspecified; I48.0 Paroxysmal atrial fibrillation; I49.5 Sick sinus syndrome; N40.0 Benign prostatic hyperplasia without lower urinary tract symptoms; K21.9 Gastro-esophageal reflux disease without esophagitis; J84.10 Pulmonary fibrosis, unspecified; R79.89 Other specified abnormal findings of blood chemistry; I25.2 Old myocardial infarction; Z95.1 Presence of aortocoronary bypass graft; Z95.0 Presence of cardiac pacemaker; Z87.01 Personal history of pneumonia (recurrent); Z79.899 Other long term (current) drug therapy; Z79.82 Long term (current) use of aspirin; Z79.01 Long term (current) use of anticoagulants
CPT/HCPCS: 71046; 80048; 80053; 80061; 83735; 83880; 84145; 84484; 85025; 85027; 93005; 93306; 99285; Q9950

== ENCOUNTER 2024-12-29 01:28 | Emergency (ER) | payer OTHER, SELFPAY ==
[2024-12-29 01:33] VITALS: BP 126/78
[2024-12-29 01:52] VITALS: BP 128/70
[2024-12-29 01:56] VITALS: BMI 25.7
[2024-12-29 02:04] VITALS: BP 94/69
--- NOTE | 2024-12-29 02:04 | ED.GENMED ---
History of Present Illness
<Kim Guerin PA-C - Last Filed: 12/29/24 05:10>
General
Chief Complaint: Breathing Problem
Source: patient
Exam Limitations: none
Time Seen by Provider: 12/29/24 01:57
Nursing documentation reviewed up to this point in time: agreed with
History of Present Illness
History of Present Illness:
Note:
CHIEF COMPLAINT(S)
Shortness of breath upon exertion following recent hospital discharge
HISTORY OF PRESENT ILLNESS
The patient is an 84-year-old male with past medical history of aortic stenosis, CHF, A-fib, coronary artery disease, who was recently discharged from the hospital after being treated for pulmonary edema. He reports that upon returning home, he
experienced significant shortness of breath after minimal exertion, such as walking up 12 steps, which occurred around 4 PM, the day after being discharged. Since discharge, the patient has had minimal exertion due to hospitalization, only walking
with a walker to the bathroom. He was discharged at 4 PM yesterday and then he went to [facility] which is when his symptoms seem to get worse. Previously, the patient had a heart bypass surgery in 2010 and has been on and off anticoagulation therapy
due to episodes of bleeding related to diverticulosis. He subsequently resumed Eliquis during his admission as well as he started Lasix for the first time. The patient experienced nausea on Thursday, which led to an extended hospital stay. He
reports cold sweats but denies any chest pain or leg swelling. The patient mentions using a cane to walk a block and a recommended walker for mobility around the house due to significant shortness of breath upon standing and walking, diagnosed as
exertional shortness of breath. He denies chest pain, abdominal pain, nausea, vomiting, fainting spells. He denies dizziness, lightheadedness.
PAST MEDICAL AND SURGICAL HISTORY
The patient underwent a bypass surgery in 2010 and was recently treated for pulmonary edema with diuretics. A history of bleeding due to diverticulosis has also been acknowledged.
SOCIAL DETERMINANTS AFFECTING HEALTH
The patient lives alone but has family members and a landlord nearby who can provide assistance.
MEDICATIONS
Eliquis, Lasix, lisinopril, pantoprazole, rosuvastatin, simethicone, tamsulosin, tramadol
REVIEW OF SYSTEMS
- General: Fatigue, shortness of breath upon exertion, feeling unwell.
- Respiratory: No cough; significant shortness of breath with exertion.
- Gastrointestinal: Nausea; no vomiting or abdominal pain.
- Cardiovascular: No chest pain or leg swelling reported.
- Neurological: Reports of cold sweats; denies any neurological deficits.
PHYSICAL EXAM
General: Alert, no acute distress.
Skin: Warm, dry.
Head: Normocephalic, atraumatic.
Neck: Supple, trachea midline.
Eye, Ears, Nose, Mouth and Throat: Oral mucosa moist.
Cardiovascular: Normal peripheral perfusion, No edema. Systolic murmur noted. Regular rate.
Respiratory: Respirations are non-labored, patient is satting 100% on room air contrary to EMS report. Patient did do a walking pulse ox test and did not drop below 92%.
Gastrointestinal: Abdomen nondistended.
Neurological: Alert and oriented to person, place, time, and situation, No focal neurological deficit observed.
Psychiatric: Cooperative, appropriate mood & affect.
PROBLEM LIST
Acute Problems:
- Exertional shortness of breath.
- Pulmonary edema (recently treated).
- Nausea.
Chronic Problems:
- History of coronary artery disease with previous bypass surgery.
- History of bleeding due to diverticulosis.
PLAN
- Conduct a walking pulse oximetry test to assess oxygen saturation levels during exertion.
- Review chest x-ray findings to evaluate current pulmonary status.
- Consider potential readmission if condition does not improve with current outpatient management and continue monitoring for changes in breathing or new symptoms.
DIFFERENTIAL DIAGNOSIS
The Differential Diagnosis includes, in no particular order and is not limited to:
1. Congestive heart failure exacerbation
2. Chronic obstructive pulmonary disease (COPD) exacerbation
3. Pulmonary embolism
4. Pneumonia
5. Anemia
6. Arrhythmia
7. Deconditioning
8. Myocardial ischemia
9. Pulmonary hypertension
10. Medication side effects
CHART REVIEW
- Reviewed patient discharge instructions from yesterday 12/28/2024, patient seen for acute CHF with reduced ejection fraction and PAF, he was instructed to follow-up with his primary after. Patient takes 40 mg of Lasix on Thursday, Thursday, and
Thursday
- Reviewed discharge summary from 12/28/2024 patient was seen for acute CHF he was found to be in acute heart failure and he was requiring IV diuresis; prior to admission, patient was not on diuretics; patient was also initiated on Eliquis during
this admission with his paroxysmal A-fib
MDM/DISPOSITION
The patient is an 84-year-old male with past medical history of aortic stenosis, CHF, A-fib, coronary artery disease, presents to the ER today with concerns of exertional shortness of breath. At rest, he feels well. He called EMS from home he
reportedly noted his pulse ox to be 87% however he has been satting in the 90s to 100% on room air here. Patient also completed walking pulse ox test and did not become hypoxic. His lungs are clear to auscultation bilaterally, he was noted to be
in a flutter here. He does have a history of PA PAF. Reviewed pacemaker report, there is evidence of patient's been in out of A-fib fib/a flutter however no evidence of V. tach. Labs reviewed, patient has no leukocytosis. His troponin and proBNP
are trending down. His chest CT today showed no evidence of pulmonary embolism, no evidence of clear infiltrate, no evidence of pleural effusion. No indication for readmission at this time. Patient will be discharged with CHF hotline. Discussed
return precautions. Patient stable for discharge.
Past History
Miguel Ángellt;Kim Guerin PA-C - Last Filed: 12/29/24 05:10>
Past History
ED Past Medical History: Arrthythmia, CAD, CHF, COPD, HTN, Hypercholesterolemia, MD, Valvular disease, Other (Hernia) and Other (BPH)
ED Past Surgical History: Cardiac (CABG) and Other
Social History
Tobacco: Former smoker (occasional Cigar)
Alcohol: Occasional
Drug: None
Personal:
Living: alone
Family History
Family History: Early CAD
Review of Systems
<Kim Guerin PA-C - Last Filed: 12/29/24 05:10>
Review of Systems
All Other Systems: ROS reviewed and negative except as documented in HPI and ROS
Phy Exam
<KIMBERLEE Summers Last Filed: 12/29/24 05:10>
Physical Exam
Physical Exam:
see hpi
Scores
<KIMBERLEE Summers Last Filed: 12/29/24 05:10>
Heart Failure Risk
Heart Failure Risk Score: Yes
History of Stroke or TIA: No
History of intubation for respiratory distress: No
Heart rate on ED arrival >/= 110: No
SaO2 <90% on arrival on room air: No
HR >/=110 during 3min walk test (or too ill to perform test): No
ECG has acute ischemic changes: No
Urea >/=12mmol/L (BUN 33.6mg/dL): No
Serum CO2>/=35mmol/L: No
Troponin I or T elevated to MD Level (0.4mg/dL): No
NT-proBNP >/=5,000ng/L (5,000pg/ml): No
HF Risk Score: 0
Admission Status: LOW RISK 2.8% Consider discharge to home with f/u visit to PCP/[employer]
Course
<KIMBERLEE Summers Last Filed: 12/29/24 05:10>
Orders/Labs/Results
Orders:
Orders
12/29/24 01:34
Electrocardiogram (*1) Urgent
Reason for Study: Other
Other Reason for Exam: Respiratory Distress
Cardiac Monitoring- Treatment ONCE
EKG- Treatment ONCE
IV Insert/Care/Rem.- Treatment PRN
CR Chest - 2 Views Urgent
Comment:
Reason For Exam: respiratory distress
O2 Therapy [RESP] Urgent
Titrate/Wean O2 to maintain O2 sat greater than (%): 93
Special Instructions: TO MAINTAIN CONTINUOUS O2 SATS >/= 93%
Pulse Ox/cont/shift [RESP] Urgent
Quantity: 1
Special Instructions: continuous pulse ox
12/29/24 01:35
Interrogate Pacemaker- Treatment ONCE
12/29/24 01:41
Complete Blood Count/With Diff Urgent
Comprehensive Metabolic Panel Urgent
12/29/24 02:24
NT-proBNP Urgent
Troponin I Urgent
12/29/24 03:22
Furosemide [Lasix] 40 mg IV NOW STA
12/29/24 03:34
CT Chest PE Study Urgent
Comment:
Reason For Exam: shortness of breath
Abnormal Lab Results
12/29/24 12/29/24
01:41 02:24
RBC 4.50 L 10^6/uL
(4.70-6.10)
Absolute Neuts (auto) 8.0 H 10^3/uL
(1.4-6.5)
Absolute Monos (auto) 0.8 H 10^3/uL
(0.1-0.6)
Neutrophils % 79.3 H %
(42.2-75.2)
Lymphocytes % 11.7 L %
(20.5-51.1)
BUN 29 H mg/dl
(9-20)
Glucose 121 H mg/dl
(70-99)
Troponin I 0.041 H* ng/ml
12/29/24 01:41
12/29/24 01:41
Vital Signs
Initial and Last Documented VS:
Initial Vital Signs
Pulse Resp BP Pulse Ox
101 18 126/78 96
12/29/24 01:33 12/29/24 01:33 12/29/24 01:33 12/29/24 01:33
Last Documented Vital Signs
Temp Pulse Resp BP Pulse Ox
98.3 F 84 27 117/63 99
12/29/24 01:52 12/29/24 04:47 12/29/24 04:47 12/29/24 05:00 12/29/24 05:02
<Chelsi Garcia, DO - Last Filed: 12/29/24 04:52>
Orders/Labs/Results
Orders:
Orders
12/29/24 01:34
Electrocardiogram (*1) Urgent
Reason for Study: Other
Other Reason for Exam: Respiratory Distress
Cardiac Monitoring- Treatment ONCE
EKG- Treatment ONCE
IV Insert/Care/Rem.- Treatment PRN
CR Chest - 2 Views Urgent
Comment:
Reason For Exam: respiratory distress
O2 Therapy [RESP] Urgent
Titrate/Wean O2 to maintain O2 sat greater than (%): 93
Special Instructions: TO MAINTAIN CONTINUOUS O2 SATS >/= 93%
Pulse Ox/cont/shift [RESP] Urgent
Quantity: 1
Special Instructions: continuous pulse ox
12/29/24 01:35
Interrogate Pacemaker- Treatment ONCE
12/29/24 01:41
Complete Blood Count/With Diff Urgent
Comprehensive Metabolic Panel Urgent
12/29/24 02:24
NT-proBNP Urgent
Troponin I Urgent
12/29/24 03:22
Furosemide [Lasix] 40 mg IV NOW STA
12/29/24 03:34
CT Chest PE Study Urgent
Comment:
Reason For Exam: shortness of breath
Abnormal Lab Results
12/29/24 12/29/24
01:41 02:24
RBC 4.50 L 10^6/uL
(4.70-6.10)
Absolute Neuts (auto) 8.0 H 10^3/uL
(1.4-6.5)
Absolute Monos (auto) 0.8 H 10^3/uL
(0.1-0.6)
Neutrophils % 79.3 H %
(42.2-75.2)
Lymphocytes % 11.7 L %
(20.5-51.1)
BUN 29 H mg/dl
(9-20)
Glucose 121 H mg/dl
(70-99)
Troponin I 0.041 H* ng/ml
12/29/24 01:41
12/29/24 01:41
Vital Signs
Initial and Last Documented VS:
Initial Vital Signs
Pulse Resp BP Pulse Ox
101 18 126/78 96
12/29/24 01:33 12/29/24 01:33 12/29/24 01:33 12/29/24 01:33
Last Documented Vital Signs
Temp Pulse Resp BP Pulse Ox
98.3 F 84 27 117/63 99
12/29/24 01:52 12/29/24 04:47 12/29/24 04:47 12/29/24 05:00 12/29/24 05:02
Miguel Ángellt;Kim Guerin PA-C - Last Filed: 12/29/24 05:10>
*Pulse Oximetry
SaO2: 95
Oxygen Mode of Delivery: Room air
Patient hypoxic: no
*Critical Care Note
Total Time (30-74mins, 75-104mins- exclusive of procedures): Not Applicable
ED Attending Note
<Kim Guerin PA-C - Last Filed: 12/29/24 05:10>
-
Portions of this chart may have been created with voice recognition software.� Occasional wrong word or��sound alike� substitutions may have occurred due to the inherent limitations of voice recognition software.
<Chelsi Garcia DO - Last Filed: 12/29/24 04:52>
ED Attending Note
Patient seen and examined by attending physician: Yes
I performed a history and physical exam of patient and discussed management with resident, I reviewed resident's note and agree with documented findings and plan of care.: Yes
ED Attending Note:
This is an 84-year-old gentleman who resides at home. He has history of moderate aortic stenosis, cardiomyopathy, CHF, pulmonary fibrosis, sick sinus syndrome/pacemaker, A-fib/flutter, chronic dyspnea on exertion, prior history of GI bleed.
Recently evaluated in this ED December 19 with complaints of cough for 10 days, hemoptysis, shortness of breath, found to have pneumonia. PE study was negative for PE but showed patchy infiltrates consistent with pneumonia. Discharged to home with a
1 week course of Augmentin as well as Z-Riley. Cough and hemoptysis resolved but he continued with somewhat worsening dyspnea on exertion with severe episode of dyspnea on exertion while at a local store prompting return to the ED and he was admitted
December 25 with dyspnea on exertion, treated for acute CHF. Also found to have atrial flutter. Coreg dose was increased, diuresed with Lasix and discharged to home yesterday with initiation of Eliquis for atrial A-fib/flutter and prescription for
Lasix 40 mg to take Thursday.
Patient states upon returning home and walking up 12 steps he developed severe shortness of breath. He does note some chronic dyspnea on exertion, chronic shortness of breath with walking up his steps but not to that degree. He denies chest pain,
no dizziness nor lightheadedness. He denies black or tarry stools.
He has had some intermittent diaphoresis which has been an ongoing issue but no fever.
84-year-old gentleman appears his stated age, awake and alert, pleasant, appears in no acute distress. Able to speak in full sentences without dyspnea. No cough appreciated.
Heart is irregularly irregular at 70s to 80s.
Lungs with scant bibasilar Rales.
Extremities without clubbing or cyanosis nor edema. Peripheral pulses are full and equal.
Thus far labs are reassuring with normal CBC. CMP is unremarkable, creatinine 1.3, has trended up minimally.
Troponin 0.041, improving from previous.
BNP 3070, trending down from previous at 8160 December 25.
Chest x-ray shows haziness left base overall similar to previous film December 25.
EKG shows atrial flutter with controlled ventricular response, no acute ST-T wave abnormalities.
Patient has successfully performed walk test without hypoxia. He is noted to have moderate dyspnea without hypoxia. And according to patient dyspnea on exertion has been an ongoing issue for at least the past 3 years.
Concern for persistent CHF, concern for exacerbation of pulmonary fibrosis, concern for recurrent pneumonia. As patient in atrial flutter, Eliquis just recently resumed during this hospitalization there is also some concern for PE thus we will
check PE study.
Will give an IV dose of Lasix for what I suspect is continued mild CHF.
An element of dyspnea on exertion may be an element of deconditioning as well.
04:55
CT of the chest shows no evidence of PE.
Patient has been ambulated to and from the bathroom to void without dyspnea nor hypoxia.
As above has tolerated 3-minute walk test without hypoxia.
Will discharge to home with plan for prompt follow-up with principal bioinformatics specialist. He has been referred to our heart failure discharge pathway.
Return precautions discussed.
Discharge Plan
Departure
Patient Disposition: Home (Routine Discharge)
Patient with high blood pressure during this ER visit?: No
Condition: Good
Discharge Problem:
Exertional shortness of breath
Instructions: Shortness of Breath (Dyspnea) (DC), *CBC Heart Failure Instructions
Prescriptions:
No Action
rosuvastatin [Crestor] 40 MG tablet
40 mg PO DAILY
vitamin E (dl, acetate) 100 UNITS capsule
100 units PO QPM
multivitamin with folic acid [Tab-A-Juan] 1 TABLET tablet
1 tab PO QPM
tramadol 50 MG tablet
50 mg PO BID
lisinopril [Zestril] 30 MG tablet
30 mg PO DAILY@1200
finasteride 5 MG tablet
5 mg PO DAILY
tamsulosin 0.4 MG capsule
0.4 mg PO QPM
aspirin 81 mg Tablet,Delayed Release (Dr/Ec)
81 mg PO DAILY
pantoprazole 40 mg tablet,delayed release (DR/EC)
40 mg PO QPM
simethicone 125 mg Tablet
125 mg PO DAILYPRN PRN (Reason: gas)
carvedilol 12.5 mg Tablet
12.5 mg PO BID Qty: 60 0RF
Eliquis 5 mg Tablet
5 mg PO BID Qty: 60 0RF
furosemide [Lasix] 40 mg tablet
See Rx Instructions .ROUTE .COMPLEX Qty: 30 0RF
Rx Instructions:
40 mg orally Thursday, Thursday, Thursday
Referrals:
UNKNOWN - PT DOES,NOT KNOW [Family Provider]
Activity Restrictions/Additional Instructions:
As discussed, please follow-up with cardiology. You should receive a call to set up an appointment. Please contact number should you not receive a call. As discussed, your blood work is trending down. PLEASE RETURN TO THE ER SHOULD SHE DEVELOP
CHEST PAIN, DIZZINESS, FAINTING SPELLS, FEVERS OR CHILLS, INTRACTABLE NAUSEA OR VOMITING, SWELLING IN HER LEGS, OR ANY OTHER SIGNS OR SYMPTOMS RECENTLY.
Interventions
Interventions:
*Risk Screen - Suicide Last Done: 12/29/24 01:52
*General Assessment Last Done: 12/29/24 01:52
*Neglect/Abuse Screening Last Done: 12/29/24 01:52
*ED- Fall Risk Assessment Last Done: 12/29/24 01:52
*ED COVID-19 Vaccine History Last Done: 12/29/24 01:52
Discharge Date and Time
Print Language: LAO
[2024-12-29 02:12] LABS: ALT (SGPT) 17 U/L (0-50); AST (SGOT) 22 U/L (17-59); Albumin 3.6 g/dl (3.5-5.0); Alkaline Phosphatase 46 U/L (38-126); Blood Urea Nitrogen 29 mg/dl (9-20); Calcium 9.0 mg/dl (8.4-10.2); Carbon Dioxide 27 mmol/L (22-30); Chloride 99 mmol/L (98-107); Estimated Creatinine Clearance 46 ml/min; Glucose 121 mg/dl (70-99); Potassium 4.1 mmol/L (3.5-5.1); Sodium 135 mmol/L (135-145); Total Protein 6.6 g/dl (6.3-8.2); eGFR 54.17
[2024-12-29 02:39] LABS: Hematocrit 40.0 % (39.0-52.0); Hemoglobin 13.6 g/dL (13.0-18.0); Mean Corp Hgb Conc. 34.0 g/dL (33.0-37.0); Mean Corpuscular Volume 88.9 fL (80.0-94.0); Nucleated Red Blood Cells % 0 % (-); Platelet Count 340 10^3/uL (130-400); Red Cell Dist. Width 13.3 % (11.5-14.5)
[2024-12-29 03:10] LABS: Troponin I 0.041 ng/ml
[2024-12-29 03:18] VITALS: BP 116/57
[2024-12-29] MEDS: LASIX 40 MG IV (04:06)
[2024-12-29 04:09] VITALS: BP 111/64
[2024-12-29 05:00] VITALS: BP 117/63
== END 2024-12-29 07:25 | disposition home or self-care (01) ==
LOC: EMR 01:28
PROVIDERS: Physician Assistant; Student in an Organized Health Care Education/Training Program; EMERGENCY PHYSICIAN Emergency Medicine
DX: I11.0 Hypertensive heart disease with heart failure (principal); I50.9 Heart failure, unspecified; E78.00 Pure hypercholesterolemia, unspecified; I25.10 Atherosclerotic heart disease of native coronary artery without angina pectoris; I35.0 Nonrheumatic aortic (valve) stenosis; I48.91 Unspecified atrial fibrillation; J44.9 Chronic obstructive pulmonary disease, unspecified; Z95.1 Presence of aortocoronary bypass graft; Z87.891 Personal history of nicotine dependence; Z79.01 Long term (current) use of anticoagulants; Z79.899 Other long term (current) drug therapy
CPT/HCPCS: 99285; 96374; 71046; 71275; 80053; 83880; 84484; 85025; 93005; Q9967

== ENCOUNTER 2025-03-21 05:28 | Emergency (ER) | payer OTHER, SELFPAY ==
[2025-03-21] VITALS (10 sets, daily range): BP systolic 137–174; BP diastolic 90–114
--- NOTE | 2025-03-21 06:01 | ED.GENMED ---
History of Present Illness
<Mckay Mercado MD, Resident - Last Filed: 03/21/25 07:54>
General
Chief Complaint: Heart Rate Problem
Source: patient
Time Seen by Provider: 03/21/25 05:43
History of Present Illness
History of Present Illness:
Patient is an 84-year-old male with PMH of CAD s/p CABG, A-fib, a flutter, HTN, HLD, aortic stenosis, SSS s/p PPM, and CHF who presents to the [facility] ED with several days of fast heart rate, 2 days of increased shortness of breath, and 2
episodes of cold sweats since 2 AM. No associated chest pain or palpitations. At the bedside, patient has no symptoms. Patient has required electrical cardioversions for atrial flutter and atrial fibrillation due to low blood pressure on 2
occasions over the last 3 years. Patient was previously recommended by cardiology to be on anticoagulation for atrial fibrillation, but he has elected not to do so due to bleeding risk. Patient has not been on anticoagulation since January 2024.
Patient previously declined Watchman. Patient follows with Dr. Guerrero. He is scheduled for an appointment with him this Thursday.
Past History
<Mckay Mercado MD, Resident - Last Filed: 03/21/25 07:54>
Past History
ED Past Medical History: Arrthythmia, CAD, CHF, COPD, HTN, Hypercholesterolemia, [place], Valvular disease, Other (Hernia) and Other (BPH)
ED Past Surgical History: Cardiac (CABG) and Other
Social History
Tobacco: Former smoker (occasional Cigar)
Alcohol: Occasional
Drug: None
Personal:
Living: alone
Family History
Family History: Early CAD
Review of Systems
<Mckay Mercado MD, Resident - Last Filed: 03/21/25 07:54>
Review of Systems
Respiratory: Reports trouble breathing
Cardiac: Reports diaphoresis (Cold sweats); Denies chest pain, palpitations or syncope
ABD/GI: Denies abdominal pain, nausea, vomiting or diarrhea
: Denies dysuria, frequency or urgency
Phy Exam
<Mckay Mercado MD, Resident - Last Filed: 03/21/25 07:54>
Physical Exam
Physical Exam:
General: NAD. Conversant.
CV: Tachycardic. S1, S2 noted. Systolic ejection murmur loudest at RUSB. No LE edema.
Pulm: CTAB. No wheezes or crackles. No cyanosis. Breathing comfortably.
GI: Soft, nontender. Nondistended.
Neuro: A&O x 3. NFD. CN II through XII grossly intact.
Course
<Mckay Mercado MD, Resident - Last Filed: 03/21/25 07:54>
Orders/Labs/Results
Orders:
Orders
03/21/25 05:35
EKG [Electrocardiogram (*1)] Urgent
Reason for Study: Tachycardia
03/21/25 05:36
EKG- Treatment ONCE
03/21/25 06:08
Complete Blood Count/With Diff Urgent
Comprehensive Metabolic Panel Urgent
NT-proBNP Urgent
Comment: ADD ON
TSH Reflex To Free T4 Routine
Comment: ADD ON
03/21/25 07:06
Interrogate Pacemaker- Treatment ONCE
03/21/25 07:38
CARDIOLOGY CONSULT Urgent
Consulting Provider: Bandar Yung
Was physician already notified: Yes
03/21/25 07:41
Troponin I Urgent
03/21/25 08:26
Add On- LAB Routine
Tests Added?: TSH reflex to T4
03/21/25 08:47
CXR2 [CR Chest - 2 Views ] Routine
Comment:
Reason For Exam: HFrEF
03/21/25 08:51
Add On- LAB Urgent
Tests Added?: pro BNP
03/21/25 10:41
Troponin I Urgent
Abnormal Lab Results
03/21/25 03/21/25
06:08 07:41
RBC 4.62 L 10^6/uL
(4.70-6.10)
Absolute Lymphs (auto) 0.9 L 10^3/uL
(1.2-3.4)
Lymphocytes % 13.9 L %
(20.5-51.1)
Monocytes % 9.9 H %
(1.7-9.3)
Glucose 104 H mg/dl
(70-99)
Alkaline Phosphatase 36 L U/L
(38-126)
Troponin I 0.055 H* ng/ml
03/21/25 06:08
03/21/25 06:08
Vital Signs
Initial and Last Documented VS:
Initial Vital Signs
Temp Pulse Resp BP Pulse Ox
36.5 C 105 22 174/114 97
03/21/25 05:31 03/21/25 05:31 03/21/25 05:31 03/21/25 05:31 03/21/25 05:31
Last Documented Vital Signs
Temp Pulse Resp BP Pulse Ox
36.5 C 103 15 137/90 96
03/21/25 05:31 03/21/25 06:30 03/21/25 06:30 03/21/25 06:30 03/21/25 06:30
<Bandar Jane MD - Last Filed: 03/21/25 10:00>
Orders/Labs/Results
Orders:
Orders
03/21/25 05:35
EKG [Electrocardiogram (*1)] Urgent
Reason for Study: Tachycardia
03/21/25 05:36
EKG- Treatment ONCE
03/21/25 06:08
Complete Blood Count/With Diff Urgent
Comprehensive Metabolic Panel Urgent
NT-proBNP Urgent
Comment: ADD ON
TSH Reflex To Free T4 Routine
Comment: ADD ON
03/21/25 07:06
Interrogate Pacemaker- Treatment ONCE
03/21/25 07:38
CARDIOLOGY CONSULT Urgent
Consulting Provider: Bandar Yung
Was physician already notified: Yes
03/21/25 07:41
Troponin I Urgent
03/21/25 08:26
Add On- LAB Routine
Tests Added?: TSH reflex to T4
03/21/25 08:47
CXR2 [CR Chest - 2 Views ] Routine
Comment:
Reason For Exam: HFrEF
03/21/25 08:51
Add On- LAB Urgent
Tests Added?: pro BNP
03/21/25 10:41
Troponin I Urgent
Abnormal Lab Results
03/21/25 03/21/25
06:08 07:41
RBC 4.62 L 10^6/uL
(4.70-6.10)
Absolute Lymphs (auto) 0.9 L 10^3/uL
(1.2-3.4)
Lymphocytes % 13.9 L %
(20.5-51.1)
Monocytes % 9.9 H %
(1.7-9.3)
Glucose 104 H mg/dl
(70-99)
Alkaline Phosphatase 36 L U/L
(38-126)
Troponin I 0.055 H* ng/ml
03/21/25 06:08
03/21/25 06:08
Vital Signs
Initial and Last Documented VS:
Initial Vital Signs
Temp Pulse Resp BP Pulse Ox
36.5 C 105 22 174/114 97
03/21/25 05:31 03/21/25 05:31 03/21/25 05:31 03/21/25 05:31 03/21/25 05:31
Last Documented Vital Signs
Temp Pulse Resp BP Pulse Ox
36.5 C 103 15 137/90 96
03/21/25 05:31 03/21/25 06:30 03/21/25 06:30 03/21/25 06:30 03/21/25 06:30
<Mckay Mercado MD, Resident - Last Filed: 03/21/25 07:54>
MDM/Problems Addressed
Differential Diagnosis Includes:
Atrial flutter
Atrial fibrillation
Heart failure
MDM/Problems Addressed:
Assessment: Patient is an 84-year-old male with PMH of CAD s/p CABG, paroxysmal A-fib, a flutter, HTN, HLD, aortic stenosis, CHF, and SSS s/p PPM who presents to the ED with several days of tachycardia, 2 days of increased shortness of breath, and 2
episodes of diaphoresis since 2 AM this morning. Patient is not on anticoagulation. No chest pain or palpitations. Asymptomatic in ED. On presentation, BP 174/114, HR 105. EKG shows atrial flutter. CBC, CMP unremarkable. Will discuss case
with cardiology.
Plan:
#Tachycardia
EKG
Labs: CBC, CMP
<Mckay Mercado MD, Resident - Last Filed: 03/21/25 07:54>
*Pulse Oximetry
SaO2: 97
Oxygen Mode of Delivery: Room air
Patient hypoxic: no
*Critical Care Note
Total Time (30-74mins, 75-104mins- exclusive of procedures): Not Applicable
ED Attending Note
<Mckay Mercado MD, Resident - Last Filed: 03/21/25 07:54>
-
Portions of this chart may have been created with voice recognition software.� Occasional wrong word or��sound alike� substitutions may have occurred due to the inherent limitations of voice recognition software.
<Bandar Jane MD - Last Filed: 03/21/25 10:00>
ED Attending Note
Patient seen and examined by attending physician: Yes
I performed a history and physical exam of patient and discussed management with resident, I reviewed resident's note and agree with documented findings and plan of care.: Yes
ED Attending Note:
I have seen and evaluated the patient with a [id number] encounter. I have spoken to the resident and involved in the medical history, the physical exam, medical decision making.
Evaluation and management service: agree unless noted differently below.
Results interpretation: agree unless noted differently below.
Focused HPI: 84-year-old male with history as documented including hypertension, hyperlipidemia, CAD status post CABG, atrial fibrillation/flutter, aortic stenosis who presents to the emergency department for evaluation of tachycardia. Patient
reports that he routinely checks his vital signs twice a day. He says that starting last week he started to notice his heart rate consistently at around to 100 which is faster than usual. He says that he was not having much in the way of symptoms
and is scheduled to see cancer program coordinator this upcoming Thursday. Overnight last night he woke up twice very sweaty with high heart rate and was concerned so came to the ER for evaluation. Thankfully he is asymptomatic here. He says that aside from
episodes of sweatiness overnight [facility] was slightly more short of breath than usual when walking from the store. Otherwise has not had any chest pain, swelling in her legs or any other acute symptoms. He has a long
history of A-fib/flutter and has been cardioverted multiple times previously. He was on Eliquis until last January at which time Eliquis was discontinued due to significant GI bleeding. He sees Dr. Guerrero for cardiology care.
Physical exam: Awake and alert not in distress. Hypertensive, heart rate low 100s, no tachypnea or hypoxia, no fever. He has a systolic murmur, regular rhythm. Lungs sound clear bilaterally. No edema in the legs. No JVD.
Medical Decision Makin-year-old male with history as noted presents for evaluation of tachycardia, 2 episodes of diaphoresis overnight with elevated heart rate. Vitals and exam as above. Thankfully he is asymptomatic here and his heart rate
is low 100s. No indication for emergent cardioversion and asymptomatic patient with stable vital signs. He is not on blood thinners due to significant bleeding in the past. He started having tachycardia last week and overall would not be a good
candidate for elective DC cardioversion. Will plan to check basic labs to rule out anemia or electrolyte abnormality, check troponin. Interrogate device and discuss further management with cardiology.
Labs reviewed: CBC and CMP no clinically significant abnormalities. [employer] report reviewed and it does show persistent AT/AF since March 16 with intermittent episodes dating back to February. This morning had 2 episodes of rapid atrial
tachycardia. Awaiting cardiology recommendations regarding further treatment specifically regarding anticoagulant and beta-dee dee given current atrial flutter.
Cardiology performed assessment: Recommending starting patient on Aldactone 12.5 mg daily and discontinuing carvedilol in favor of metoprolol succinate 50 mg twice daily. Patient unfortunately declined anticoagulation. Follow-up in the cardiology
office Thursday as scheduled.
Discharge Plan
Departure
Patient with high blood pressure during this ER visit?: Yes
Discharge Problem:
Atrial flutter
Instructions: Atrial flutter (DC)
Prescriptions:
New
spironolactone [Aldactone] 25 mg tablet
12.5 mg PO DAILY Qty: 30 0RF
metoprolol succinate 50 mg tablet extended release 24 hr
50 mg PO BID Qty: 60 0RF
Discontinued
carvedilol 12.5 mg Tablet
12.5 mg PO BID Qty: 60 0RF
No Action
rosuvastatin [Crestor] 40 MG tablet
40 mg PO DAILY
vitamin E (dl, acetate) 100 UNITS capsule
100 units PO QPM
multivitamin with folic acid [Tab-A-Juan] 1 TABLET tablet
1 tab PO QPM
tramadol 50 MG tablet
50 mg PO BID
lisinopril [Zestril] 30 MG tablet
30 mg PO DAILY@1200
finasteride 5 MG tablet
5 mg PO DAILY
tamsulosin 0.4 MG capsule
0.4 mg PO QPM
aspirin 81 mg Tablet,Delayed Release (Dr/Ec)
81 mg PO DAILY
pantoprazole 40 mg tablet,delayed release (DR/EC)
40 mg PO QPM
simethicone 125 mg Tablet
125 mg PO DAILYPRN PRN (Reason: gas)
Eliquis 5 mg Tablet
5 mg PO BID Qty: 60 0RF
furosemide [Lasix] 40 mg tablet
See Rx Instructions .ROUTE .COMPLEX Qty: 30 0RF
Rx Instructions:
40 mg orally Thursday, Thursday, Thursday
Referrals:
Irlanda Diaz MD [Family Provider, Family Practice]
Morris Guerrero MD [Active, Cardiology] - 03/24/25
Activity Restrictions/Additional Instructions:
Thank you for visiting the Emergency Department at [facility].
1. Please schedule a follow up appointment as directed. Call first thing tomorrow morning to make an appointment.
2. If indicated, please take your medications as instructed and indicated on discharge paperwork.
3. If any of your symptoms do not improve, or persist, or become more severe within 6-12 hours, please return to the emergency department for further care.
4. Please return to the emergency department if you develop a headache, neck pain/stiffness, fever greater than 100.4F, chest pain, shortness of breath, persistent nausea, vomiting, slurred speech, difficulty walking, numbness/tingling, weakness,
signs of infection or any other symptoms that are worrisome to you.
Please call [phone] if you have any questions.
Interventions
Interventions:
*Risk Screen - Suicide Last Done: 03/21/25 05:31
*General Assessment Last Done: 03/21/25 06:00
*Neglect/Abuse Screening Last Done: 03/21/25 06:00
*ED- Fall Risk Assessment Last Done: 03/21/25 06:00
*ED COVID-19 Vaccine History Last Done: 03/21/25 06:00
*ED Influenza Vaccine History Last Done: 03/21/25 06:00
ED- Cardiac Assessment Last Done: 03/21/25 06:11
ED- Pulmonary Assessment Last Done: 03/21/25 06:11
Discharge Date and Time
Print Language: CONGOLESE
[2025-03-21 06:23] LABS: Hematocrit 42.0 % (39.0-52.0); Hemoglobin 14.0 g/dL (13.0-18.0); Mean Corp Hgb Conc. 33.3 g/dL (33.0-37.0); Mean Corpuscular Volume 90.9 fL (80.0-94.0); Nucleated Red Blood Cells % 0 % (-); Platelet Count 202 10^3/uL (130-400); Red Cell Dist. Width 13.6 % (11.5-14.5)
[2025-03-21 06:42] LABS: ALT (SGPT) 15 U/L (0-50); AST (SGOT) 24 U/L (17-59); Albumin 3.9 g/dl (3.5-5.0); Alkaline Phosphatase 36 U/L (38-126); Blood Urea Nitrogen 15 mg/dl (9-20); Calcium 8.9 mg/dl (8.4-10.2); Carbon Dioxide 29 mmol/L (22-30); Chloride 102 mmol/L (98-107); Glucose 104 mg/dl (70-99); Potassium 4.4 mmol/L (3.5-5.1); Sodium 137 mmol/L (135-145); Total Protein 6.9 g/dl (6.3-8.2); eGFR > 60.00
--- NOTE | 2025-03-21 07:44 | CON.CAR ---
Addendum entered and electronically signed by Bandar Yung MD 03/21/25 10:45:
I saw and evaluated the patient, and I provided the substantive portion of the medical decision making. I reviewed and agree with the note by JCARLOS Max and it accurately reflects our care. I personally performed the medical decision
making of the this encounter and my assessment and plan is below:
Symptomatic atrial flutter
Sick sinus syndrome, s/p pacemaker
Anticoagulation and Watchman declined by patient
Ischemic cardiomyopathy
Chronic HFrEF
We will increase rate control and add MRA. Followup arranged later this week (he already had appointment).
Cannot offer rhythm control today as pt declines anticoagulation.
Original Note:
Consultation
Consultation Request
Date/Time Consultation Requested: 03/21/2025 07:30
Date/Time Consultation Performed: 03/21/2025 07:45
Requesting Provider: Dr. Jane
Performing Provider: JCARLOS Max for Dr. Yung
Reason for Consultation: Atrial flutter
Medical History
-
Chief Complaint: Elevated heart rate
History of Present Illness:
Andrew Kaba is an 84-year-old male (known to Dr. Guerrero, his primary wrecking mechanic) with coronary artery disease status-post CABG (2010), chronic HFrEF/ICM (EF 30-35%), paroxysmal atrial fibrillation/flutter (not on systemic anticoagulation due
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
BPH who presented to the emergency department with a chief complaint of elevated heart rate. He checks his heart rate twice a day. For the past 3 to 4 days he has noted an elevated heart rate. He was concerned that he may be in an atrial
arrhythmia. He endorses associated night sweats. For the past 2 nights he woke up between 2 and 3 AM in a cold sweat. He does not have any shortness of breath, chest pain, CRISTINA. He is not on any anticoagulation due to 2 prior GI bleeds
(diverticular 2013, no bleeding source per GI 2023).
Past Medical History
Past Medical History: Arrhythmias, CAD, HTN, Hypercholesterolemia, Valvular Disease and Other (as above)
Past Surgical History: Cardiac (CABG, PPM)
Social History
Tobacco: Non-Smoker
Family History
Family History: Reviewed & Not Pertinent
Allergies / Home Medications
Allergy/AdvReac Type Severity Reaction Status Date / Time
No Known Allergies Allergy Verified 03/21/25 05:31
�Medication �Instructions �Recorded �Confirmed �Type
multivitamin with folic acid 400 1 tab PO QPM Supplement 07/01/17 12/25/24 History
mcg tablet (Tab-A-Juan)
rosuvastatin 40 mg tablet (Crestor) 40 mg PO DAILY High cholesterol 07/01/17 12/25/24 History
vitamin E (dl, acetate) 45 mg (100 100 units PO QPM Supplement 07/01/17 12/25/24 History
unit) capsule
finasteride 5 mg tablet 5 mg PO DAILY prostate issues 04/11/21 12/25/24 History
lisinopril 30 mg tablet (Zestril) 30 mg PO DAILY@1200 Blood pressure 04/11/21 12/25/24 History
tramadol 50 mg tablet 50 mg PO BID Pain 04/11/21 12/25/24 History
tamsulosin 0.4 mg capsule 0.4 mg PO QPM Urinary issue 04/12/21 12/25/24 History
aspirin 81 mg tablet,delayed 81 mg PO DAILY Blood Clot 11/19/23 12/25/24 History
release Prevention/Tx
pantoprazole 40 mg tablet,delayed 40 mg PO QPM Gastrointestinal Issue 12/19/24 12/25/24 History
release
simethicone 125 mg tablet 125 mg PO DAILYPRN PRN gas 12/25/24 12/25/24 History
apixaban 5 mg tablet (Eliquis) 5 mg PO BID #60 tabs 12/28/24 Rx
carvedilol 12.5 mg tablet 12.5 mg PO BID #60 tabs 12/28/24 Rx
furosemide 40 mg tablet (Lasix) See Rx Instructions .Route 12/28/24 Rx
.COMPLEX #30 tabs
Review of Systems
-
History Source: Patient
All other systems: Negative unless noted
Constitutional: Fatigue
EENT: No Symptoms
Respiratory: No Symptoms
Cardiac: No Symptoms
Abdomen/GI: No Symptoms
: No Symptoms
Musculoskeletal: No Symptoms
Skin: No Symptoms
Neurological: No Symptoms
Endocrine: No Symptoms
Hematologic/Lymphatic: No Symptoms
Physical Exam
Vital Signs
Temp Pulse Resp BP Pulse Ox
97.7 F 103 15 137/90 96
03/21/25 05:31 03/21/25 06:30 03/21/25 06:30 03/21/25 06:30 03/21/25 06:30
Lab Results
03/21/25 06:08
03/21/25 06:08
Physical Exam
General: Well Developed, Well Nourished, No Apparent Distress and Comfortable
HEENT: Normocephalic, Anicteric and Moist Mucous Membranes
Respiratory: Clear and Non Labored Respirations
Cardiac: S1/S2 and Irregular Rhythm
Breast: Deferred by me
GI: Soft, Non Tender, Non Distended and Normal Bowel Sounds
Rectal: Deferred by Provider
Genito-urinary: No Costovertebral Tender
Musculoskeletal: No Clubbing, No Cyanosis and No Edema
Skin: Warm and Dry
Neuro: AO x 3
Hematologic/Lymphatic: No Lymphadenopathy
Psych: Calm
Impression / Plan
-
I/P: 84M with coronary artery disease status-post CABG (2010), chronic HFrEF/ICM (EF 30-35%), paroxysmal atrial fibrillation/flutter (not on systemic anticoagulation due to bleeding risk; declined Watchman), sick sinus syndrome status-post [employer]tr[employer]
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
elevated heart rate.
Primary wrecking mechanic: Dr Guerrero
Paroxysmal atrial fibrillation/flutter
- Per device, atrial fibrillation started 03/16/2025 at 6:32 AM
- Discontinue carvedilol, start metoprolol succinate 50 mg twice daily
- Oral anticoagulation: None due to prior GI bleed, he does not want a retrial, he declined Watchman
- He is aware of the need for oral anticoagulation 4 weeks post DCCV, he is not sure he will want to take it for this long
- [id number]: Score at least 5 (Heart failure, HTN, age 75 or more, Vascular disease)
- TSH with reflex to T4 pending
History of GI bleed
- Diverticular bleed requiring transfusion in 2013
- Anemia without findings of acute bleeding 12/2023
Abnormal troponin, likely nonischemic myocardial injury in the setting of atrial arrhythmia
- No acute ST changes
- Troponin is similar to prior admissions
Ischemic cardiomyopathy
HFrEF, chronic
- He does not appear volume overloaded on exam
-GDMT as tolerated:
-MALU/ARB/ARNI: Lisinopril 10 mg daily
-SGLT2 inhibitor: Cost prohibitive
-Aldosterone agonist: Add spironolactone 12.5 mg daily
-Beta dee dee: As above
-Isosorbide/Hydralazine:�Can consider if BP becomes above goal, no angina
-ICD: He will discuss this at his next office visit
- He knows when to notify the office for weight gain, CRISTINA, and shortness of breath
Moderate aortic stenosis, peak/mean gradients 33/18, ALAINA 1.2 cm
Mitral regurgitation, mild to moderate
Sinus node dysfunction s/p dual-chamber permanent pacemaker
- Device stable, followed in device clinic
CAD, stable without chest pain, grafts patent by [facility] 2022, on ASA, if apixaban is resumed, would not have both ASA and apixaban given history of GIB
NSVT, continue beta-dee dee
PSVT, continue beta-dee dee
Pulmonary fibrosis, amiodarone is being avoided for this reason
DATA:
Transthoracic echocardiogram, 12/26/2024:
SUMMARY
1. Normal left ventricular size with moderately reduced systolic function. LVEF 30-35%.
2. Severe hypokinesis of the inferior, inferolateral, and anterolateral steinberg.
3. Moderate aortic stenosis (peak/mean 33/18 mmHg, ALAINA 1.2 cm²).
4. Mild to moderate mitral regurgitation.
5. Mildly dilated aortic root (SOV 4.1 cm).
6. Compared to prior echocardiogram in 2023, there is no significant change. Aortic root was likely underestimated on that study.
Data Reviewed
-
EKG: Report Reviewed by me (Atrial flutter, 2:1 AV conduction, rate 105)
Medical Tests (Nuc Med, Echo etc): Report Reviewed by me (Echocardiogram as above)
Labs: Labs Reviewed by me
Old Records: Reviewed
[2025-03-21 08:19] LABS: Troponin I 0.055 ng/ml
[2025-03-21] MEDS: TOPROL XL 50 MG PO (10:26)
[2025-03-21 10:55] LABS: Troponin I 0.057 ng/ml
== END 2025-03-21 11:37 | disposition home or self-care (01) ==
LOC: EMR 05:28
PROVIDERS: CONSULT PHYSICIAN Internal Medicine Cardiovascular Disease; EMERGENCY PHYSICIAN Emergency Medicine; FAMILY PHYSICIAN Family Medicine
DX: I48.92 Unspecified atrial flutter (principal); E78.00 Pure hypercholesterolemia, unspecified; I11.0 Hypertensive heart disease with heart failure; I50.22 Chronic systolic (congestive) heart failure; I25.10 Atherosclerotic heart disease of native coronary artery without angina pectoris; I25.5 Ischemic cardiomyopathy; I34.0 Nonrheumatic mitral (valve) insufficiency; I35.0 Nonrheumatic aortic (valve) stenosis; I48.0 Paroxysmal atrial fibrillation; J44.9 Chronic obstructive pulmonary disease, unspecified; N40.0 Benign prostatic hyperplasia without lower urinary tract symptoms; Z79.899 Other long term (current) drug therapy; Z87.891 Personal history of nicotine dependence; Z95.0 Presence of cardiac pacemaker; Z95.1 Presence of aortocoronary bypass graft
CPT/HCPCS: 99285; 71046; 80053; 83880; 84443; 84484; 85025; 93005

== ENCOUNTER 2025-03-26 13:04 | Observation (INO) | payer OTHER, SELFPAY ==
[2025-03-26] VITALS (13 sets, daily range): BP systolic 120–191; BP diastolic 79–135
--- NOTE | 2025-03-26 09:58 | ED.GENMED ---
History of Present Illness
General
Chief Complaint: Heart Rate Problem
Source: patient and records
Exam Limitations: none
Time Seen by Provider: 03/26/25 09:47
Nursing documentation reviewed up to this point in time: agreed with
History of Present Illness
History of Present Illness:
84-year-old male with a past medical history as noted significant for hypertension and hyperlipidemia, CAD status post CABG, aortic stenosis, paroxysmal atrial fibrillation/flutter, sick sinus syndrome with Medtronic pacemaker; who presents to the
ER today for evaluation of shortness of breath, palpitations. Of note patient was seen in the emergency room by me 5 days ago presented at that time mainly complaining of palpitations/elevated heart rate. He was seen in consultation with
cardiology at that time was switched from carvedilol to metoprolol and started on Aldactone. He saw his embroidery designer (Dr. Guerrero) this past and after previously declining anticoagulation multiple times he agreed this past to
restart Eliquis given persistent atrial fib/flutter. Despite these medications adjustments he feels his symptoms are worsening�he has had continued palpitations and tachycardia and he feels his heart rate is increasing and over the past day or 2
has been consistently over 120. He says he is having increasing shortness of breath with minimal exertion to the point that he is not able to function due to his significant shortness of breath on activity. He has been waking up at night with
shortness of breath. He denies chest pain but says he has some mild tightness in the chest. He denies any coughing. He has not noticed any swelling in the legs. He denies any other acute complaints.
Past History
Past History
ED Past Medical History: Arrthythmia, CAD, CHF, COPD, HTN, Hypercholesterolemia, NE, Valvular disease, Other (Hernia) and Other (BPH)
ED Past Surgical History: Cardiac (CABG) and Other
Social History
Tobacco: Former smoker (occasional Cigar)
Alcohol: Occasional
Drug: None
Personal:
Living: alone
Family History
Family History: Early CAD
Review of Systems
Review of Systems
All Other Systems: ROS reviewed and negative except as documented in HPI and ROS
Constitutional: Denies fever or chills
Respiratory: Reports trouble breathing; Denies cough
Cardiac: Reports chest pain (tightness) and palpitations
ABD/GI: Denies abdominal pain or nausea
: Denies flank pain
Musculoskeletal: Denies edema, neck pain or back pain
Neurological: Denies headache
Phy Exam
Physical Exam
Physical Exam:
General: Awake, alert, oriented x3; no acute distress
Head: Normocephalic, atraumatic
Eyes: Conjunctiva normal
Throat: Airway intact, handling secretions
Neck: Trachea midline, no JVD noted
Lungs: Clear to auscultation bilaterally, no wheezing, rales, rhonchi
Heart: Tachycardia with irregular rhythm, systolic murmur noted
Abd: Soft, non distended, nontender
Neuro: Grossly intact
Skin: no rash
Extremities: No edema in extremities, equal pulses in all extremities
Scores
Heart Failure Risk
Heart Failure Risk Score: Not Applicable
Heart Score for Chest Pain Patients
STEMI patient?: Not applicable
Withdrawal Assessment of Alcohol
Withdrawal Assessment Completed?: Not applicable
Course
Orders/Labs/Results
Orders:
Orders
03/26/25 09:37
Electrocardiogram (*1) Urgent
Reason for Study: Shortness of Breath
EKG- Treatment ONCE
03/26/25 09:57
CARDIOLOGY CONSULT Urgent
Consulting Provider: Christiano Ballard
Was physician already notified: Yes
Metoprolol [Lopressor] 5 mg IV NOW STA
CR Chest - 2 Views Urgent
Comment:
Reason For Exam: sob
03/26/25 09:58
Nitroglycerin Ointment [Nitro-Bid] 1 inch TOPICAL NOW STA
03/26/25 09:59
Complete Blood Count/With Diff Urgent
Comprehensive Metabolic Panel Urgent
NT-proBNP Urgent
TSH Reflex To Free T4 Urgent
Troponin I Urgent
03/26/25 Lunch
Sodium, 2 Gram
At Your Request: Non-Participating
03/26/25 12:38
Admit Patient As Directed
Co-Sign Provider:
Level of Care: Observation services
Assign to:: IVU
Physician / Group: Nellie
Diagnosis: Atrial flutter
Reason for Hospitalization: atrial flutter
Expected length of stay greater than two midnights?: No
Code Status As Directed
Resuscitation Status: Full Code
Bisacodyl [Dulcolax] 10 mg RECTAL [id number] PRN
Docusate W/Senna [Senokot-S] 1 tablet PO BIDPRN PRN
Polyethylene Glycol Powder [Miralax] 17 grams PO DAILYPRN PRN
Activity As Directed
Activity Level: Out of Bed- Ad Razia
Vital Signs As Directed
Frequency: Per unit guidelines
PRN Pain Medication Management As Directed
May give lesser potent ordered pain med per pt: Yes
preference::
Protocol:: Medication orders for pain may be administered in a
manner that supports deferring to patient preference
when the pt is:
- Requesting an ordered lesser potent pain medication.
Least to most potent pain medications are defined
as: acetaminophen < NSAID < tramadol < opioids
(morphine, oxycodone, hydromorphone).
- Requesting a lesser dose of the same medication IF
ORDERED.
- Requesting a less intrusive route of administration
if both routes are prescribed by the provider (PO <
IV).
03/26/25 12:41
VTE Contraindication Routine
VTE Mechanical Device Contraindication: Medical Contraindication
Pharmocologic Contraindication: Medical Contraindication
Comment: patient on AC
03/26/25 12:45
lisinopril [Zestril] 30 mg PO DAILY@1200
03/26/25 13:00
Tramadol HCl [Ultram] 50 mg PO BID
03/26/25 13:22
Simethicone [Mylicon] 80 mg PO DAILYPRN PRN
03/26/25 13:30
Apixaban [Eliquis] 5 mg PO BID
03/26/25 14:00
Spironolactone [Aldactone] 12.5 mg PO DAILY
03/26/25 18:00
Multivitamin [Theragran] 1 tablet PO QPM
Pantoprazole [Protonix] 40 mg PO QPM
Tamsulosin [Flomax] 0.4 mg PO QPM
Vitamin E 100 units PO QPM
03/26/25 20:00
Metoprolol Xl [Toprol Xl] 50 mg PO BID
03/27/25 Breakfast
NPO
Allow oral meds: Yes
Allow clear liquids: Sips of Clears
Basic Metabolic Panel IN AM
Complete Blood Count/No Diff IN AM
03/27/25 08:00
Finasteride [Proscar] 5 mg PO DAILY
rosuvastatin [Crestor] 40 mg PO DAILY
03/28/25 06:00
Basic Metabolic Panel IN AM
03/29/25 06:00
Basic Metabolic Panel IN AM
Abnormal Lab Results
03/26/25
09:59
RBC 4.44 L 10^6/uL
(4.70-6.10)
Absolute Lymphs (auto) 0.9 L 10^3/uL
(1.2-3.4)
Neutrophils % 79.6 H %
(42.2-75.2)
Lymphocytes % 11.1 L %
(20.5-51.1)
Glucose 113 H mg/dl
(70-99)
Troponin I 0.055 H* ng/ml
03/26/25 09:59
03/26/25 09:59
Vital Signs
Initial and Last Documented VS:
Initial Vital Signs
Temp Pulse Resp BP Pulse Ox
36.7 C 131 18 191/135 96
03/26/25 09:40 03/26/25 09:40 03/26/25 09:40 03/26/25 09:40 03/26/25 09:40
Last Documented Vital Signs
Temp Pulse Resp BP Pulse Ox
36.7 C 121 27 129/90 96
03/26/25 09:40 03/26/25 10:03 03/26/25 10:00 03/26/25 10:03 03/26/25 10:06
MDM/Problems Addressed
Differential Diagnosis Includes:
Symptomatic atrial flutter, CHF; pneumonia and PE considered somewhat less likely clinically
MDM/Problems Addressed:
84-year-old male with history as noted returns to the emergency room with continued palpitations and tachycardia and progressive shortness of breath particularly on exertion. He also is describing what sounds like PND. He arrives to us
hypertensive with a blood pressure of 190/135. He is tachycardic with heart rate in the 140s during my assessment�EKG appears consistent with 2:1 atrial flutter. Physical exam is as documented above. Patient was brought back to room and placed on
personnel monitor and continuous pulse oximetry. IV access established and labs sent off including CBC to CMP, proBNP, troponin. Will check chest x-ray. Overall suspect that he is symptomatic both from the atrial flutter but also he is likely
having congestive heart failure as well in the setting of his atrial flutter. Will provide IV Lopressor for initial rate control, nitroglycerin to help control blood pressures/decrease afterload. Case discussed with cardiology for consultation.
Patient seen evaluate by cardiology who admit to their service with plan for SHAN cardioversion on inpatient basis tomorrow. Labs reviewed, troponin is stable, proBNP remains elevated. There was a question of pneumonia on chest x-ray but without
fever or leukocytosis or cough this does not fit with the clinical picture overall suspect that this is more likely CHF. Hold antibiotics for now.
Chronic conditions affecting care:
Atrial flutter, aortic stenosis, CHF, CAD
Acute Exacerbation and/or Progression of Chronic Illness:
Acutely hypertensive managed with nitroglycerin
Acute atrial flutter managed with Lopressor
Acute Exacerbation and/or Progression of Chronic Illness: HTN
*Radiology
Radiology exam reviewed: preliminary read by ED provider
*Pulse Oximetry
SaO2: 96
Oxygen Mode of Delivery: Room air
Patient hypoxic: no (96%)
*EKG
Interpreted by ED Provider?: Yes
Heart Rate: 132
Rate: tachycardiac
Rhythm: atrial flutter
[place]: left axis deviation
Interval: normal interval
QRS Pattern: left vent hypertrophy
Ischemia: non-specific ST changes
*Critical Care Note
Total Time (30-74mins, 75-104mins- exclusive of procedures): Not Applicable
Data Reviewed
Review of Other/Old Records Reveals: Labs and Records
Source: patient and records
Prescriptions/Medications Considered But Not Given:
Considered antibiotics
Patient Management
Discussion with other providers: Fermenting Cellar Dropper (Discussed with embroidery designer)
Escalation/DeEscalation of care consider admission/obs:
Admission indicated
ED Attending Note
-
Portions of this chart may have been created with voice recognition software.� Occasional wrong word or��sound alike� substitutions may have occurred due to the inherent limitations of voice recognition software.
Discharge Plan
Departure
Patient Disposition: Admit
Admit to doctor: Nellie
Presentation/result/management discussed w/ accepting MD/DO: Cardiology
Discharge Problem:
Atrial flutter, CHF (congestive heart failure)
Interventions
Interventions:
*Risk Screen - Suicide Last Done: 03/26/25 09:40
*General Assessment Last Done: 03/26/25 09:40
*Neglect/Abuse Screening Last Done: 03/26/25 09:40
*ED- Fall Risk Assessment Last Done: 03/26/25 09:40
*ED COVID-19 Vaccine History Last Done: 03/26/25 09:40
*ED Influenza Vaccine History Last Done: 03/26/25 09:40
ED- Cardiac Assessment Last Done: 03/26/25 09:53
ED- Pulmonary Assessment Last Done: 03/26/25 09:53
[2025-03-26] MEDS: LOPRESSOR 5 MG IV (10:02)
[2025-03-26] MEDS: NITRO-BID 1 INCH TOPICAL (10:03)
[2025-03-26 10:07] LABS: Hematocrit 40.8 % (39.0-52.0); Hemoglobin 13.5 g/dL (13.0-18.0); Mean Corp Hgb Conc. 33.1 g/dL (33.0-37.0); Mean Corpuscular Volume 91.9 fL (80.0-94.0); Nucleated Red Blood Cells % 0 % (-); Platelet Count 202 10^3/uL (130-400); Red Cell Dist. Width 13.8 % (11.5-14.5)
[2025-03-26 10:25] LABS: ALT (SGPT) 17 U/L (0-50); AST (SGOT) 22 U/L (17-59); Albumin 4.0 g/dl (3.5-5.0); Alkaline Phosphatase 44 U/L (38-126); Blood Urea Nitrogen 17 mg/dl (9-20); Calcium 8.9 mg/dl (8.4-10.2); Carbon Dioxide 26 mmol/L (22-30); Chloride 103 mmol/L (98-107); Glucose 113 mg/dl (70-99); Potassium 4.5 mmol/L (3.5-5.1); Sodium 136 mmol/L (135-145); Total Protein 7.0 g/dl (6.3-8.2); eGFR > 60.00
[2025-03-26 10:33] LABS: Troponin I 0.055 ng/ml
--- NOTE | 2025-03-26 13:04 | HPS.HSE ---
Family Physician
-
Family Physician: Irlanda Diaz
Chief Complaint
-
shortness of breath
History of Present Illness
Andrew Kaba is an 84-year-old male (known to Dr. 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
shortness of breath and fatigue, found to be in atrial flutter with 2:1 conduction. Patient was seen in the ER earlier this week on 03/21/2025 for elevated heart rate. Device interrogation revealed that patient had atrial fibrillation (started on
03/16). His carvedilol was switched to metoprolol for better heart rate control. We were unable to perform cardioversion or offer antiarrhythmic therapy because he declined anticoagulation. He then saw Dr. Guerrero in the office on 03/24 and
agreed to start Eliquis. They also planned to have him follow-up with Dr. Fields for consideration of ablation and Watchman procedure. He came to the ER today because he was so dyspneic that he had to crawl up the stairs last night and this
morning had to sit down 3 times walking around [place] while doing his shopping because he was so short of breath and fatigued.
Medical History
Past Medical History
Past Medical History: Reports Arrhythmia, CAD, CHF, AR and Valvular Disease
Past Surgical History: Reports Other (CABG)
Social History
Tobacco: Non-smoker
Alcohol: None
Personal: Single
Living: Alone
Family History
Family History: Not pertinent
Allergies / Home Medications
Allergies reflects when Allergies were last updated in [employer].
Home Medications with original date entered in [employer]
Allergy/Medication List:
No known allergies
Home meds:
Eliquis 5 mg twice daily
Aspirin 81 mg daily
Finasteride 5 mg daily
Lasix 40 mg MWF
Lisinopril 30 mg daily
Metoprolol 50 mg twice daily
Pantoprazole 40 mg daily
Rosuvastatin 40 mg daily
Tamsulosin 0.4 mg daily
Tramadol 50 mg twice daily
Vitamin E daily
Spironolactone 12.5 mg daily
Review of Systems
-
A 12 point ROS was completed and negative except as noted: Yes
Physical Exam
Vital Signs
Vital Signs
Temp Pulse Resp BP Pulse Ox
98.0 F 121 27 129/90 96
03/26/25 09:40 03/26/25 10:03 03/26/25 10:00 03/26/25 10:03 03/26/25 10:06
Physical Exam
General: Well Developed and Well Nourished
HEENT: NormoCephalic and Anicteric
Respiratory: Crackles (mild, bibasilar) and Non Labored Respirations
Cardiac: S1/S2, Regular Rhythm and Murmur (3/6 systolic murmur); No Peripheral Edema
Neuro: AO x 3
Laboratory Results
-
03/26/25 09:59
03/26/25 09:59
Laboratory Results
Total Bilirubin 0.8 mg/dl (0.2-1.3) 03/26/25 09:59
AST 22 U/L (17-59) 03/26/25 09:59
ALT 17 U/L (0-50) 03/26/25 09:59
Alkaline Phosphatase 44 U/L (38-126) 03/26/25 09:59
Troponin I 0.055 ng/ml H* 03/26/25 09:59
Data Reviewed
-
Diagnostic Radiology: Image Personally Visualized and interpreted (mild pulmonary edema)
Medical Tests (Nuc Med, Echo, EKG etc): Image Personally Visualized and interpreted (ECG: Atrial flutter with 2-1 conduction) and Report Reviewed by me (EF 30-35%, moderate , mild/mod MR)
Lab Data: Labs Reviewed by me and Discussed with Patient
Old Records: Reviewed
Impression/Plan
-
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
flutter with 2:1 conduction.
Cardiology: Cesar
Atrial flutter
- Very symptomatic with shortness of breath and fatigue. RVR on admission with heart rates 130s. Now improved after IV metoprolol.
- Continue home metoprolol succinate 50 mg twice daily
- Continue Eliquis 5 mg twice daily for anticoagulation. Ultimately will plan for watchman given history of diverticular bleeds.
- SHAN/cardioversion tomorrow. Patient understands that he needs to be on uninterrupted Eliquis for 4 weeks following this.
Heart failure with reduced ejection fraction (EF 30-35%)
- May have a mild CHF exacerbation in the setting of rapid atrial flutter
- Start IV Lasix 40 mg daily which requires intensive monitoring
- GDMT:
- BB: Metoprolol succinate 50 mg twice daily
- MALU/ARB/ARNI: Continue lisinopril 30 mg daily
- MRA: Continue spironolactone 12.5 mg daily
- SGLT2 inhibitor: Cost prohibitive
- Consider ICD long-term
Coronary artery disease status post CABG (2010)
- Stable. No anginal symptoms.
- Continue rosuvastatin
- Stop aspirin given that he recently started Eliquis
Sick sinus syndrome s/p PPM
Aortic stenosis: Moderate on last echocardiogram in December 2024
--- NOTE | 2025-03-26 13:43 | EDCM ---
Reviewed chart and met with pt bedside in ED. Pt lives alone in second floor apartment, [address].
Independent in ADLs, personal care and ambulation at baseline. Uses [facility] when he leaves the apartment. Still drives.
SELLERS reviewed and signed, copy left with pt.
Confirms prescription coverage.
No hx VN or SNF.
PCP: Irlanda Diaz
Pharmacy: [facility]
Anticipate discharge home, no needs. SM will continue to follow.
[2025-03-26] MEDS: ULTRAM PO (15:45)
[2025-03-26] MEDS: LASIX 40 MG IV (15:46)
[2025-03-26] MEDS: ALDACTONE 12.5 MG PO (15:46)
[2025-03-26] MEDS: ELIQUIS 5 MG PO ×2 (15:46→20:30)
[2025-03-26] MEDS: ZESTRIL 10 MG PO (15:46)
--- NOTE | 2025-03-26 16:15 | PTCARENOTE ---
Received from ED, monitor showing AFlutter, HR 100s, BP 143/102. Denies pain at present, ambulatory to BR with cane. Lungs with bibasilar crackles noted, RA pulse ox 94-96%. Trace BLE edema noted, +pedal pulses. Oriented to room, call allen in reach.
BP rechecked after given lisinopril and IV lasix--127/92. Pt resting comfortably.
[2025-03-26] MEDS: THERAGRAN 1 TABLET PO (17:54)
[2025-03-26] MEDS: PROTONIX 40 MG PO (17:54)
[2025-03-26] MEDS: FLOMAX 0.4 MG PO (17:54)
[2025-03-26] MEDS: ULTRAM 50 MG PO (20:30)
[2025-03-26] MEDS: TOPROL XL 50 MG PO (20:30)
--- NOTE | 2025-03-26 21:00 | PTCARENOTE ---
Assumed care at 1900. Patient alert and oriented x3. Denies any chest pain. Denies any shortness of breath at rest. Patient sinus tach on tele. Heart rate 100-105. EKG completed. Patient on room air. Plan of care reviewed with patient. Call allen
within reach.
[2025-03-27] VITALS (11 sets, daily range): BP systolic 102–134; BP diastolic 55–90; BMI 25.8
[2025-03-27 04:02] LABS: Hematocrit 36.6 % (39.0-52.0); Hemoglobin 12.6 g/dL (13.0-18.0); Mean Corp Hgb Conc. 34.4 g/dL (33.0-37.0); Mean Corpuscular Volume 91.3 fL (80.0-94.0); Platelet Count 169 10^3/uL (130-400); Red Cell Dist. Width 13.7 % (11.5-14.5)
[2025-03-27 04:24] LABS: Blood Urea Nitrogen 18 mg/dl (9-20); Calcium 8.8 mg/dl (8.4-10.2); Carbon Dioxide 28 mmol/L (22-30); Chloride 102 mmol/L (98-107); Estimated Creatinine Clearance 55 ml/min; Glucose 89 mg/dl (70-99); Potassium 3.9 mmol/L (3.5-5.1); Sodium 133 mmol/L (135-145); eGFR > 60.00
--- NOTE | 2025-03-27 05:15 | PTCARENOTE ---
Patient sleeping between care overnight. Patient remains room air. Denies any shortness of breath. AM labs collected. Remains sinus tach on tele. Call allen within reach.
[2025-03-27] MEDS: TOPROL XL 50 MG PO ×2 (07:50→20:01)
[2025-03-27] MEDS: ULTRAM 50 MG PO ×2 (07:50→20:01)
[2025-03-27] MEDS: CRESTOR 40 MG PO (07:50)
[2025-03-27] MEDS: LASIX 40 MG IV (07:51)
[2025-03-27] MEDS: ALDACTONE 12.5 MG PO (07:51)
[2025-03-27] MEDS: ELIQUIS 5 MG PO ×2 (07:52→20:01)
[2025-03-27] MEDS: PROSCAR 5 MG PO (07:52)
--- NOTE | 2025-03-27 07:58 | W.PN.CD ---
Today's Communication / Plan
-
84-year-old male history of CABG 2010, HFrEF, ischemic cardiomyopathy with ejection fraction 30 to 35%, paroxysmal atrial fibrillation/atrial flutter, pacemaker/Medtronic, moderate to severe aortic stenosis, PSVT/atrial tachycardia who presented
with shortness of breath and fatigue. Patient had previously been noted to have atrial fibs and atrial flutter. Initiation of A-fib by device interrogation had been 03/16/2025. Patient initially had declined anticoagulation but after recent visit
with his primary leasing agent Dr. Jerome was started on Eliquis. Eventual plans for EP consultation for possible PVI and possible watchman. Patient presented with shortness of breath felt to have component of heart failure has received diuretic
and is currently feeling better. Remains in atrial flutter with heart rate 100
.
Atrial fibs/atrial flutter
- Continue anticoagulation with Eliquis
- Reviewed importance of anticoagulation particularly in the 4 weeks post cardioversion. Patient in agreement with complying with anticoagulation.
- Plan for SHAN cardioversion today
- Eventual EP consult as noted above
.
Shortness of breath. Consistent with heart failure. Improved after diuresis
.
Abnormal chest x-ray chest x-ray report raised question of possible pneumonia. Also component of heart failure. Clinically presentation more consistent with heart failure. Symptoms have now improved. No complaints of fever. Follow-up chest
x-ray later today
.
HFrEF/ischemic cardiomyopathy
- Improving
- EF 30-35
.
Aortic stenosis moderate to severe
.
Pacemaker
Impression / Plan
-
Plan for SHAN cardioversion today
Follow-up chest x-ray. Shortness of breath has improved with treatment of heart failure. Will reassess question of infiltrate noted on chest x-ray .
Physical Exam
Vital Signs/Labs
Vital Signs
Temp Pulse Resp BP Pulse Ox
98.2 F 98 20 131/90 94
03/27/25 07:15 03/27/25 03:34 03/27/25 07:15 03/27/25 03:34 03/27/25 07:15
03/26/25 03/27/25 03/28/25
06:59 06:59 06:59
Actual Weight 86.3 kg
03/27/25 03:30
03/27/25 03:30
03/26/25
09:59
Ysl-I-Tjzsevzixlf Pept [id number]
LAB Results
03/26/25
09:59
Troponin I 0.055 H*
Physical Exam
Constitutional: No acute distress
Cardiovascular: Rhythm & rate is regular and Systolic murmur present
Respiratory: Wheeze Absent and Rhonchi Absent
GI: Soft and Non tender
Neuro/Psych: Alert, Oriented and AO x 3
Other: Skin and Other
Data Reviewed
-
Date of Service: March 27, 2025
Medical Decision Making: Reviewed Test Results
Echo: Report Reviewed by me
Medical Tests (PFT, Pathology etc): Report Reviewed by me
Labs: Labs Reviewed by me
--- NOTE | 2025-03-27 08:56 | PTCARENOTE ---
Assumed care at 0700. Patient AO x3. Crackles left base, non-productive loose cough, denies shortness of breath at rest, POX 94%. A-flutter HR 102. Meds given with a sip of water. NPO for SHAN/CV today
--- NOTE | 2025-03-27 10:45 | PTCARENOTE ---
Patient sent to the propagator laborer after CXR for SHAN/CV
--- NOTE | 2025-03-27 12:33 | PTCARENOTE ---
Patient received post CV. A-Paced HR 72, BP 134/75. Voiding in the bathroom, assisted to be. Call allen in reach
[2025-03-27] MEDS: ZESTRIL 10 MG PO (13:46)
[2025-03-27] MEDS: FLOMAX 0.4 MG PO (17:00)
[2025-03-27] MEDS: PROTONIX 40 MG PO (17:00)
[2025-03-27] MEDS: THERAGRAN 1 TABLET PO (17:00)
[2025-03-28 02:53] VITALS: BP 126/83
[2025-03-28 02:59] VITALS: BMI 25.5
[2025-03-28 03:38] LABS: Blood Urea Nitrogen 25 mg/dl (9-20); Calcium 8.7 mg/dl (8.4-10.2); Carbon Dioxide 31 mmol/L (22-30); Chloride 101 mmol/L (98-107); Estimated Creatinine Clearance 50 ml/min; Glucose 91 mg/dl (70-99); Potassium 3.9 mmol/L (3.5-5.1); Sodium 138 mmol/L (135-145); eGFR 59.63
--- NOTE | 2025-03-28 05:18 | PTCARENOTE ---
Assumed care on pt at 1900, aaox3, denies CP or SOB, Apaced on tele, HR mid 70-80's. lungs diminished, Pox 96% RA. Bp stable. Voiding in the bathroom, voicing no issues, good output. POC ongoing, call allen within reach.
[2025-03-28 06:47] VITALS: BP 107/78
--- NOTE | 2025-03-28 07:52 | W.PN.CD ---
Today's Communication / Plan
-
Discharge plannning
Impression / Plan
-
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
flutter with 2:1 conduction.
Cardiology: Cesar
Atrial flutter
- back in sr
- eval for ablation in Apr
- cont eliquis
Heart failure with reduced ejection fraction (EF 30-35%)
- May have a mild CHF exacerbation in the setting of rapid atrial flutter
- Start IV Lasix 40 mg daily which requires intensive monitoring
- GDMT:
- BB: Metoprolol succinate 50 mg twice daily
- MALU/ARB/ARNI: Continue lisinopril 30 mg daily
- MRA: Continue spironolactone 12.5 mg daily
- SGLT2 inhibitor: Cost prohibitive
- Consider ICD long-term
Coronary artery disease status post CABG (2010)
- Stable. No anginal symptoms.
- Continue rosuvastatin
- Stop aspirin given that he recently started Eliquis
Sick sinus syndrome s/p PPM
Aortic stenosis: Moderate on last echocardiogram in December 2024
Physical Exam
Vital Signs/Labs
Vital Signs
Temp Pulse Resp BP Pulse Ox
98.7 F 72 18 107/78 95
03/28/25 06:53 03/28/25 07:00 03/28/25 06:53 03/28/25 06:47 03/28/25 06:53
03/27/25 03/28/25 03/29/25
06:59 06:59 06:59
Actual Weight 190 lb 4.143 oz 188 lb 0.869 oz
03/27/25 03:30
03/28/25 02:58
03/26/25
09:59
Vsx-D-Vhtsgzabmte Pept [id number]
LAB Results
03/26/25
09:59
Troponin I 0.055 H*
Physical Exam
Constitutional: No acute distress
EENT: Anicteric
Cardiovascular: Rhythm & rate is regular
Respiratory: Respiratory effort normal and Lungs clear to auscul.
GI: Soft
Data Reviewed
-
Date of Service: March 28, 2025
EKG: Tracing Personally Visualized and interpreted (sr)
Echo: Report Reviewed by me
Labs: Labs Reviewed by me
[2025-03-28] MEDS: ALDACTONE 12.5 MG PO (08:06)
[2025-03-28] MEDS: TOPROL XL 50 MG PO (08:06)
[2025-03-28] MEDS: CRESTOR 40 MG PO (08:07)
[2025-03-28] MEDS: PROSCAR 5 MG PO (08:07)
[2025-03-28] MEDS: ULTRAM 50 MG PO (08:07)
[2025-03-28] MEDS: ELIQUIS 5 MG PO (08:07)
--- NOTE | 2025-03-28 08:30 | PTCARENOTE ---
pt aaox3. states no pain. wants to go home. a paced seen on monitor.
--- NOTE | 2025-03-28 09:13 | W.DS.TRANS ---
DC Summary - Contracts Representative
-
Discharge Instructions:
Discharge Diagnosis/Procedures Atrial flutter
Procedure: SHAN/DCCV 03/27/2025
HFrEF, acute on chronic
Diet Restrict fluids to 48 oz,2 Gram Sodium
Activity No strenuous activity
Driving Restrictions As prior to admission
Bathing Restrictions None
Specialty Instructions Weigh Daily
Instructions:
Stand-Alone Forms:
Changes to Home Medications: No
Discharge Medications:
DC Medications w/original date entered in [employer]
rosuvastatin 40 mg tablet (Crestor) 40 mg PO DAILY High cholesterol 07/01/17
vitamin E (dl, acetate) 45 mg (100 unit) capsule 100 units PO QPM Supplement 07/01/17
finasteride 5 mg tablet 5 mg PO DAILY prostate issues 04/11/21
tramadol 50 mg tablet 50 mg PO BID@0800,1200 Pain 04/11/21
tamsulosin 0.4 mg capsule 0.4 mg PO QPM Urinary issue 04/12/21
aspirin 81 mg tablet,delayed release 81 mg PO DAILY Blood Clot Prevention/Tx 11/19/23
pantoprazole 40 mg tablet,delayed release 40 mg PO QPM Gastrointestinal Issue 12/19/24
apixaban 5 mg tablet (Eliquis) 5 mg PO BID 03/26/25
furosemide 40 mg tablet 40 mg PO DAILYPRN PRN weight gain 03/26/25
lisinopril 10 mg tablet 10 mg PO DAILY 03/26/25
therapeutic multivitamin 1 tab PO DAILY 03/26/25
metoprolol succinate 50 mg tablet,extended release 24 hr 50 mg PO BID #60 tabs 03/28/25
spironolactone 25 mg tablet 12.5 mg (1/2 x 25 mg) PO DAILY #15 tabs 03/28/25
Home Medication Changes
No medication changes were made during this hospitalization
Pending Results: No
== END 2025-03-28 10:21 | disposition home or self-care (01) ==
LOC: IVU 13:04
PROVIDERS: ADMITTING PHYSICIAN Student in an Organized Health Care Education/Training Program; EMERGENCY PHYSICIAN Emergency Medicine; FAMILY PHYSICIAN Family Medicine
DX: I48.92 Unspecified atrial flutter (principal); R00.2 Palpitations; I48.19 Other persistent atrial fibrillation; I25.10 Atherosclerotic heart disease of native coronary artery without angina pectoris; I08.0 Rheumatic disorders of both mitral and aortic valves; I11.0 Hypertensive heart disease with heart failure; N40.0 Benign prostatic hyperplasia without lower urinary tract symptoms; E78.00 Pure hypercholesterolemia, unspecified; R00.8 Other abnormalities of heart beat; I25.5 Ischemic cardiomyopathy; I50.23 Acute on chronic systolic (congestive) heart failure; J44.0 Chronic obstructive pulmonary disease with (acute) lower respiratory infection; I25.2 Old myocardial infarction; Z60.2 Problems related to living alone; Z95.1 Presence of aortocoronary bypass graft; Z95.0 Presence of cardiac pacemaker; Z87.891 Personal history of nicotine dependence; Z82.49 Family history of ischemic heart disease and other diseases of the circulatory system; Z79.01 Long term (current) use of anticoagulants; Z79.82 Long term (current) use of aspirin; Z79.891 Long term (current) use of opiate analgesic; Z79.899 Other long term (current) drug therapy
CPT/HCPCS: 71046; 80048; 80053; 83880; 84443; 84484; 85025; 85027; 92960; 93005; 93312; 93320; 93325; 96374; 99285; G0378